=== PATIENT | female | born 1945 | race Caucasian/White ===

== ENCOUNTER 2024-11-25 22:06 | Inpatient (IN) | payer OTHER, SELFPAY ==
[2024-11-25] VITALS (9 sets, daily range): BP systolic 97–121; BP diastolic 59–85; BMI 27.0; BMI 26.3
--- NOTE | 2024-11-25 15:58 | ED TECH ---
hard stick. unable to obtain labs in triage
--- NOTE | 2024-11-25 17:30 | ED.GENMED ---
History of Present Illness
General
Chief Complaint: Breathing Problem
Source: patient
Exam Limitations: none
Time Seen by Provider: 11/25/24 17:06
History of Present Illness
History of Present Illness:
79yoF with a history of coronary artery disease s/p CABG x3 8 months ago, atrial fibrillation, CHF, and tobacco use (1/2ppd) presenting for evaluation of shortness of breath. Patient has been having issues with dizziness and shortness of breath
over the past 1-1.5 months. She is having issues with ambulation and states she will feel like she is going to fall over due to feeling dizzy and short of breath. Symptoms are also triggered by bending over or reaching overhead. She went to
[facility] 2 days ago due to shortness of breath after she ran out of her inhaler. She was already scheduled to have an AICD placed today but she is unsure why. She was admitted for 27 hours and states she spent the first 25 hours in the ED. Once
she got up to a room yesterday, she was told that her ICD placement was cancelled due to poor kidney function and that she may need dialysis. Patient left AMA and is here for a second opinion. She also reports being told 2 weeks ago that she had
heart failure and has never been told this before. Her primary safety technician is Dr. Dowd at [place].
Phy Exam
Physical Exam
Physical Exam:
Chronically ill-appearing, no acute distress
General Physical Exam
General Presentation: no apparent distress
General Skin: warm and dry
General Habitus: elderly
General Mental: alert
ENT Exam
ENT Exam: normocephalic
Cardiovascular Exam
Cardiovascular Exam: regular rate/rhythm and other (1-2+ pitting edema in lower extremities)
Pulmonary Exam
Pulmonary Exam: lungs clear, no respiratory distress, no crackles and no rhonchi
Neurological Exam
Neurological Exam: alert
Juliocesar Coma Scale
Eye Opening: Spontaneous
Verbal Response: Oriented
Motor Response: Obeys Commands
GCS Total Score: 15
Skin Exam
Skin Exam: normal color and warm/dry
Psychiatric Exam
Psychiatric Exam: normal mood/affect
Scores
Heart Failure Risk
Heart Failure Risk Score: Not Applicable
Course
Orders/Labs/Results
Orders:
Orders
11/25/24 Dinner
Cholesterol Lowering
At Your Request: Full Participation
Cholesterol Lowering: Sodium, 2 Gram
11/25/24 15:23
ECG [Electrocardiogram (*1)] Urgent
Reason for Study: Shortness of Breath
EKG- Treatment ONCE
11/25/24 17:39
Cardiac Monitoring- Treatment ONCE
CR Chest - 2 Views Urgent
Comment:
Reason For Exam: SOB
11/25/24 18:33
Complete Blood Count/With Diff Urgent
Comprehensive Metabolic Panel Urgent
11/25/24 19:39
NT-proBNP Urgent
Troponin I Urgent
11/25/24 20:39
Furosemide [Lasix] 40 mg IV NOW STA
11/25/24 21:32
Admit/Transfer Patient As Directed
Co-Sign Provider:
Level of Care: Inpatient admission
Assign to:: Telemetry
Physician / Group: [email or web address]
Diagnosis: chf exacerbation
Reason for Telemetry: Arrhythmia
Date to Stop Telemetry: 11/28/24
Time to Stop Telemetry: 11:00
Reason for Hospitalization: chf exacerbation
Expected length of stay greater than two midnights?: Yes
ELOS- Estimated Length of Stay in days: 2
I certify the patient meets the requirements for IP care: Yes
Code Status As Directed
Resuscitation Status: Do not resuscitate
Reached after discussion with pt or family/Healthcare POA: Yes
DNR Bracelet Application ONCE
PRN Pain Medication Management As Directed
May give lesser potent ordered pain med per pt: Yes
preference::
Protocol:: Medication orders for pain may be administered in a
manner that supports deferring to patient preference
when the pt is:
- Requesting an ordered lesser potent pain medication.
Least to most potent pain medications are defined
as: acetaminophen < NSAID < tramadol < opioids
(morphine, oxycodone, hydromorphone).
- Requesting a lesser dose of the same medication IF
ORDERED.
- Requesting a less intrusive route of administration
if both routes are prescribed by the provider (PO <
IV).
11/25/24 21:43
polyvinyl alcohol 2 drop OPHTH TID PRN
11/25/24 22:41
Atorvastatin [Lipitor] 40 mg PO HS
11/25/24 22:41
Activity As Directed
Activity Level: As Tolerated
Pneumatic Compression Sleeves As Directed
Type: Knee high
Vital Signs As Directed
Frequency: Per unit guidelines
DX Deep Vein Thrombosis Video Routine
11/25/24 22:53
Carboxymethylcellulose [Refresh Celluvisc Gel] 1 drops BOTH EYES Q6HPRN PRN
11/25/24 23:00
Artificial Tears (Pf) [Refresh Eye Drops (Pf)] 2 drops OPHTH ONCE ONE
11/26/24 06:00
Complete Blood Count/With Diff IN AM
Comprehensive Metabolic Panel IN AM
Levothyroxine [Synthroid] 150 mcg PO DAILY @ 0600
11/26/24 08:00
Amiodarone [Pacerone] 200 mg PO BID
Aspirin Low Dose EC [Aspir Low (Enteric Coated)] 81 mg PO DAILY
Calcium Carbonate [Oscal Shen 500] 500 mg PO DAILY
Metoprolol Xl [Toprol Xl] 25 mg PO BID
Rivaroxaban [Xarelto] 15 mg PO DAILY
Tiotropium [place] 2.5 Mcg [Spiriva Respimat 2.5 Mcg] 2 puff INH R DAILY
11/28/24 11:00
DC Protocol for Telemetry ONCE
Abnormal Lab Results
11/25/24 11/25/24
18:33 19:39
RBC 3.87 L 10^6/uL
(4.20-5.40)
Hgb 11.5 L g/dL
(12.0-16.0)
Hct 34.9 L %
(37.0-47.0)
RDW 21.2 H %
(11.5-14.5)
Absolute Lymphs (auto) 0.4 L 10^3/uL
(1.2-3.4)
Immature Gran % 0.6 H %
(0-0.5)
Neutrophils % 85.7 H %
(42.2-75.2)
Lymphocytes % 5.9 L %
(20.5-51.1)
Chloride 112 H mmol/L
(98-107)
BUN 64 H mg/dl
(7-17)
Creatinine 2.3 H mg/dL
(0.6-1.0)
Glucose 124 H mg/dl
(70-99)
Calcium 7.6 L mg/dl
(8.4-10.2)
AST 57 H U/L
(14-36)
ALT 73 H U/L
(0-35)
Troponin I 0.051 H* ng/ml
11/25/24 18:33
11/25/24 18:33
Vital Signs
Initial and Last Documented VS:
Initial Vital Signs
Temp Pulse Resp BP Pulse Ox
97.5 F 87 22 110/66 99
11/25/24 15:37 11/25/24 15:37 11/25/24 15:37 11/25/24 15:37 11/25/24 15:37
Last Documented Vital Signs
Temp Pulse Resp BP Pulse Ox
97.7 F 95 18 121/79 97
11/25/24 23:00 11/25/24 23:00 11/25/24 23:00 11/25/24 23:00 11/25/24 23:00
MDM/Problems Addressed
Differential Diagnosis Includes:
79yoF here for a second opinion after leaving AMA from [facility] yesterday. Patient is a poor historian and is unable to provide any details from her hospital stay. She was scheduled to have an AICD placed today which was cancelled due to
poor kidney function. We were able to obtain records from [facility]. She was noted to be hyperkalemic with an OFELIA 2 days ago. Creatinine was up to 3.5 and baseline was around 1.5. She was also treated with IV diuresis. Patient is chronically
ill-appearing in no distress. She does have some peripheral edema on exam. Differential diagnosis includes but is not limited to: CHF exacerbation, OFELIA, cardiorenal syndrome, less likely ACS
Initial ED plan: Check cardiac labs, EKG, and chest x-ray.
*Pulse Oximetry
SaO2: 99
Oxygen Mode of Delivery: Room air
Patient hypoxic: no (99%)
*EKG
Interpreted by ED Provider?: Yes
EKG Intrepretation Date: 11/25/24
Heart Rate: 94
Rate: normal
Rhythm: sinus
[place]: left axis deviation
QRS Pattern: left bundle branch block
Ischemia: no ischemia
*Critical Care Note
Total Time (30-74mins, 75-104mins- exclusive of procedures): Not Applicable
Update Note
Update Note:
Creatinine has improved to 2.3 but is still above baseline. Potassium within normal limits. Troponin 0.051 which is similar to the values from her recent hospitalization. BNP >27K. Chest x-ray shows evidence of vascular congestion. 40 mg IV
Lasix ordered and patient admitted for further management.
ED Attending Note
-
Portions of this chart may have been created with voice recognition software.� Occasional wrong word or��sound alike� substitutions may have occurred due to the inherent limitations of voice recognition software.
Discharge Plan
Departure
Patient Disposition: Admit
Date of Disposition: 11/25/24
Time of Disposition: 20:44
Presentation/result/management discussed w/ accepting MD/DO: Hospitalist
Discharge Problem:
Acute kidney injury, Acute exacerbation of CHF (congestive heart failure)
Interventions
Interventions:
*Risk Screen - Suicide Last Done: 11/25/24 15:49
*General Assessment Last Done: 11/25/24 17:35
*Neglect/Abuse Screening Last Done: 11/25/24 15:49
*ED- Fall Risk Assessment Last Done: 11/25/24 17:35
*ED COVID-19 Vaccine History Last Done: 11/25/24 17:35
*Nursing Disposition Last Done: 11/25/24 22:59
ED- Cardiac Assessment Last Done: 11/25/24 17:35
ED- Pulmonary Assessment Last Done: 11/25/24 17:35
Discharge Date and Time
Discharge Date/Time: 11/25/24 22:40
[2024-11-25 18:39] LABS: Hematocrit 34.9 % (37.0-47.0); Hemoglobin 11.5 g/dL (12.0-16.0); Mean Corp Hgb Conc. 33.0 g/dL (33.0-37.0); Mean Corpuscular Volume 90.2 fL (81.0-99.0); Nucleated Red Blood Cells % 0.8 %; Platelet Count 238 10^3/uL (130-400); Red Cell Dist. Width 21.2 % (11.5-14.5)
[2024-11-25 19:10] LABS: ALT (SGPT) 73 U/L (0-35); AST (SGOT) 57 U/L (14-36); Albumin 3.7 g/dl (3.5-5.0); Alkaline Phosphatase 119 U/L (38-126); Blood Urea Nitrogen 64 mg/dl (7-17); Calcium 7.6 mg/dl (8.4-10.2); Carbon Dioxide 22 mmol/L (22-30); Chloride 112 mmol/L (98-107); Estimated Creatinine Clearance 19 ml/min; Glucose 124 mg/dl (70-99); Potassium 4.3 mmol/L (3.5-5.1); Sodium 141 mmol/L (135-145); Total Protein 6.4 g/dl (6.3-8.2); eGFR 21.22
[2024-11-25 20:13] LABS: Troponin I 0.051 ng/ml
[2024-11-25] MEDS: LASIX 40 MG IV (20:48)
--- NOTE | 2024-11-25 21:34 | HPS.HSE ---
Family Physician
-
Family Physician: * NONE
Chief Complaint
-
shortness of breath
History of Present Illness
79-year-old female past medical history of CAD status post CABG 8 months ago, paroxysmal atrial fibrillation on Xarelto, CKD 3B, ischemic cardiomyopathy, COPD, pulmonary hypertension pulmonary embolism, aortic valve replacement, severe mitral valve
regurgitation status post replacement with tissue graft, thyroid resection with hypothyroidism, laryngeal cancer status post resection, obesity, presenting with shortness of breath. She has been having dizziness and shortness of breath for the past
few months. She was admitted at [facility] recently for decompensated CHF complicated by hypotension as well as OFELIA and hyperkalemia. She was gently diuresed.
She is having issues with ambulation and states that she feels like she is going to fall over due to feeling dizzy and short of breath. This is also triggered by bending over or reaching overhead. She went to [facility] 2 days ago due to shortness
of breath after she ran out of her inhaler. She was scheduled to have an ICD placed today for ischemic cardiomyopathy.. While at [facility] she was admitted for 27 hours and she spent the first 25 hours in the emergency room. She states that after
she got up to her room he was told that the ICD placement was canceled due to poor kidney function and possibly requiring dialysis. She left AMA because she was not getting answers from the physicians.
2 weeks ago she was told that she was in congestive heart failure denies any prior history of this. Her primary tenderizer tender is Dr. Dowd at [place].
Medical History
Past Medical History
Past Medical History: Reports Other (CAD status post CABG 8 months ago, paroxysmal atrial fibrillation on Xarelto, CKD 3B, ischemic cardiomyopathy, COPD, pulmonary hypertension pulmonary embolism, aortic valve replacement, severe mitral valve
regurgitation status post replacement with tissue graft, thyroid resection with hypothyroidism)
Past Surgical History: Reports Other (Thyroidectomy, esophageal cancer s/p resection, right carpal tunnel repair, tracheostomy,)
Social History
Tobacco: Smoker
Alcohol: None
Drug: None
Family History
Family History: Not pertinent
Allergies / Home Medications
Allergies reflects when Allergies were last updated in ?.
Home Medications with original date entered in ?
Allergy/Medication List:
Allergies
Allergy/AdvReac Type Severity Reaction Status Date / Time
levothyroxine Allergy Intermediate Unknown Verified 11/25/24 15:37
Home Medications
amiodarone 200 mg tablet 200 mg PO BID 11/25/24
aspirin 81 mg tablet,delayed release 81 mg PO DAILY 11/25/24
atorvastatin 40 mg tablet (Lipitor) 40 mg PO HS 11/25/24
calcium carbonate 500 mg PO DAILY 11/25/24
carboxymethylcellulose 0.5 %-glycerin 0.9 % eye drops (Refresh Optive) 1 drp BOTH EYES Q6HPRN PRN dryness 11/25/24
levothyroxine 150 mcg tablet (Synthroid) 150 mcg PO DAILY 11/25/24
metoprolol succinate 25 mg tablet,extended release 24 hr (Toprol XL) 25 mg PO BID 11/25/24
polyvinyl alcohol 1.4 % eye drops 2 drp ophthalmic (eye) TID PRN Reduction Of Transepidermal Water Loss 11/25/24
rivaroxaban 15 mg tablet (Xarelto) 15 mg PO DAILY 11/25/24
sacubitril 24 mg-valsartan 26 mg tablet (Entresto) 1 tab PO BID 11/25/24
umeclidinium 62.5 mcg/actuation blister powder for inhalation (Incruse Ellipta) 1 inh inhalation R DAILY 11/25/24
Review of Systems
-
History Source: Patient
A 12 point ROS was completed and negative except as noted: Yes
Constitutional: Reports No Symptoms
EENT: Reports No Symptoms
Respiratory: Reports See HPI
Cardiac: Reports See HPI
Abdomen/GI: Reports No Symptoms
: Reports No Symptoms
Musculoskeletal: Reports No Symptoms
Skin: Reports No Symptoms
Neurological: Reports No Symptoms
Endocrine: Reports No Symptoms
Hematologic/Lymphatic: Reports No Symptoms
Psych: Reports No Symptoms
Physical Exam
Vital Signs
Vital Signs
Temp Pulse Resp BP Pulse Ox
97.5 F 92 16 99/68 96
11/25/24 15:37 11/25/24 21:15 11/25/24 21:15 11/25/24 21:00 11/25/24 21:15
Physical Exam
General: Well Developed, Well Nourished and No Apparent Distress
HEENT: NormoCephalic, Moist mucous membranes and Atraumatic
Respiratory: Clear
Cardiac: S1/S2, Regular Rhythm and Peripheral Edema; No Murmur or Rub
GI: Soft, Non Tender, Non Distended and Normal Bowel Sounds; No Organomegaly
Rectal: Deferred by Provider
Musculoskeletal: No Clubbing, No Cyanosis and No Edema
Skin: No Rash
Neuro: Nonfocal/grossly intact
Laboratory Results
-
11/25/24 18:33
11/25/24 18:33
Laboratory Results
Total Bilirubin 1.3 mg/dl (0.2-1.3) 11/25/24 18:33
AST 57 U/L (14-36) H 11/25/24 18:33
ALT 73 U/L (0-35) H 11/25/24 18:33
Alkaline Phosphatase 119 U/L (38-126) 11/25/24 18:33
Troponin I 0.051 ng/ml H* 11/25/24 19:39
Data Reviewed
-
Lab Data: Labs Reviewed by me
Old Records: Reviewed
Impression/Plan
-
IMPRESSION:
PLAN:
# Acute HFrEF exacerbation
# Advanced ischemic cardiomyopathy associate with hypotension
- Chest x-ray shows cardiomegaly, vascular flow appears cephalized suggesting elevated pulmonary venous pressures
- Cardiac BNP greater than 27,000
-EKG shows sinus rhythm with first-degree AV block with PACs
- Check I's and O's, daily weights
-40 IV Lasix given with blood pressure down to 90s
-Echo from September 28 shows EF of 10 to 15%, dense spontaneous echo contrast is noted in the left atrium layered thrombus is likely present
-Was supposed to have AICD placed today
- Cardiology consulted
# Acute kidney injury secondary to cardiorenal syndrome on CKD 3B
-Baseline creatinine around 1.5, was 3.5 two days ago
- Monitor with diuresis
-Continue to hold Entresto, spironolactone
- Nephrology consult
Aortic valve replacement
Bioprosthetic mitral valve replacement
Severe tricuspid regurgitation
# Transaminitis likely secondary to hepatic venous congestion
- Continue to monitor
CAD status post CABG
- Continue aspirin, statin
Paroxysmal atrial fibrillation
- Continue amiodarone
- Continue metoprolol
- Continue Xarelto
COPD
- Continue Incruse Ellipta
Pulmonary hypertension
Pulmonary nodules
Active smoker
- Smokes at least a pack a day
- Nicotine patch
Chronic anemia
- Hemoglobin 11.5
Hypothyroidism
- Continue levothyroxine
Esophageal cancer status post resection
Hyperlipidemia
DNR/DNI
DVT prophylaxis�Eliquis
cardiac diet
--- NOTE | 2024-11-25 23:00 | PTCARENOTE ---
Pt arrived to [address] from ED via stretcher. Pt able to stand and pivot to bed 317-2 with staff x2. Pt HINOJOSA, dizzy, feeling weak. Oriented to room with call reyes within reach. Care ongoing.
[2024-11-25] MEDS: REFRESH EYE DROPS (PF) 2 DROPS OPHTH (23:33)
[2024-11-25] MEDS: LIPITOR 40 MG PO (23:34)
[2024-11-26 03:00] VITALS: BP 102/64
[2024-11-26] MEDS: SYNTHROID PO (05:18)
[2024-11-26] MEDS: SPIRIVA RESPIMAT 2.5 MCG 2 PUFF INH (07:34)
[2024-11-26 07:36] LABS: Hematocrit 38.6 % (37.0-47.0); Hemoglobin 12.2 g/dL (12.0-16.0); Mean Corp Hgb Conc. 31.6 g/dL (33.0-37.0); Mean Corpuscular Volume 92.3 fL (81.0-99.0); Nucleated Red Blood Cells % 0.3 %; Platelet Count 241 10^3/uL (130-400); Red Cell Dist. Width 21.1 % (11.5-14.5)
[2024-11-26 07:45] LABS: ALT (SGPT) 71 U/L (0-35); AST (SGOT) 54 U/L (14-36); Albumin 4.1 g/dl (3.5-5.0); Alkaline Phosphatase 127 U/L (38-126); Blood Urea Nitrogen 60 mg/dl (7-17); Calcium 7.5 mg/dl (8.4-10.2); Carbon Dioxide 24 mmol/L (22-30); Chloride 110 mmol/L (98-107); Estimated Creatinine Clearance 19 ml/min; Glucose 77 mg/dl (70-99); Potassium 4.0 mmol/L (3.5-5.1); Sodium 143 mmol/L (135-145); Total Protein 7.0 g/dl (6.3-8.2); eGFR 21.22
[2024-11-26 07:50] VITALS: BP 119/76
[2024-11-26] MEDS: TOPROL XL 25 MG PO ×2 (08:53→21:03)
[2024-11-26] MEDS: XARELTO 15 MG PO (08:53)
[2024-11-26] MEDS: ASPIR LOW (ENTERIC COATED) 81 MG PO (08:53)
[2024-11-26] MEDS: PACERONE 200 MG PO ×2 (08:53→21:03)
[2024-11-26] MEDS: OSCAL CAL 500 500 MG PO (08:53)
[2024-11-26 09:00] VITALS: BMI 26.0
--- NOTE | 2024-11-26 10:08 | CON.CAR ---
Addendum entered and electronically signed by Casey Parks MD 11/26/24 19:47:
79-year-old woman reportedly with with history of CABG/bioprosthetic mitral valve replacement early 2024 who presented to [facility] with acute heart failure, presumed with reduced EF associated with hypotension and OFELIA. She left [facility] AM after
being told that she would get ICD which was then subsequently postponed related to OFELIA/CKD 3B. Typically followed at [place] with Dr. Dowd.
PMH: Laryngeal cancer/remote tracheostomy, pulmonary hypertension with prior pulmonary embolism, obesity, PAF on Xarelto, hypothyroidism
PSH: Thyroidectomy, esophageal cancer status postresection, thyroidectomy, carpal tunnel, CABG, bioprosthetic mitral valve replacement, left atrial appendage clip
SH: Smoker, no alcohol, single, worked in a [employer]
Current meds: Amiodarone 200 mg twice daily, aspirin 81 mg a day, atorvastatin 40 mg a day, levothyroxine 150 mcg daily, metoprolol ER 25 mg twice daily, rivaroxaban 15 mg a day, Spiriva
119/76, pulse 97, respiratory rate 14, talkative, pleasant, no acute distress, raspy voice, head neck exam unremarkable lungs are diminished in bases and somewhat decreased throughout with presumed underlying COPD, regular rate rhythm without
murmurs or gallops, JVD difficult to assess, abdomen benign, extremities without edema, distal pulses somewhat diminished
Sinus rhythm with first-degree AV block and PVCs, left bundle branch block with left axis
Hemoglobin 12.2, BUN/creatinine 60 and 2.3, potassium 4, proBNP greater than 27,000, troponin 0.051
Impression:
Acute on chronic heart failure with reduced EF
CABG 2024
Bioprosthetic mitral valve 2024
Presumed COPD
Paroxysmal atrial fibrillation on amiodarone
Hypertension
Hyperlipidemia
History of laryngeal carcinoma
History of pulmonary embolism
History of morbid obesity, over 200 pounds weight loss
OFELIA on CKD 3B
Plan:
All things considered, she looks surprisingly well. Her proBNP is greater than 27,000 but she is not in distress.
Entresto is currently on hold.
Optimization of GDMT will be challenging. Unclear whether Entresto can be restarted related to renal function and hypotension. Similarly, TAHIRA/ARB/spironolactone are best held at present. SGLT2 antagonist could be considered based on where GFR
settles out. Await renal consultation.
We will review records and optimize meds as possible. Check echocardiogram.
Will likely need ICD implant when optimized, encouraged her to follow-up to Dr. Dowd.
Original Note:
Consultation
Consultation Request
Date/Time Consultation Requested: 11/25/2024, 2234
Date/Time Consultation Performed: 10/31, 899
Requesting Provider: Dr. Long
Performing Provider: LENNOX Arce for Dr. Parks
Reason for Consultation: History of heart failure
Medical History
-
Chief Complaint: History of heart failure, kidney disease
History of Present Illness:
79-year-old female with past medical history of coronary artery disease and valvular heart disease status post CABG, AVR, and MVR approximately 8 months ago at [facility], paroxysmal atrial fibrillation on Xarelto, ischemic cardiomyopathy, chronic
kidney disease 3B, COPD, current smoker, pulmonary hypertension, pulmonary embolism, laryngeal cancer status post resection approximately 10 years ago, thyroid resection with hypothyroidism, obesity. She follows with Dr. Favian Dowd at [facility]
[place]. She was scheduled for elective ICD implantation there yesterday. She tells me she was there for 7 hours prior to getting a room and was then told that ICD could not be placed due to impaired kidney function and admission was suggested.
She was frustrated and left AMA. She then came to [place] as her son-in-law has been seen here and she wanted a second opinion.
She reports she had not seen a physician in 10 to 12 years until about a year ago when she developed shortness of breath and was found to have coronary artery disease and valvular heart disease status post CABG, AVR, and MVR. She tells me that ICD
has been advised and this was the third time the procedure was canceled. She denies history of syncope, palpitations, lightheadedness. No known ventricular arrhythmias. Does have history of paroxysmal atrial fibrillation and is on Xarelto and
amiodarone.
Yesterday was the first time she was aware that her kidney function was poor and that dialysis may be advised.
Currently reports she feels well and has no shortness of breath, palpitations, chest pain, edema, PND, orthopnea.
ED evaluation:
Chest x-ray: Vascular flow appears cephalized suggesting elevated pulmonary venous pressure
EKG: Normal sinus rhythm with first-degree AV block and left bundle branch block
proBNP greater than 27,000
Troponin 0.051, second troponin pending
BUN/creatinine 64/2.3, NA 141, K4.3, AST/ALT 57/73, hemoglobin 11.5, WBC 6.5, platelet 238.
Past medical history:
Coronary artery disease status post CABG approximately 8 months ago
Valvular heart disease status post AVR approximately 8 months ag0
Severe MR status post tissue mitral valve replacement approximately 8 months ago
Paroxysmal A-fib on Xarelto and amiodarone
Ischemic cardiomyopathy
COPD
Chronic kidney disease stage IIIb
Thyroid resection with hypothyroidism
Esophageal cancer status post resection
Obesity
Past Medical History
Past Medical History: Other (As above)
Past Surgical History: Other (Thyroidectomy, esophageal resection, CABG, AVR, MVR)
Social History
Tobacco: Smoker (Half pack per day)
Alcohol: Occasional (Rare)
Living: Alone
Family History
Family History: Reviewed & Not Pertinent
Allergies / Home Medications
Allergy/AdvReac Type Severity Reaction Status Date / Time
levothyroxine Allergy lethargic Verified 11/25/24 22:42
�Medication �Instructions �Recorded �Confirmed �Type
amiodarone 200 mg tablet 200 mg PO BID Arrhythmia 11/25/24 11/25/24 History
aspirin 81 mg tablet,delayed 81 mg PO DAILY Blood Clot 11/25/24 11/25/24 History
release Prevention/Tx
atorvastatin 40 mg tablet (Lipitor) 40 mg PO HS High Cholesterol 11/25/24 11/25/24 History
calcium carbonate 500 mg PO DAILY Gastrointestinal 11/25/24 11/25/24 History
Issue
carboxymethylcellulose 0.5 1 drp BOTH EYES Q6HPRN PRN dryness 11/25/24 11/25/24 History
%-glycerin 0.9 % eye drops
(Refresh Optive)
levothyroxine 150 mcg tablet 150 mcg PO DAILY Thyroid 11/25/24 11/25/24 History
(Synthroid)
metoprolol succinate 25 mg 25 mg PO BID Heart Failure 11/25/24 11/25/24 History
tablet,extended release 24 hr
(Toprol XL)
polyvinyl alcohol 1.4 % eye drops 2 drp ophthalmic (eye) TID PRN 11/25/24 11/25/24 History
Reduction Of Transepidermal Water
Loss
rivaroxaban 15 mg tablet (Xarelto) 15 mg PO DAILY Blood Clot 11/25/24 11/25/24 History
Prevention/Tx
sacubitril 24 mg-valsartan 26 mg 1 tab PO BID Heart Failure 11/25/24 11/25/24 History
tablet (Entresto)
umeclidinium 62.5 mcg/actuation 1 inh inhalation R DAILY 11/25/24 11/25/24 History
blister powder for inhalation Lung/Breathing Issues
(Incruse Ellipta)
Review of Systems
-
History Source: Patient
All other systems: Negative unless noted
Physical Exam
Vital Signs
Temp Pulse Resp BP Pulse Ox
97.6 F 97 14 119/76 95
11/26/24 07:50 11/26/24 07:50 11/26/24 07:50 11/26/24 07:50 11/26/24 07:43
GEN: No distress, awake, Ox3
HEENT: supple, anicteric, mmm
LUNGS: CTA, no wheezes/rales
CV: Reg, S1/S2, 1/6 syst LSB,
ABD: soft, BS+, NT/ND
EXT: No edema
NEURO: Gross non-focal
SKIN: Ecchymosis right upper extremity
Lab Results
11/26/24 07:01
11/26/24 07:01
Troponin I Cancelled 11/26/24 09:15
Kyt-M-Tarihmyrcmx Pept > 86372 pg/ml 11/25/24 19:39
Impression / Plan
-
PCP:
Primary poultry packer: Favian Dowd at [facility] [phone]
Impression:
Acute on chronic heart failure reduced EF
History of coronary artery disease status post CABG
Ischemic cardiomyopathy
Valvular heart disease status post AVR and MVR
Chronic kidney disease stage IIIB
A-fib
Left bundle branch block
Hypothyroidism status post thyroid resection
Laryngeal cancer status post resection
Previous cardiovascular studies:
Awaiting records from previous poultry packer
Plan:
Acute on chronic heart failure reduced EF
--proBNP greater than 27,000 and chest x-ray suggest elevated pulmonary venous pressures
- Patient denies shortness of breath.
- Received 1 dose of IV Lasix 40mg in ED but then with hypotension so now on hold
-Creatinine 2.3. Await records to see if this is her baseline.
- On Entresto, spironolactone, Toprol in outpatient setting
- Continue Toprol
- Hold Entresto and spironolactone due to OFELIA and hypotension
- Awaiting records from primary poultry packer
- She reports ICD advised and procedure canceled 3 times, most recently yesterday due to OFELIA with creatinine reportedly 3.5. Creatinine currently 2.3.
- Daily weights, I& O
- Once passed records reviewed, further recommendations may be made
Paroxysmal atrial fibrillation
- Continue oral anticoagulation with Xarelto. On 15 mg dose due to reduced GFR
- Continue home amiodarone, metoprolol
- Telemetry personally reviewed: Normal sinus rhythm with left bundle branch block 80s to 90s
Data Reviewed
-
EKG: Tracing Personally Visualized and interpreted
Labs: Labs Reviewed by me
Old Records: Requested
[2024-11-26 10:42] LABS: Troponin I 0.051 ng/ml
--- NOTE | 2024-11-26 11:00 | HFEDUCATE ---
79yo female admitted with SOB. Her Past medical history includes Acute HFrEF, cardiomyopathy, CAD, paroxysmal A-fib, COPD, pulm HTN, esophageal cancer post resection, COPD and CKD- cardiorenal syndrome. Her current echocardiogram shows an ejection
fraction of 10-15%. She lives alone. She does not follow a low NA diet or a fluid restriction and has a scale but will not weigh herself daily.
I provided HF education and discussed the usual lifestyle recommendations. I advised her to follow a low sodium diet of 2000-3000mg. per day and follow a 500-750mg. per meal restriction. I advised a 48 oz. fluid restriction per day and discussed
ways to achieve the recommendations. I also advised she should begin to weight herself daily and monitoring for any slight weight gain. I reviewed how to monitor for exacerbations. We discussed other alarming symptoms to watch for and when to notify
her provider. We discussed need for medications.
Recommendations:
Continue all HF recommended medications as ordered on discharge.
Limit sodium intake to <500-750 mg. per meal.
Limit fluid intake to <48 oz per day.
Daily weights and contact provider for any weight gain >3lbs in one day or 5lbs in one week.
Follow up with provider as recommended.
--- NOTE | 2024-11-26 12:56 | CM ---
Patient seen at bedside
IA completed
dx: chf exac
PMH: CAD status post CABG 8 months ago, paroxysmal atrial fibrillation on Xarelto, CKD 3B, ischemic cardiomyopathy, COPD, pulmonary hypertension pulmonary embolism, aortic valve replacement, severe mitral valve regurgitation status post replacement
with tissue graft, thyroid resection with hypothyroidism, laryngeal cancer status post resection, obesity, presenting with shortness of breath
Lves alone in an apartment, no steps
PLOF: Independent, reports does not use assistive device
DME: Walker, shower chair, raised toilet seat
states had VN in past through [facility], had rehab but does not recall name
PCP: reports she does not have one, goes to urgent care, Info given on residency clinic
Pharmacy: [facility]
PLAN: TBD, follow hospital progress, CM to follow for discharge planning/needs.
--- NOTE | 2024-11-26 13:13 | W.PN.HOSP.TC ---
Today's Communication/Plan
-
Assessment / Plan
Assessment / Plan
Acute on chronic HFrEF with a EF of 10 to 15%, NYHA class III-IV
IV diuretics
Hold Aldactone Entresto in the setting of renal dysfunction
Continue Toprol
Consider SGLT2 inhibitor upon discharge
Awaiting records from primary veterinarian assistant
May require ICD however appreciate cardiology's input
Acute kidney injury suspected secondary to OFELIA versus prerenal etiology as was n.p.o. for more than 27 hours prior day
Monitor with diuresis
Monitor urinary output
Hold Entresto Aldactone
Nephrology consulted
Valvular heart disease with aortic valve replacement and bioprosthetic mitral valve replacement
Outpatient valvular clinic
Transaminitis likely secondary to to hepatic venous congestion
Continue to monitor
CAD s/p CABG
Continue aspirin statin
P A-fib
Continue amiodarone and metoprolol
Continue Xarelto
COPD, without active wheezing
Continue MDIs
Pulmonary hypertension
Outpatient cardiology/pulmonary follow-up
Pulmonary nodules
Should be followed with outpatient pulmonary/PCP repeat imaging
Active smoker
Nicotine patch
Hypothyroidism
Continue levothyroxine
DNR/DNI
Anticipated Discharge: > 48 hours
Subjective/Interval History
-
Date of Service: November 26, 2024
Seen and examined. No new complaints. No acute overnight events.
Objective Data
-
Labs:
Laboratory Results
11/26/24
07:01
WBC 6.6
Hgb 12.2
Hct 38.6
Plt Count 241
Sodium 143
Potassium 4.0
Chloride 110 H
Carbon Dioxide 24
BUN 60 H
Creatinine 2.3 H
Glucose 77
Calcium 7.5 L
Total Bilirubin 1.3
AST 54 H
ALT 71 H
Alkaline Phosphatase 127 H
Vital Signs:
Vital Signs
Temp Pulse Resp BP Pulse Ox
97.6 F 97 14 119/76 95
11/26/24 07:50 11/26/24 07:50 11/26/24 07:50 11/26/24 07:50 11/26/24 07:43
I&O
11/25/24 11/26/24 11/27/24
06:59 06:59 06:59
Output Total 700 / 700 200 / 200
Balance -700 / -700 -200 / -200
Physical Exam
-
General: No Apparent Distress and Comfortable
HEENT: Normocephalic and Atraumatic
Respiratory: Clear to Auscultation; Negative Wheezes or Rales
Cardiac: Regular Rhythm, S1/S2 and Murmur
GI: Soft and Nontender
Musculoskeletal: No Clubbing
Skin: Warm and Dry
Neuro: Awake and AO x 3
Psych: Calm
--- NOTE | 2024-11-26 14:46 | W.CON.NEPH ---
Consultation
-
Date/Time Consultation Requested: November 25, 2024 at 2100
Date/Time Consultation Performed: November 26, 2024 at 1 PM
Requesting Provider: J Carlos Teran
Performing Provider: Dr. Pearson
Reason for Consultation: Acute versus chronic kidney disease
Medical History
-
Chief Complaint: Acute versus chronic kidney disease
History of Present Illness:
79-year-old female past medical history of CAD status post CABG 8 months ago, paroxysmal atrial fibrillation on Xarelto, CKD 3B, ischemic cardiomyopathy, COPD, pulmonary hypertension pulmonary embolism, aortic valve replacement, severe mitral valve
regurgitation status post replacement with tissue graft, thyroid resection with hypothyroidism, laryngeal cancer status post resection, obesity, presenting with shortness of breath. She has been having dizziness and shortness of breath for the past
few months. She was admitted at [facility] recently for decompensated CHF complicated by hypotension as well as OFELIA and hyperkalemia.
Renal consultation for creatinine of 2.3
The patient was supposed to get ICD placement which was canceled for various reasons apparently 3 times
Past Medical History
(CAD status post CABG 8 months ago, paroxysmal atrial fibrillation on Xarelto, CKD 3B, ischemic cardiomyopathy, COPD, pulmonary hypertension pulmonary embolism, aortic valve replacement, severe mitral valve regurgitation status post replacement with
tissue graft, thyroid resection with hypothyroidism)
Social History
Tobacco: Smoker
Alcohol: None
Family History
Family History: Not Pertinent
Allergies / Home Medications
Allergy/AdvReac Type Severity Reaction Status Date / Time
levothyroxine Allergy lethargic Verified 11/25/24 22:42
�Medication �Instructions �Recorded �Confirmed �Type
amiodarone 200 mg tablet 200 mg PO BID Arrhythmia 11/25/24 11/25/24 History
aspirin 81 mg tablet,delayed 81 mg PO DAILY Blood Clot 11/25/24 11/25/24 History
release Prevention/Tx
atorvastatin 40 mg tablet (Lipitor) 40 mg PO HS High Cholesterol 11/25/24 11/25/24 History
calcium carbonate 500 mg PO DAILY Gastrointestinal 11/25/24 11/25/24 History
Issue
carboxymethylcellulose 0.5 1 drp BOTH EYES Q6HPRN PRN dryness 11/25/24 11/25/24 History
%-glycerin 0.9 % eye drops
(Refresh Optive)
levothyroxine 150 mcg tablet 150 mcg PO DAILY Thyroid 11/25/24 11/25/24 History
(Synthroid)
metoprolol succinate 25 mg 25 mg PO BID Heart Failure 11/25/24 11/25/24 History
tablet,extended release 24 hr
(Toprol XL)
polyvinyl alcohol 1.4 % eye drops 2 drp ophthalmic (eye) TID PRN 11/25/24 11/25/24 History
Reduction Of Transepidermal Water
Loss
rivaroxaban 15 mg tablet (Xarelto) 15 mg PO DAILY Blood Clot 11/25/24 11/25/24 History
Prevention/Tx
sacubitril 24 mg-valsartan 26 mg 1 tab PO BID Heart Failure 11/25/24 11/25/24 History
tablet (Entresto)
umeclidinium 62.5 mcg/actuation 1 inh inhalation R DAILY 11/25/24 11/25/24 History
blister powder for inhalation Lung/Breathing Issues
(Incruse Ellipta)
Review of Systems
-
Currently no chest pain or shortness of breath
All other systems: Negative unless noted
Physical Exam
Vital Signs
Vital Signs
Temp Pulse Resp BP Pulse Ox
97.6 F 97 14 119/76 95
11/26/24 07:50 11/26/24 07:50 11/26/24 07:50 11/26/24 07:50 11/26/24 07:43
Lab Results
WBC 6.6 10^3/uL (4.8-10.8) 11/26/24 07:01
RBC 4.18 10^6/uL (4.20-5.40) L 11/26/24 07:01
Hgb 12.2 g/dL (12.0-16.0) 11/26/24 07:01
Hct 38.6 % (37.0-47.0) 11/26/24 07:01
Plt Count 241 10^3/uL (130-400) 11/26/24 07:01
Sodium 143 mmol/L (135-145) 11/26/24 07:01
Potassium 4.0 mmol/L (3.5-5.1) 11/26/24 07:01
Chloride 110 mmol/L (98-107) H 11/26/24 07:01
Carbon Dioxide 24 mmol/L (22-30) 11/26/24 07:01
BUN 60 mg/dl (7-17) H 11/26/24 07:01
Creatinine 2.3 mg/dL (0.6-1.0) H 11/26/24 07:01
eGFR 21.22 11/26/24 07:01
Glucose 77 mg/dl (70-99) 11/26/24 07:01
Calcium 7.5 mg/dl (8.4-10.2) L 11/26/24 07:01
Mje-H-Xyklgrjozhk Pept > 48611 pg/ml 11/25/24 19:39
Albumin 4.1 g/dl (3.5-5.0) 11/26/24 07:01
Physical Exam
General no acute distress
HEENT no cephalic atraumatic extraocular muscle intact no scleral icterus no JVD neck supple
lungs clear to auscultation bilateral
heart regular S1-S2 positive
abdomen soft nontender positive bowel sounds
extremities no edema pulses present bilateral
Neurologically nonfocal alert and oriented x 3
Skin no lesions no abrasions no petechiae
Psych normal affect no bizarre behavior
Data Reviewed
-
Radiology: Image Personally Visualized and interpreted
Labs: Labs Reviewed by me and Discussed with Patient
Assessment/Plan
-
79-year-old female past medical history of CAD status post CABG 8 months ago, paroxysmal atrial fibrillation on Xarelto, CKD 3B, ischemic cardiomyopathy, COPD, pulmonary hypertension pulmonary embolism, aortic valve replacement, severe mitral valve
regurgitation status post replacement with tissue graft, thyroid resection with hypothyroidism, laryngeal cancer status post resection, obesity, presenting with shortness of breath. She has been having dizziness and shortness of breath for the past
few months. She was admitted at [facility] recently for decompensated CHF complicated by hypotension as well as OFELIA and hyperkalemia.
Renal consultation for creatinine of 2.3
The patient was supposed to get ICD placement which was canceled for various reasons apparently 3 times
Impression.
Acute on chronic kidney disease uncertain baseline
COPD active smoker half a pack per day not on home oxygen
CAD status post CABG
CHF with plan ICD placement
Plan.
Creatinine is 2.3 uncertain baseline but stable= patient was told that she would need dialysis when she was recently at [facility] for CHF
She does not examine volume overloaded.
Despite elevation in BNP of 27,000, I will hold diuretics= currently on room air with no shortness of breath
Awaiting records.
No indication for diuretics at this time she did become hypotensive in the ER with 40 mg IV
may Consider right heart catheterization
Currently holding Entresto, spironolactone,
[2024-11-26 15:06] VITALS: BP 107/76
[2024-11-26 19:50] VITALS: BP 112/70
[2024-11-26] MEDS: LIPITOR 40 MG PO (21:03)
[2024-11-26 23:19] VITALS: BP 112/66
[2024-11-27 03:00] VITALS: BP 111/61
[2024-11-27] MEDS: SYNTHROID 150 MCG PO (05:35)
[2024-11-27 07:00] VITALS: BP 117/69
[2024-11-27 07:19] LABS: Hematocrit 36.3 % (37.0-47.0); Hemoglobin 11.7 g/dL (12.0-16.0); Mean Corp Hgb Conc. 32.2 g/dL (33.0-37.0); Mean Corpuscular Volume 92.4 fL (81.0-99.0); Platelet Count 207 10^3/uL (130-400); Red Cell Dist. Width 21.0 % (11.5-14.5)
[2024-11-27] MEDS: ASPIR LOW (ENTERIC COATED) 81 MG PO (07:45)
[2024-11-27] MEDS: TOPROL XL 25 MG PO (07:45)
[2024-11-27] MEDS: PACERONE 200 MG PO (07:45)
[2024-11-27] MEDS: OSCAL CAL 500 500 MG PO (07:45)
[2024-11-27 07:56] LABS: Blood Urea Nitrogen 55 mg/dl (7-17); Calcium 7.1 mg/dl (8.4-10.2); Carbon Dioxide 23 mmol/L (22-30); Chloride 109 mmol/L (98-107); Estimated Creatinine Clearance 24 ml/min; Glucose 86 mg/dl (70-99); Potassium 4.3 mmol/L (3.5-5.1); Sodium 141 mmol/L (135-145); eGFR 28.48
[2024-11-27] MEDS: SPIRIVA RESPIMAT 2.5 MCG INH (08:13)
--- NOTE | 2024-11-27 09:18 | PN.CDI ---
CDI
- -
CDI:
Physician Documentation Request
Admit Date: 11/25/24 22:06
Dear Doctor,
Please review the following and provide your response in the progress notes.
Clinical Indicators:
Pt admitted for Acute on chronic HFrEF and OFELIA.
Laboratory Tests
11/25/24 11/26/24
19:39 09:57
Troponin I 0.051 H* 0.051 H*
Based on the above abnormal lab values, could you clarify in the progress notes, the appropriate diagnosis, if significant, that supports the above lab abnormalities and additional evaluation, monitoring and/or treatment rendered:
Non ischemic myocardial injury
Insignificant abnormal lab values
Other
Use of terms such as suspected, likely, concern for, or probable (associated with a specific diagnosis that is being evaluated, monitored, or treated as if it exists) are acceptable and can be coded in the inpatient setting, when documented at the
time of discharge.
Thank you,
Lidia Burgess RN, BSN
CDI Specialist
[place] [employer]
Please use your independent medical judgment in providing your response.
[2024-11-27] MEDS: XARELTO 15 MG PO (09:34)
[2024-11-27 09:41] VITALS: BMI 26.2
--- NOTE | 2024-11-27 10:05 | W.PN.CARDCBS ---
Today's Communication / Plan
-
Patient insisting she wants to leave
Discharge home on Lasix 20 mg daily, Toprol 25 mg twice daily, amiodarone 200 mg twice daily, hydralazine 10 mg 3 times daily
Avoid nephrotoxic agents
Will arrange for patient to follow-up with her outpatient sander hand
BMP in 1 week
Impression / Plan
-
PCP:
Primary sander hand: Favian Dowd at [facility] [phone]
Impression:
Acute on chronic heart failure reduced EF, rpobnp >27,000
Abnormal troponin, peak 0.051
History of coronary artery disease status post CABG
Ischemic cardiomyopathy
Valvular heart disease status post AVR and MVR
Chronic kidney disease stage IIIB
A-fib
Left bundle branch block
Hypothyroidism status post thyroid resection
Laryngeal cancer status post resection
Previous cardiovascular studies:
Awaiting records from previous sander hand
Echo 11/27/2024: EF 20 to 25%. Mild LVH with dilated left ventricle and global hypokinesis with septal and dyskinesis, mid and apical inferior and apical akinesis. Severe left atrial dilation. Bioprosthetic mitral valve with mean gradient 2 and no
regurgitation. Moderate to severe TR with PAP 29 mmHg
Plan:
Acute on chronic heart failure reduced EF
-proBNP greater than 27,000 and chest x-ray suggest elevated pulmonary venous pressures
- Patient denies shortness of breath.
- Received 1 dose of IV Lasix 40mg in ED but then with hypotension so now on hold
- Creatinine 2.3 on admission, improved to 1.8 (11/27). Unclear baseline but reportedly was 3.5 earlier this week. Await records to see if this is her baseline.
- On Entresto, spironolactone, Toprol in outpatient setting
- Continue Toprol
- Hold Entresto and spironolactone due to OFELIA and hypotension.
- Patient insistent that she wants to go home even though we are recommending that she stay. Was on Lasix 20 mg 2-3 times a week as outpatient. Would discharge home on 20 mg Lasix daily dosing.
- She reports ICD advised and procedure canceled 3 times, most recently 11/25 due to OFELIA with creatinine reportedly 3.5. Noted to be 2.3 on admission, currently 1.8.
-Start Hydralazine 10 mg BID as she is unable to tolerate TAHIRA/ARB/ARNI or spironolactone secondary to OFELIA/CKD.
- Awaiting records from prior hospitalization and outpt sander hand. Never received
Paroxysmal atrial fibrillation
- Telemetry personally reviewed: Normal sinus rhythm with left bundle branch block 80s to 90s
- Continue oral anticoagulation with Xarelto. On 15 mg dose due to reduced GFR
- Continue home amiodarone, metoprolol
History of Present Illness:
79-year-old female with past medical history of coronary artery disease and valvular heart disease status post CABG, AVR, and MVR approximately 8 months ago at [place], paroxysmal atrial fibrillation on Xarelto, ischemic cardiomyopathy, chronic
kidney disease 3B, COPD, current smoker, pulmonary hypertension, pulmonary embolism, laryngeal cancer status post resection approximately 10 years ago, thyroid resection with hypothyroidism, obesity. She follows with Dr. Favian Dowd at [place]. She was scheduled for elective ICD implantation there yesterday. She tells me she was there for 7 hours prior to getting a room and was then told that ICD could not be placed due to impaired kidney function and admission was suggested.
She was frustrated and left AMA. She then came to [place] as her son-in-law has been seen here and she wanted a second opinion.
She reports she had not seen a physician in 10 to 12 years until about a year ago when she developed shortness of breath and was found to have coronary artery disease and valvular heart disease status post CABG, AVR, and MVR. She tells me that ICD
has been advised and this was the third time the procedure was canceled. She denies history of syncope, palpitations, lightheadedness. No known ventricular arrhythmias. Does have history of paroxysmal atrial fibrillation and is on Xarelto and
amiodarone.
Yesterday was the first time she was aware that her kidney function was poor and that dialysis may be advised.
Currently reports she feels well and has no shortness of breath, palpitations, chest pain, edema, PND, orthopnea.
Chest x-ray: Vascular flow appears cephalized suggesting elevated pulmonary venous pressure
EKG: Normal sinus rhythm with first-degree AV block and left bundle branch block
proBNP greater than 27,000
Troponin 0.051, second troponin pending
BUN/creatinine 64/2.3, NA 141, K4.3, AST/ALT 57/73, hemoglobin 11.5, WBC 6.5, platelet 238.
Progress Note - Building Inspection Engineer
Subjective
Date of Service: November 27, 2024
Patient seen and examined. Patient sitting on edge of bed who took her took monitoring engineer off and is dressed and is insisting she wants to go home because she has things to take care of. She reports she will then come back in 3 or 4 days after
she is taking care of all of her problems.
Objective
Labs:
11/27/24 07:05
11/27/24 07:05
Labs
Hgb 11.7 g/dL (12.0-16.0) L 11/27/24 07:05
Hct 36.3 % (37.0-47.0) L 11/27/24 07:05
Plt Count 207 10^3/uL (130-400) 11/27/24 07:05
Sodium 141 mmol/L (135-145) 11/27/24 07:05
Potassium 4.3 mmol/L (3.5-5.1) 11/27/24 07:05
BUN 55 mg/dl (7-17) H 11/27/24 07:05
Creatinine 1.8 mg/dL (0.6-1.0) H 11/27/24 07:05
Glucose 86 mg/dl (70-99) 11/27/24 07:05
Troponins
11/25/24 11/25/24 11/26/24
18:33 19:39 09:15
Troponin I Cancelled 0.051 H* Cancelled
11/26/24
09:57
Troponin I 0.051 H*
Vital Signs and I&O:
Vital Signs
Temp Pulse Resp BP Pulse Ox
98.2 F 97 19 117/69 97
11/27/24 07:00 11/27/24 07:00 11/27/24 07:00 11/27/24 07:00 11/27/24 07:00
Vital Signs
Temp Pulse Resp BP Pulse Ox
98.2 F 97 19 117/69 97
11/27/24 07:00 11/27/24 07:00 11/27/24 07:00 11/27/24 07:00 11/27/24 07:00
Intake & Output
11/25/24 11/26/24 11/27/24 11/28/24
06:59 06:59 06:59 06:59
Intake Total 960 / 960
Output Total 700 / 700 200 / 200
Balance -700 / -700 760 / 760
Physical Exam
Physical Exam
GEN: No distress, awake, Ox3
HEENT: supple, anicteric, mmm
LUNGS: Mildly decreased at bases CTA, no wheezes/rales
CV: Reg, S1/S2, 1/6 syst murmur
ABD: soft, BS+, NT/ND
EXT: No edema, clubbing or cyanosis
NEURO: Gross non-focal
SKIN: No rash, warm, dry, pink
[2024-11-27 10:51] VITALS: BP 114/73
--- NOTE | 2024-11-27 11:12 | W.PN.UPDATE ---
Update Note
Progress Note Update
79-year-old woman reportedly with with history of CABG/bioprosthetic mitral valve replacement early 2024 who presented to [facility] with acute heart failure, presumed with reduced EF associated with hypotension and OFELIA. She left [facility] after
being told that she would get ICD which was then subsequently postponed related to OFELIA/CKD 3B. Typically followed at [place] with Dr. Dowd.
PMH: Laryngeal cancer/remote tracheostomy, pulmonary hypertension with prior pulmonary embolism, obesity, PAF on Xarelto, hypothyroidism
PSH: Thyroidectomy, esophageal cancer status postresection, thyroidectomy, carpal tunnel, CABG, bioprosthetic mitral valve replacement, left atrial appendage clip
SH: Smoker, no alcohol, single, worked in a [employer]
Current medications: Amiodarone 200 twice daily, aspirin 81 mg a day, atorvastatin 40 mg at bedtime, calcium, levothyroxine 150 mcg daily, metoprolol ER 25 twice daily, rivaroxaban 15 daily, Spiriva
114/73, pulse 89, respiratory rate 818, afebrile, sats are 98%, weight is 73.6 kg, up 0.4 kg, diminished breath sounds in bases but overall relatively clear, JVD approximately 8, regular rate and rhythm without murmurs or gallops, extremities
without much edema
Hemoglobin is 11.7, platelets are 207, BUN/creatinine are 55 and 1.8, creatinine had been 2.3, potassium is 4.3
Echo: EF 20-25%, normal function of bioprosthetic mitral valve, aortic sclerosis without regurgitation, moderate to severe TR with top normal pulmonary artery pressure
Plan:
Overall, she looks remarkably stable given her EF.
Her creatinine has dropped off Entresto.
Currently she is not on a diuretic.
At present, TAHIRA/ARB/MRA/ARNI probably best avoided
Would add low-dose hydralazine and nitrates.
Ideally, would like another day or 2 to titrate medications. However patient is insistent on leaving.
If discharged, recommended cardiac medications:
Amiodarone 200 mg twice daily, possibly decreased to 200 mg daily at follow-up
Aspirin 81 mg daily
Atorvastatin 40 mg daily
Metoprolol ER 25 mg twice daily
Rivaroxaban 15 mg daily
Hydralazine 10 mg twice daily (new)
Nitroglycerin patch 0.1 mg/h while awake (new)
Furosemide 20 mg as needed weight gain over 3 pounds from current weight
BMP in 1 week
Would stop Entresto
Follow-up to Dr. Dowd, who can hopefully facilitate ICD/ED TRANSPORTER-D implantation
If patient desires to transfer cardiology care, our number is [phone]
Please see separate note of Jerry Alexander. Reviewed in detail and agree, unless otherwise specified.
Total time: 55 minutes
--- NOTE | 2024-11-27 11:15 | CM ---
Addendum entered by Nel Coon 11/27/24 15:11:
family transport
Addendum entered by Nel Coon 11/27/24 14:58:
Patient discharged to home
PLAN: Home, no needs
Original Note:
Patient chart reviewed
echo today
await medical records
Nephrology consult
Cardiology consult
PLAN: TBD, follow hospital progress, CM to follow for discharge planning/needs.
--- NOTE | 2024-11-27 11:36 | W.PN.NEPH.PH ---
Today's Communication / Plan
-
Follow BMP
Holding diuretics and Entresto
Follow-up urinalysis
Creatinine with improvement
Would be nice to have accurate I's and
Assessment/Plan
-
79-year-old female past medical history of CAD status post CABG 8 months ago, paroxysmal atrial fibrillation on Xarelto, CKD 3B, ischemic cardiomyopathy, COPD, pulmonary hypertension pulmonary embolism, aortic valve replacement, severe mitral valve
regurgitation status post replacement with tissue graft, thyroid resection with hypothyroidism, laryngeal cancer status post resection, obesity, presenting with shortness of breath. She has been having dizziness and shortness of breath for the past
few months. She was admitted at [facility] recently for decompensated CHF complicated by hypotension as well as OFELIA and hyperkalemia.
Renal consultation for creatinine of 2.3
The patient was supposed to get ICD placement which was canceled for various reasons apparently 3 times
Impression.
Acute on chronic kidney disease uncertain baseline
COPD active smoker half a pack per day not on home oxygen
CAD status post CABG
CHF with plan ICD placement
Plan.
Creatinine down to 1.8 uncertain baseline but stable= patient was told that she would need dialysis when she was recently at [facility] for CHF
She does not examine volume overloaded.
Despite elevation in BNP of 27,000, I will continue to hold diuretics= currently on room air with no shortness of breath
Awaiting records.
No indication for diuretics at this time she did become hypotensive in the ER with 40 mg IV
Consider right heart catheterization
Currently holding Entresto, spironolactone,currently hemodynaically stable
check UA
-
-
Date of Service: November 27, 2024
CC / HPI / ROS
-
Chief Complaint:
Acute kidney injury
History of Present Illness:
Hemodynamically more stable
Creatinine down to 1.8
Review of Systems:
No fevers
Incontinent
Labs
-
Labs:
WBC 6.5 10^3/uL (4.8-10.8) 11/27/24 07:05
RBC 3.93 10^6/uL (4.20-5.40) L 11/27/24 07:05
Hgb 11.7 g/dL (12.0-16.0) L 11/27/24 07:05
Hct 36.3 % (37.0-47.0) L 11/27/24 07:05
Plt Count 207 10^3/uL (130-400) 11/27/24 07:05
Sodium 141 mmol/L (135-145) 11/27/24 07:05
Potassium 4.3 mmol/L (3.5-5.1) 11/27/24 07:05
Chloride 109 mmol/L (98-107) H 11/27/24 07:05
Carbon Dioxide 23 mmol/L (22-30) 11/27/24 07:05
BUN 55 mg/dl (7-17) H 11/27/24 07:05
Creatinine 1.8 mg/dL (0.6-1.0) H 11/27/24 07:05
eGFR 28.48 11/27/24 07:05
Glucose 86 mg/dl (70-99) 11/27/24 07:05
Calcium 7.1 mg/dl (8.4-10.2) L 11/27/24 07:05
Ygp-A-Qdbnhmyakzn Pept > 13108 pg/ml 11/25/24 19:39
Albumin 4.1 g/dl (3.5-5.0) 11/26/24 07:01
Physical Exam
-
Vital Signs:
Vital Signs
Temp Pulse Resp BP Pulse Ox
97.3 F 89 19 114/73 98
11/27/24 10:51 11/27/24 10:51 11/27/24 10:51 11/27/24 10:51 11/27/24 10:51
Cardiovascular:: Regular rate and rhythm
Respiratory:: Bilateral: Coarse
Lung Excursion:: Normal
Abdomen:: Nontender and Soft
Bowel Sounds:: Normal
Extremity Edema:: None: Bilateral:
Velasco Catheter: No
--- NOTE | 2024-11-27 12:42 | W.PN.HOSP.TC ---
Today's Communication/Plan
-
Assessment / Plan
Assessment / Plan
NAD
Scleral Anicteric
MMM
No JVD
Bibasilar crackles
RRR, S1/S2
Soft, NT, ND, BS+
Warm, Dry
AAOx3
Calm
Acute on chronic HFrEF with a EF of 10 to 15%, NYHA class III-IV, at this time compensated and does not appear volume overloaded
Hold diuretic
Hold Aldactone Entresto in the setting of renal dysfunction
Continue Toprol
Consider SGLT2 inhibitor upon discharge
Awaiting records from primary scenario writer
May require ICD however appreciate cardiology's input
Acute kidney injury suspected secondary to OFELIA versus prerenal etiology as was n.p.o. for more than 27 hours prior day
Improving renal function
Off diuresis
Monitor urinary output
Hold Entresto Aldactone
Nephrology consulted
Valvular heart disease with aortic valve replacement and bioprosthetic mitral valve replacement
Outpatient valvular clinic
Transaminitis likely secondary to to hepatic venous congestion
Continue to monitor
CAD s/p CABG
Continue aspirin statin
P A-fib
Continue amiodarone and metoprolol
Continue Xarelto
COPD, without active wheezing
Continue MDIs
Pulmonary hypertension
Outpatient cardiology/pulmonary follow-up
Pulmonary nodules
Should be followed with outpatient pulmonary/PCP repeat imaging
Active smoker
Nicotine patch
Hypothyroidism
Continue levothyroxine
DNR/DNI
Anticipated Discharge: Within 24 hours
Subjective/Interval History
-
Date of Service: November 27, 2024
Seen and examined. No new complaints. No acute overnight events.
Objective Data
-
Labs:
Laboratory Results
11/27/24
07:05
WBC 6.5
Hgb 11.7 L
Hct 36.3 L
Plt Count 207
Sodium 141
Potassium 4.3
Chloride 109 H
Carbon Dioxide 23
BUN 55 H
Creatinine 1.8 H
Glucose 86
Calcium 7.1 L
Vital Signs:
Vital Signs
Temp Pulse Resp BP Pulse Ox
97.3 F 89 19 114/73 98
11/27/24 10:51 11/27/24 10:51 11/27/24 10:51 11/27/24 10:51 11/27/24 10:51
I&O
11/26/24 11/27/24 11/28/24
06:59 06:59 06:59
Intake Total 960 / 960
Output Total 700 / 700 200 / 200
Balance -700 / -700 760 / 760
--- NOTE | 2024-11-27 12:59 | W.DCSUMMARY ---
Addendum entered and electronically signed by Richard Mauricio MD 11/29/24 14:32:
Non ischemic myocardial injury
Original Note:
Discharge Summary
Discharge Data
Date of Admission: 11/25/24
Date of Discharge: 11/27/24
-
Pending Results: No
Hospital Course
79-year-old female past medical history of CAD status post CABG 8 months ago, paroxysmal atrial fibrillation on Xarelto, CKD 3B, ischemic cardiomyopathy, COPD, pulmonary hypertension pulmonary embolism, aortic valve replacement, severe mitral valve
regurgitation
Presented to [facility] with acute heart failure presumed with reduced EF associated with hypotension and OFELIA. Eventually left [facility] after being recommended ICD placement however subsequently postponed due to OFELIA/CKD 3B. Follows
with tellers supervisor Dr. Dowd. Once arrived home family recommended to come to [facility] for further evaluation. Here received 1 dose of IV Lasix continue to monitor off. Renal function was 2.3 for 2 days improved to 1.8 on the day of
discharge. Evaluated by cardiology recommended to take 20 mg Lasix as needed for weight gain of more than 3 pounds at current weight. Additionally started on hydralazine and Entresto has been discontinued.
Follow-up to Dr. Dowd, who can hopefully facilitate ICD/COMMERCIAL CREDIT HEAD-D implantation
If patient desires to transfer cardiology care, our number is [phone]
Seen and examined on day of discharge. No new complaints. No acute overnight events.
Ready to go home
NAD
Scleral Anicteric
MMM
No JVD
CTABL
RRR, S1/S2
Soft, NT, ND, BS+
Warm, Dry
AAOx3
Calm
Feels short of breath worsening symptomatology weight gain lower extremity edema that should present to the nearest emergency department
Should continue to follow-up with her normal outpatient tellers supervisor
More than 30 minutes spent in discharge including
Final examination of the patient
Summarizing hospital stay
Instructions for continuing care to all relevant caregivers
Preparation of discharge records, prescriptions, and referral forms
Total time spent (in minutes): 32mins
Discharge Plan
-
Patient Disposition: Home (Routine Discharge)
Discharge Diagnosis/Procedures: Acute on chornic HFrEF exacterbation
OFELIA
Condition: Fair
Diet: As tolerated, Low Fat, Low Cholesterol, Low Sodium and Restrict fluids to 48 oz
Activity: As tolerated
Activity Restrictions/Additional Instructions:
Presented to [facility] with acute heart failure presumed with reduced EF associated with hypotension and OFELIA. Eventually left [facility] after being recommended ICD placement however subsequently postponed due to OFELIA/CKD 3B. Follows
with tellers supervisor Dr. Dowd. Once arrived home family recommended to come to [facility] for further evaluation. Here received 1 dose of IV Lasix continue to monitor off. Renal function was 2.3 for 2 days improved to 1.8 on the day of
discharge. Evaluated by cardiology recommended to take 20 mg Lasix as needed for weight gain of more than 3 pounds at current weight. Additionally started on hydralazine and Entresto has been discontinued.
Follow-up to Dr. Dowd, who can hopefully facilitate ICD/COMMERCIAL CREDIT HEAD-D implantation
If patient desires to transfer cardiology care, our number is [phone]
Referrals:
Mak Pearson DO [Active, Nephrology] - in two weeks
NONE,* [Family Provider, Internal Medicine]
Geoffrey Gaona MD [Active, Cardiology] - in two weeks
Prescriptions:
New
hydralazine 10 mg tablet
10 mg PO BID Qty: 60 0RF
furosemide [Lasix] 20 mg tablet
20 mg PO DAILY PRN (Reason: Weight gain) Qty: 30 0RF
Rx Instructions:
weight gain over 3 pounds from current weight
Continued
Incruse Ellipta 62.5 mcg/actuation Blister With Device
1 inh INHALATION R DAILY
atorvastatin [Lipitor] 40 mg Tablet
40 mg PO HS
amiodarone 200 mg Tablet
200 mg PO BID
aspirin 81 mg Tablet,Delayed Release (Dr/Ec)
81 mg PO DAILY
calcium carbonate 500 mg calcium (1,250 mg) Tablet
500 mg PO DAILY
levothyroxine [Synthroid] 150 mcg Tablet
150 mcg PO DAILY
metoprolol succinate [Toprol XL] 25 mg Tablet Extended Release 24 Hr
25 mg PO BID
Refresh Optive 0.5-0.9 % Drops
1 drp BOTH EYES Q6HPRN PRN (Reason: dryness)
Xarelto 15 mg Tablet
15 mg PO DAILY
polyvinyl alcohol 1.4 % Drops
2 drp OPHTHALMIC (EYE) TID PRN (Reason: Reduction Of Transepidermal Water Loss)
Discontinued
sacubitril-valsartan [Entresto] 24-26 mg Tablet
1 tab PO BID
Discharge Orders:
Discharge Patient (As Directed); Ordered 11/27/24
Ordered By: Richard Mauricio
Discharge Date and Time
Print Language: GREENLANDIC
[2024-11-27 14:35] VITALS: BP 112/75
== END 2024-11-27 14:48 | disposition home or self-care (01) | DRG 682 ==
LOC: 3 WEST ACU 22:06
PROVIDERS: Emergency Medicine; ADMITTING PHYSICIAN Hospitalist; ATTENDING PHYSICIAN Hospitalist; CONSULT PHYSICIAN Internal Medicine Nephrology; EMERGENCY PHYSICIAN Student in an Organized Health Care Education/Training Program; OTHER PHYSICIAN Internal Medicine Cardiovascular Disease
DX: N17.9 Acute kidney failure, unspecified (principal); I50.23 Acute on chronic systolic (congestive) heart failure; I13.0 Hypertensive heart and chronic kidney disease with heart failure and stage 1 through stage 4 chronic kidney disease, or unspecified chronic kidney disease; I5A Non-ischemic myocardial injury (non-traumatic); N18.32 Chronic kidney disease, stage 3b; I25.10 Atherosclerotic heart disease of native coronary artery without angina pectoris; Z95.1 Presence of aortocoronary bypass graft; J44.9 Chronic obstructive pulmonary disease, unspecified; Z86.711 Personal history of pulmonary embolism; Z95.3 Presence of xenogenic heart valve; I27.20 Pulmonary hypertension, unspecified; I34.0 Nonrheumatic mitral (valve) insufficiency; I48.0 Paroxysmal atrial fibrillation; I25.5 Ischemic cardiomyopathy; Z66 Do not resuscitate; I44.7 Left bundle-branch block, unspecified; Z85.21 Personal history of malignant neoplasm of larynx; I44.0 Atrioventricular block, first degree; D64.9 Anemia, unspecified; E78.00 Pure hypercholesterolemia, unspecified; E89.0 Postprocedural hypothyroidism; F17.210 Nicotine dependence, cigarettes, uncomplicated; Z79.01 Long term (current) use of anticoagulants; Z79.82 Long term (current) use of aspirin; Z79.890 Hormone replacement therapy; Z79.899 Other long term (current) drug therapy; Z85.01 Personal history of malignant neoplasm of esophagus; Z95.810 Presence of automatic (implantable) cardiac defibrillator
CPT/HCPCS: 71046; 80048; 80053; 83880; 84484; 85025; 85027; 87070; 87147; 93005; 93306; 94640; 96374; 99285

== ENCOUNTER 2024-12-06 02:34 | Inpatient (IN) | payer OTHER, SELFPAY ==
[2024-12-05 20:35] VITALS: BP 100/61
[2024-12-05 21:30] LABS: Hematocrit 36.9 % (37.0-47.0); Hemoglobin 11.8 g/dL (12.0-16.0); Mean Corp Hgb Conc. 32.0 g/dL (33.0-37.0); Mean Corpuscular Volume 92.3 fL (81.0-99.0); Nucleated Red Blood Cells % 2.2 %; Platelet Count 265 10^3/uL (130-400); Red Cell Dist. Width 21.0 % (11.5-14.5)
[2024-12-05 21:45] VITALS: BMI 26.6
[2024-12-05 21:45] LABS: ALT (SGPT) 38 U/L (0-35); AST (SGOT) 31 U/L (14-36); Albumin 4.3 g/dl (3.5-5.0); Alkaline Phosphatase 155 U/L (38-126); Blood Urea Nitrogen 108 mg/dl (7-17); Calcium 6.8 mg/dl (8.4-10.2); Carbon Dioxide 19 mmol/L (22-30); Chloride 108 mmol/L (98-107); Glucose 85 mg/dl (70-99); Potassium 5.9 mmol/L (3.5-5.1); Sodium 141 mmol/L (135-145); Total Protein 7.4 g/dl (6.3-8.2); eGFR 11.62
--- NOTE | 2024-12-05 21:46 | EDRN ---
Pt says she is here because her son in law made her come to the ED. Pt says she is always sob and varies day to day. Pt adds her heart rate 'is off.' Pt was in [facility] ED last night for same complaint. Pt says 'they did nothing' however when
prompted blood work was done, xray 'and they gave me an inhaler.' Pt says she was told last night she was in heart failure and one week prior she was told she may need to go on dialysis. [facility] wanted to admit pt last night but pt would not
stay. No cp, abd pain, n/v/d/c, urinary symptoms, fever/cough, dizziness. Pt is always fatigued.
[2024-12-05 21:51] VITALS: BP 97/71
[2024-12-05 22:22] VITALS: BP 101/69
--- NOTE | 2024-12-05 22:39 | ED.GENMED ---
History of Present Illness
<Ting Carpio PA-C - Last Filed: 12/06/24 12:56>
General
Chief Complaint: Breathing Problem
Source: patient and family
Exam Limitations: none
Time Seen by Provider: 12/05/24 21:37
Nursing documentation reviewed up to this point in time: agreed with
History of Present Illness
History of Present Illness:
Patient is a 79-year-old female with history CHF, atrial fibrillation on Xarelto, CAD, COPD who presents to the emergency department with worsening shortness of breath. Patient states that over the past few days she is been experiencing significant
dyspnea with exertion as well as noticing swelling in her lower legs. She states that she is unable to simply walk to the bathroom without becoming extremely short of breath. She has not been eating/drinking much at home. Patient denies any chest
pain, fevers, or productive cough. She denies any abdominal pain, nausea or vomiting.
Patient was seen at [facility] emergency department yesterday where admission was recommended for CHF exacerbation however patient AGAINST MEDICAL ADVICE in order to present to [place] for further care.
She believes that she was recently prescribed Lasix to be taken 'as needed'.
Review of Systems
<Ting Carpio PA-C - Last Filed: 12/06/24 12:56>
Review of Systems
Allergies reviewed?: Yes
All Other Systems: ROS reviewed and negative except as documented in HPI and ROS
Phy Exam
<Ting Carpio PA-C - Last Filed: 12/06/24 12:56>
Physical Exam
Physical Exam:
Vitals: BP soft, tachypneic, otherwise vital stable. Afebrile
General: Patient is mildly tachypneic
Skin: Warm and dry, no rashes or lesions
Head: Normocephalic, atraumatic
Eyes: Sclera nonicteric.
Throat: Protecting airway
Neck: Normal ROM, no cervical spine tenderness, no meningismus
Cardiac: Regular rate and rhythm, no murmurs.
Pulm: Mild tachypnea. O2 saturation 95 on room air. Fine crackles at bilateral bases.
.
Abdomen: Abdomen soft and nontender.
Extremities: 1+ pitting edema bilateral lower extremities up to ankle. Negative Homans' sign bilaterally
Neuro: AAOx3. Grossly intact.
Psychiatric: Normal affect.
Scores
<Ting Carpio PA-C - Last Filed: 12/06/24 12:56>
Heart Failure Risk
Heart Failure Risk Score: Not Applicable
Course
<Ting Carpio PA-C - Last Filed: 12/06/24 12:56>
Orders/Labs/Results
Orders:
Orders
12/05/24 20:41
Electrocardiogram (*1) Urgent
Reason for Study: Other
Other Reason for Exam: Respiratory Distress
Cardiac Monitoring- Treatment ONCE
EKG- Treatment ONCE
IV Insert/Care/Rem.- Treatment PRN
CR Chest - 2 Views Urgent
Comment:
Reason For Exam: respiratory distress
O2 Therapy [RESP] Urgent
Titrate/Wean O2 to maintain O2 sat greater than (%): 93
Special Instructions: TO MAINTAIN CONTINUOUS O2 SATS >/= 93%
Pulse Ox/cont/shift [RESP] Urgent
Quantity: 1
Special Instructions: continuous pulse ox
12/05/24 21:20
Complete Blood Count/With Diff Urgent
Comprehensive Metabolic Panel Urgent
NT-proBNP Urgent
Troponin I Urgent
12/05/24 23:37
Calcium Gluconate 1 gram/100mL [Calcium Gluconate] 1 gram in 100 ml IV ONCE
12/06/24 02:05
Admit/Transfer Patient As Directed
Co-Sign Provider:
Level of Care: Inpatient admission
Assign to:: Telemetry
Physician / Group: Reece
Diagnosis: CHF, OFELIA
Reason for Telemetry: Acute Heart Failure
Date to Stop Telemetry: 12/09/24
Time to Stop Telemetry: 11:00
Reason for Hospitalization: CHF, OFELIA
Expected length of stay greater than two midnights?: Yes
ELOS- Estimated Length of Stay in days: 3
I certify the patient meets the requirements for IP care: Yes
PRN Pain Medication Management As Directed
May give lesser potent ordered pain med per pt: Yes
preference::
Protocol:: Medication orders for pain may be administered in a
manner that supports deferring to patient preference
when the pt is:
- Requesting an ordered lesser potent pain medication.
Least to most potent pain medications are defined
as: acetaminophen < NSAID < tramadol < opioids
(morphine, oxycodone, hydromorphone).
- Requesting a lesser dose of the same medication IF
ORDERED.
- Requesting a less intrusive route of administration
if both routes are prescribed by the provider (PO <
IV).
12/06/24 02:08
Code Status As Directed
Resuscitation Status: Do not resuscitate
Reached after discussion with pt or family/Healthcare POA: Yes
12/06/24 02:10
DNR Bracelet Application ONCE
12/06/24 03:06
Acetaminophen [Tylenol] 650 mg PO Q4HPRN PRN
12/06/24 03:06
CARDIOLOGY CONSULT Routine
Consulting Provider: Bradley Mims
Was physician already notified: No
Reason for consult: CHF, OFELIA
Consult Notification Routine
Specialty to Notify: Cardiology
Consult Notification Routine
Specialty to Notify: Nephrology
NEPHROLOGY CONSULT Routine
Consulting Provider: Chichi Howard
Was physician already notified: No
Reason for consult: CHF, OFELIA
Activity As Directed
Activity Level: Ambulate
With Assistance
EKG with chest pain [ECG as needed] As Directed
ECG as needed for:: Chest Pain
I/O [Intake/ Output] As Directed
Frequency: Per unit guidelines
Pneumatic Compression Sleeves As Directed
Type: Knee high
Vital Signs As Directed
Frequency: Per unit guidelines
Weight As Directed
Frequency: Daily
Oxygen Therapy [O2 Therapy] [RESP] Routine
Titrate/Wean O2 to maintain O2 sat greater than (%): 94
PT Consult [Pt Eval And Treat] Routine
Activity Level: Ambulate
With Assistance
DX Deep Vein Thrombosis Video Routine
12/06/24 03:10
Artificial Tears (Pf) [Refresh Eye Drops (Pf)] 1 drops BOTH EYES Q6HPRN PRN
12/06/24 04:28
Troponin I Q6H
12/06/24 06:00
EKG [Electrocardiogram (*1)] IN AM
Reason for Study: Chest Pain
Regular
At Your Request: Full Participation
Fluid Restriction: 1440 mL/day (48 oz)
Amiodarone [Pacerone] 200 mg PO BID
Levothyroxine [Synthroid] 150 mcg PO DAILY @ 0600
12/06/24 08:00
Aspirin Low Dose EC [Aspir Low (Enteric Coated)] 81 mg PO DAILY
Calcium Carbonate [Oscal Shen 500] 500 mg PO BID
Heparin 5,000 units SC Q12
Metoprolol Xl [Toprol Xl] 25 mg PO BID
Tiotropium Ring[place] 2.5 Mcg [Spiriva Respimat 2.5 Mcg] 2 puff INH R DAILY
12/06/24 08:46
Basic Metabolic Panel IN AM
Complete Blood Count/No Diff IN AM
Magnesium IN AM
Phosphorus IN AM
Troponin I Q6H
12/06/24 15:06
Troponin I Q6H
12/06/24 22:00
Atorvastatin [Lipitor] 40 mg PO HS
12/09/24 11:00
DC Protocol for Telemetry ONCE
Abnormal Lab Results
12/05/24
21:20
RBC 4.00 L 10^6/uL
(4.20-5.40)
Hgb 11.8 L g/dL
(12.0-16.0)
Hct 36.9 L %
(37.0-47.0)
MCHC 32.0 L g/dL
(33.0-37.0)
RDW 21.0 H %
(11.5-14.5)
Abs Immat Gran (auto) 0.1 H 10^3/uL
(0-0.05)
Absolute Lymphs (auto) 0.3 L 10^3/uL
(1.2-3.4)
Immature Gran % 0.7 H %
(0-0.5)
Neutrophils % 88.5 H %
(42.2-75.2)
Lymphocytes % 4.4 L %
(20.5-51.1)
Potassium 5.9 H mmol/L
(3.5-5.1)
Chloride 108 H mmol/L
(98-107)
Carbon Dioxide 19 L mmol/L
(22-30)
BUN 108 H* mg/dl
(7-17)
Creatinine 3.8 H mg/dL
(0.6-1.0)
Calcium 6.8 L* mg/dl
(8.4-10.2)
Total Bilirubin 1.8 H mg/dl
(0.2-1.3)
ALT 38 H U/L
(0-35)
Alkaline Phosphatase 155 H U/L
(38-126)
Troponin I 0.050 H* ng/ml
12/05/24 21:20
12/05/24 21:20
Vital Signs
Initial and Last Documented VS:
Initial Vital Signs
Temp Pulse Resp BP Pulse Ox
97.5 F 85 26 100/61 98
12/05/24 20:35 12/05/24 20:35 12/05/24 20:35 12/05/24 20:35 12/05/24 20:35
Last Documented Vital Signs
Temp Pulse Resp BP Pulse Ox
97.4 F 97 20 127/87 97
12/06/24 11:15 12/06/24 11:15 12/06/24 11:15 12/06/24 11:15 12/06/24 11:15
<Amrita Oh, DO - Last Filed: >
Orders/Labs/Results
Orders:
Orders
12/05/24 20:41
Electrocardiogram (*1) Urgent
Reason for Study: Other
Other Reason for Exam: Respiratory Distress
Cardiac Monitoring- Treatment ONCE
EKG- Treatment ONCE
IV Insert/Care/Rem.- Treatment PRN
CR Chest - 2 Views Urgent
Comment:
Reason For Exam: respiratory distress
O2 Therapy [RESP] Urgent
Titrate/Wean O2 to maintain O2 sat greater than (%): 93
Special Instructions: TO MAINTAIN CONTINUOUS O2 SATS >/= 93%
Pulse Ox/cont/shift [RESP] Urgent
Quantity: 1
Special Instructions: continuous pulse ox
12/05/24 21:20
Complete Blood Count/With Diff Urgent
Comprehensive Metabolic Panel Urgent
NT-proBNP Urgent
Troponin I Urgent
12/05/24 23:37
Calcium Gluconate 1 gram/100mL [Calcium Gluconate] 1 gram in 100 ml IV ONCE
12/06/24 02:05
Admit/Transfer Patient As Directed
Co-Sign Provider:
Level of Care: Inpatient admission
Assign to:: Telemetry
Physician / Group: Reece
Diagnosis: CHF, OFELIA
Reason for Telemetry: Acute Heart Failure
Date to Stop Telemetry: 12/09/24
Time to Stop Telemetry: 11:00
Reason for Hospitalization: CHF, OFELIA
Expected length of stay greater than two midnights?: Yes
ELOS- Estimated Length of Stay in days: 3
I certify the patient meets the requirements for IP care: Yes
PRN Pain Medication Management As Directed
May give lesser potent ordered pain med per pt: Yes
preference::
Protocol:: Medication orders for pain may be administered in a
manner that supports deferring to patient preference
when the pt is:
- Requesting an ordered lesser potent pain medication.
Least to most potent pain medications are defined
as: acetaminophen < NSAID < tramadol < opioids
(morphine, oxycodone, hydromorphone).
- Requesting a lesser dose of the same medication IF
ORDERED.
- Requesting a less intrusive route of administration
if both routes are prescribed by the provider (PO <
IV).
12/06/24 02:08
Code Status As Directed
Resuscitation Status: Do not resuscitate
Reached after discussion with pt or family/Healthcare POA: Yes
12/06/24 02:10
DNR Bracelet Application ONCE
12/06/24 03:06
Acetaminophen [Tylenol] 650 mg PO Q4HPRN PRN
12/06/24 03:06
CARDIOLOGY CONSULT Routine
Consulting Provider: Bradley Mims
Was physician already notified: No
Reason for consult: CHF, OFELIA
Consult Notification Routine
Specialty to Notify: Cardiology
Consult Notification Routine
Specialty to Notify: Nephrology
NEPHROLOGY CONSULT Routine
Consulting Provider: Chichi Howard
Was physician already notified: No
Reason for consult: CHF, OFELIA
Activity As Directed
Activity Level: Ambulate
With Assistance
EKG with chest pain [ECG as needed] As Directed
ECG as needed for:: Chest Pain
I/O [Intake/ Output] As Directed
Frequency: Per unit guidelines
Pneumatic Compression Sleeves As Directed
Type: Knee high
Vital Signs As Directed
Frequency: Per unit guidelines
Weight As Directed
Frequency: Daily
Oxygen Therapy [O2 Therapy] [RESP] Routine
Titrate/Wean O2 to maintain O2 sat greater than (%): 94
PT Consult [Pt Eval And Treat] Routine
Activity Level: Ambulate
With Assistance
DX Deep Vein Thrombosis Video Routine
12/06/24 03:10
Artificial Tears (Pf) [Refresh Eye Drops (Pf)] 1 drops BOTH EYES Q6HPRN PRN
12/06/24 04:28
Troponin I Q6H
12/06/24 06:00
EKG [Electrocardiogram (*1)] IN AM
Reason for Study: Chest Pain
Regular
At Your Request: Full Participation
Fluid Restriction: 1440 mL/day (48 oz)
Amiodarone [Pacerone] 200 mg PO BID
Levothyroxine [Synthroid] 150 mcg PO DAILY @ 0600
12/06/24 08:00
Aspirin Low Dose EC [Aspir Low (Enteric Coated)] 81 mg PO DAILY
Calcium Carbonate [Oscal Shen 500] 500 mg PO BID
Heparin 5,000 units SC Q12
Metoprolol Xl [Toprol Xl] 25 mg PO BID
Tiotropium Ringling 2.5 Mcg [Spiriva Respimat 2.5 Mcg] 2 puff INH R DAILY
12/06/24 08:46
Basic Metabolic Panel IN AM
Complete Blood Count/No Diff IN AM
Magnesium IN AM
Phosphorus IN AM
Troponin I Q6H
12/06/24 15:06
Troponin I Q6H
12/06/24 22:00
Atorvastatin [Lipitor] 40 mg PO HS
12/09/24 11:00
DC Protocol for Telemetry ONCE
Abnormal Lab Results
12/05/24
21:20
RBC 4.00 L 10^6/uL
(4.20-5.40)
Hgb 11.8 L g/dL
(12.0-16.0)
Hct 36.9 L %
(37.0-47.0)
MCHC 32.0 L g/dL
(33.0-37.0)
RDW 21.0 H %
(11.5-14.5)
Abs Immat Gran (auto) 0.1 H 10^3/uL
(0-0.05)
Absolute Lymphs (auto) 0.3 L 10^3/uL
(1.2-3.4)
Immature Gran % 0.7 H %
(0-0.5)
Neutrophils % 88.5 H %
(42.2-75.2)
Lymphocytes % 4.4 L %
(20.5-51.1)
Potassium 5.9 H mmol/L
(3.5-5.1)
Chloride 108 H mmol/L
(98-107)
Carbon Dioxide 19 L mmol/L
(22-30)
BUN 108 H* mg/dl
(7-17)
Creatinine 3.8 H mg/dL
(0.6-1.0)
Calcium 6.8 L* mg/dl
(8.4-10.2)
Total Bilirubin 1.8 H mg/dl
(0.2-1.3)
ALT 38 H U/L
(0-35)
Alkaline Phosphatase 155 H U/L
(38-126)
Troponin I 0.050 H* ng/ml
12/05/24 21:20
12/05/24 21:20
Vital Signs
Initial and Last Documented VS:
Initial Vital Signs
Temp Pulse Resp BP Pulse Ox
97.5 F 85 26 100/61 98
12/05/24 20:35 12/05/24 20:35 12/05/24 20:35 12/05/24 20:35 12/05/24 20:35
Last Documented Vital Signs
Temp Pulse Resp BP Pulse Ox
97.4 F 97 20 127/87 97
12/06/24 11:15 12/06/24 11:15 12/06/24 11:15 12/06/24 11:15 12/06/24 11:15
<Ting Carpio PA-C - Last Filed: 12/06/24 12:56>
MDM/Problems Addressed
Differential Diagnosis Includes:
Not limited to: Acute CHF exacerbation, acute coronary syndrome, COPD exacerbation, pneumonia, bronchitis, pleural effusion, etc.
MDM/Problems Addressed:
79 year-old female with progressively worsening shortness of breath, and lower extremity swelling over the past few days. Recent admission for CHF exacerbation. No associated fever, chest pain, productive cough. Vitals and physical exam as above.
Differential broad. Clinical picture consistent with likely CHF exacerbation. Other consideration should be COPD exacerbation, acute coronary syndrome. Lower suspicion for infection process today. Patient is anticoagulated on Xarelto and compliant
with medication making pulmonary embolism much less likely.
ED plan: labs, troponin, pro- BNP. Will check chest x-ray and reassess.
Update: labs reviewed. CBC unremarkable. Chemistry with multiple electrolyte abnormalities, including hyperkalemia as well as hypocalcemia. Acute on chronic renal insufficiency noted with creatinine of 3.8 elevated from 1.8 upon discharge. Troponin
elevated to 0.05 which is stable and I suspect secondary to demand ischemia. Pro-bnp >27,000.
Chest x-ray show evidence of cardiomegaly otherwise it appears stable.
Clinical picture most consistent with acute on chronic CHF exacerbation as well as acute on chronic renal failure. Patient�s blood pressure is soft and given significant renal insufficiency � will hold diuretic/lasix for now. Patient may require
dialysis. Patient given 1gm calcium gluconate. Patient accepted to hospitalist service in stable condition for continued management.
Chronic conditions affecting care:
Atrial fibrillation on Xarelto, congestive heart failure, CAD
Acute Exacerbation and/or Progression of Chronic Illness:
Acute CHF exacerbation
<Ting Carpio PA-C - Last Filed: 12/06/24 12:56>
*Radiology
Radiology exam reviewed: preliminary read by ED provider
*Pulse Oximetry
Patient hypoxic: no
*EKG
Interpreted by ED Provider?: Yes
EKG Intrepretation Date: 12/05/24
Interpretation: abnormal
Comparison EKG: changes noted
Heart Rate: 80
Rate: normal
Rhythm: a-fib
[place]: normal axis
Interval: long QT
QRS Pattern: left bundle branch block
Ischemia: no ischemia
*Debt Counselor Interpretation
Rate: normal
Interpretation: normal
Heart Rate: 86
Rhythm: sinus
*Critical Care Note
Total Time (30-74mins, 75-104mins- exclusive of procedures): Not Applicable
Data Reviewed
Review of Other/Old Records Reveals: Discharge Summary (Discharge summary from 11/27/2024)
<Amrita Oh DO - Last Filed: >
*Pulse Oximetry
SaO2: 97
Oxygen Mode of Delivery: Room air
<Ting Carpio PA-C - Last Filed: 12/06/24 12:56>
Patient Management
Discussion with other providers: Hospitalist
Escalation/DeEscalation of care consider admission/obs:
Admit indicated for acute on chronic CHF and acute on chronic renal insufficiency
ED Attending Note
<Amrita Oh DO - Last Filed: >
-
Portions of this chart may have been created with voice recognition software.� Occasional wrong word or��sound alike� substitutions may have occurred due to the inherent limitations of voice recognition software.
Discharge Plan
Departure
Patient Disposition: Admit
Date of Disposition: 12/05/24
Time of Disposition: 23:39
Presentation/result/management discussed w/ accepting MD/DO: Hospitalist
Discharge Problem:
Acute exacerbation of CHF (congestive heart failure), Acute renal failure, Hypocalcemia
Interventions
Interventions:
*Risk Screen - Suicide Last Done: 12/06/24 03:27
*General Assessment Last Done: 12/05/24 20:35
*Neglect/Abuse Screening Last Done: 12/05/24 20:35
*ED- Fall Risk Assessment Last Done: 12/05/24 20:35
*ED COVID-19 Vaccine History Last Done: 12/06/24 03:27
*Nursing Disposition Last Done: 12/06/24 02:47
ED- Cardiac Assessment Last Done: 12/05/24 21:52
ED- Neurological Assessment Last Done: 12/05/24 21:52
ED- Pulmonary Assessment Last Done: 12/05/24 21:52
Discharge Date and Time
Discharge Date/Time: 12/06/24 02:47
[2024-12-05 23:00] VITALS: BP 91/71
[2024-12-05 23:05] LABS: Troponin I 0.050 ng/ml
[2024-12-05] MEDS: CALCIUM GLUCONATE 100 IV (23:58)
[2024-12-06] VITALS (9 sets, daily range): BP systolic 94–127; BP diastolic 65–87; BMI 26.6
--- NOTE | 2024-12-06 02:11 | HPS.HSE ---
Family Physician
-
Family Physician: * NONE
Chief Complaint
-
SOB / Fatigue
History of Present Illness
Patient is a 79y F with PMH significant for ASCVD, ischemic cardiomyopathy, HFrEF and CKD III who presents to ED complaining of SOB and fatigue. Patient was admitted to 11/25 - 11/27 for CHF. She received a brief course of IV Lasix and was
discharged with instructions to take Lasix PRN for weight gain and to discontinue her Entresto. She did neither of those things. Patient is typically followed by Dr. Dowd ([facility]). She has been recommended ICD placement
but this was initially postponed due to renal impairment and patient later signed out AMA.
Patient underwent CABG and BioMVR about 8 months ago and notes that she was doing well until about 4 weeks ago.
Today patient complains of worsening SOB - mostly with exertion or with lying flat. She has no chest pain, cough, fevers / chills. There is no significant LE swelling.
Patient also admits that she started smoking again after being told she had 'heart failure' because she was 'upset'.
She has been using an albuterol rescue inhaler at home 'all of the time' due to her feelings of dyspnea.
Medical History
Past Medical History
Past Medical History: Reports Other (CAD status post CABG 8 months ago, paroxysmal atrial fibrillation on Xarelto, CKD 3B, ischemic cardiomyopathy, COPD, pulmonary hypertension, pulmonary embolism, severe mitral valve regurgitation status post
replacement with tissue graft, thyroid resection with hypothyroidism)
Past Surgical History: Reports Other (CABG / BioMVR, Thyroidectomy, esophageal cancer s/p resection, right carpal tunnel repair, tracheostomy,)
Social History
Tobacco: Smoker (Current every day smoker.)
Alcohol: None
Drug: None
Family History
Family History: Not pertinent
Allergies / Home Medications
Allergies reflects when Allergies were last updated in [employer].
Home Medications with original date entered in [employer]
Allergy/Medication List:
Allergies
Allergy/AdvReac Type Severity Reaction Status Date / Time
levothyroxine Allergy lethargic Verified 12/05/24 22:07
Home Medications
amiodarone 200 mg tablet 200 mg PO BID Arrhythmia 11/25/24
aspirin 81 mg tablet,delayed release 81 mg PO DAILY Blood Clot Prevention/Tx 11/25/24
atorvastatin 40 mg tablet (Lipitor) 40 mg PO HS High Cholesterol 11/25/24
calcium carbonate 500 mg PO DAILY Gastrointestinal Issue 11/25/24
carboxymethylcellulose 0.5 %-glycerin 0.9 % eye drops (Refresh Optive) 1 drp BOTH EYES Q6HPRN PRN dryness 11/25/24
metoprolol succinate 25 mg tablet,extended release 24 hr (Toprol XL) 25 mg PO BID Heart Failure 11/25/24
rivaroxaban 15 mg tablet (Xarelto) 15 mg PO DAILY Blood Clot Prevention/Tx 11/25/24
umeclidinium 62.5 mcg/actuation blister powder for inhalation (Incruse Ellipta) 1 inh inhalation R DAILY Lung/Breathing Issues 11/25/24
levothyroxine 150 mcg tablet (Synthroid) 150 mcg PO DAILY 12/05/24
sacubitril 24 mg-valsartan 26 mg tablet (Entresto) 1 tab PO BID 12/05/24
Review of Systems
-
History Source: Patient
A 12 point ROS was completed and negative except as noted: Yes
Constitutional: Reports Fatigue; Denies Fever or Chills
EENT: Reports Other (Dry mouth.)
Respiratory: Reports Trouble Breathing; Denies Cough
Cardiac: Denies Chest Pain or Palpitations
Abdomen/GI: Reports Anorexia; Denies Abdominal Pain, Nausea, Vomiting or Diarrhea
: Denies Dysuria, Frequency or Flank Pain
Musculoskeletal: Denies Joint Pain or Edema
Neurological: Denies Dizzy or Headache
Psych: Denies Depression or Anxiety
Physical Exam
Vital Signs
Vital Signs
Temp Pulse Resp BP Pulse Ox
97.5 F 93 16 113/74 96
12/05/24 20:35 12/06/24 01:01 12/06/24 01:01 12/06/24 01:01 12/06/24 01:00
Physical Exam
General: Other (79y F in no acute distress. Sleeping comfortably upon my arrival. Becomes somewhat tachypneic after waking.)
HEENT: Other (Dry MM. Dry lips. No HJR.)
Respiratory: Clear; No Wheezes, Rales or Rhonchi
Cardiac: S1/S2 and Irregular Rhythm; No Murmur
GI: Soft, Non Tender, Non Distended and Normal Bowel Sounds
Musculoskeletal: No Clubbing, No Cyanosis and No Edema
Neuro: AO x 3
Laboratory Results
-
12/05/24 21:20
12/05/24 21:20
Laboratory Results
Total Bilirubin 1.8 mg/dl (0.2-1.3) H 12/05/24 21:20
AST 31 U/L (14-36) 12/05/24 21:20
ALT 38 U/L (0-35) H 12/05/24 21:20
Alkaline Phosphatase 155 U/L (38-126) H 12/05/24 21:20
Troponin I 0.050 ng/ml H* 12/05/24 21:20
Impression/Plan
-
A/P: Patient is a 79y F with PMH significant for ASCVD, ischemic cardiomyopathy, CKD and COPD who presents to ED complaining of SOB and fatigue.
OFELIA on CKD III
Metabolic Acidosis
Mild Hyperkalemia
- Admit for further evaluation and treatment.
- ? cardiorenal syndrome with ischemic cardiomyopathy + atrial fibrillation and relatively low BPs.
- Would hold Entresto, which patient was instructed to do after her prior hospitalization.
- Hold on any aggressive diuresis for now as she does not appear grossly volume overloaded.
- Nephrology evaluation for additional recommendations.
- Dialysis has apparently been discussed - briefly - in the past and patient is undecided on her wishes in that regard.
- Follow for improvement in renal function / lytes / etc.
Ischemic Cardiomyopathy
Chronic HFrEF
- Echo during recent visit here showed LVEF = 20-25%.
- AICD has been recommended by her Electrical Hardware Engineer at [facility].
- Diuresis limited by hypotension - though she does not appear grossly volume overloaded at present.
- BNP unreliable given renal impairment.
- Cardiology evaluation for additional recommendations.
- Hold on aggressive diuresis for now as noted above.
Paroxysmal Atrial Fibrillation
- In A-Fib at present with rates < 100 bpm.
- Hold Xarelto acutely given renal impairment.
ASCVD
- Continue metoprolol, ASA, statin, etc.
COPD without Acute Exacerbation
- Patient reports excessive use of albuterol MDI with recent symptoms of dyspnea.
- Dyspnea likely more a function of CHF / cardiomyopathy and albuterol apt to be detrimental more than helpful in that scenario.
- No wheezing on today's exam.
- Nebs PRN only. Continue Incruse.
Hypothyroidism
- Continue current T4 replacement.
- Update TFTs.
DVT Prophylaxis: Subcut heparin for now.
Code Status: DNR
--- NOTE | 2024-12-06 03:30 | PTCARENOTE ---
Received patient from ED. Patient was pulled directly to the bed from the stretcher. AAOx3, assessed patient, VSS. call reyes in reach. Oriented to the unit. Bed alarm placed for safety.
[2024-12-06 05:23] LABS: Troponin I 0.045 ng/ml
--- NOTE | 2024-12-06 05:35 | PTCARENOTE ---
Troponin of 0.045. Patient c/o chest palpitations 'but not pain'. On monitor she looks like NSR. Advised covering provider. Will get EKG now.
[2024-12-06] MEDS: PACERONE 200 MG PO ×2 (06:04→20:46)
--- NOTE | 2024-12-06 06:06 | PTCARENOTE ---
Gave 8am Amiodarone now per covering provider.
[2024-12-06] MEDS: SPIRIVA RESPIMAT 2.5 MCG 2 PUFF INH (07:49)
[2024-12-06 09:05] LABS: Hematocrit 34.4 % (37.0-47.0); Hemoglobin 11.3 g/dL (12.0-16.0); Mean Corp Hgb Conc. 32.8 g/dL (33.0-37.0); Mean Corpuscular Volume 91.2 fL (81.0-99.0); Platelet Count 263 10^3/uL (130-400); Red Cell Dist. Width 20.4 % (11.5-14.5)
[2024-12-06] MEDS: HEPARIN 5000 UNITS SC (09:07)
[2024-12-06] MEDS: TOPROL XL 25 MG PO ×2 (09:07→20:47)
[2024-12-06] MEDS: ASPIR LOW (ENTERIC COATED) 81 MG PO (09:07)
[2024-12-06] MEDS: OSCAL CAL 500 500 MG PO (09:07)
[2024-12-06] MEDS: SYNTHROID PO (09:08)
[2024-12-06 09:27] LABS: Troponin I 0.054 ng/ml
--- NOTE | 2024-12-06 09:57 | W.PN.HOSP.TC ---
Addendum entered and electronically signed by Alda Cortez MD 12/06/24 13:18:
spoke to pharmacy again who re-calculated CrCl, recommending Eliquis 2.5mg PO BID - ordered
Addendum entered and electronically signed by Alda Cortez MD 12/06/24 12:55:
Discussed Xarelto dosing with Pharmacy. CrCl > 15 so OK to continue however needs to be assessed daily as Xarelto not recommended for CrCl < 15. Eliquis preferred, but dose wouldn't be adjusted based on weight and age.
Original Note:
Today's Communication/Plan
-
see plan
Assessment / Plan
Assessment / Plan
Ms. Daija Burrell is a 79-year-old woman with history of CAD status post CABG 8 months ago, hx AVR and MVR, paroxysmal atrial fibrillation on Xarelto, CKD 3B, ischemic cardiomyopathy, COPD, pulmonary hypertension pulmonary embolism,recent
admission for OFELIA and heart failure (told to stop Entresto and take Lasix as needed) presents to the ER with shortness of breath.
OFELIA on CKD III
Metabolic Acidosis
Mild Hyperkalemia
- Admitted for further evaluation and treatment.
- stop Entreso (patient continued to take after last admission and reports taking Lasix every other day
- IV Lasix per Nephrology
- Dialysis has apparently been discussed - briefly - in the past and patient is undecided on her wishes in that regard. She does not wish to talk about it today
Ischemic Cardiomyopathy
Chronic HFrEF
- Echo during recent visit here showed LVEF = 20-25%.
- AICD has been recommended by her Senior Safety Management Consultant at [facility].
- Diuresis limited by hypotension - though she does not appear grossly volume overloaded at present.
- BNP unreliable given renal impairment.
- appreciate Cardiology consult
Paroxysmal Atrial Fibrillation
- In A-Fib at present with rates < 100 bpm.
- Xarelto was held on admission - discussing correct dosing with pharmacy given decline in renal function. Will resume - discussed OK with Cardiology and Nephrology
ASCVD
- Continue metoprolol, ASA, statin, etc.
COPD without Acute Exacerbation
- Patient reports excessive use of albuterol MDI with recent symptoms of dyspnea.
- Dyspnea likely more a function of CHF / cardiomyopathy and albuterol apt to be detrimental more than helpful in that scenario.
- No wheezing on today's exam.
- Nebs PRN only. Continue Incruse.
Hypothyroidism
- Continue current T4 replacement.
- Update TFTs.
DVT Prophylaxis: Subcut heparin for now.
Code Status: DNR
51 minutes spent on patient care
Anticipated Discharge: > 48 hours
Subjective/Interval History
-
Date of Service: December 06, 2024
she denies chest pain
feels mildly short of breath, OK at rest
Objective Data
-
Labs:
Laboratory Results
12/06/24
08:46
WBC 6.0
Hgb 11.3 L
Hct 34.4 L
Plt Count 263
Sodium Pending
Potassium Pending
Chloride Pending
Carbon Dioxide Pending
BUN Pending
Creatinine Pending
Glucose Pending
Calcium Pending
Vital Signs:
Vital Signs
Temp Pulse Resp BP Pulse Ox
97.4 F 80 16 110/77 95
12/06/24 07:05 12/06/24 09:07 12/06/24 07:51 12/06/24 09:07 12/06/24 07:05
I&O
12/05/24 12/06/24 12/07/24
06:59 06:59 06:59
Intake Total 120 / 120
Balance 120 / 120
Review of Systems
-
History Source: Patient
All other systems: Reviewed and negative
Physical Exam
-
General: No Apparent Distress and Comfortable
HEENT: Normocephalic and Atraumatic
Respiratory: Clear to Auscultation; Negative Wheezes or Rales
Cardiac: Regular Rhythm, S1/S2 and Murmur
GI: Soft and Nontender
Musculoskeletal: No Clubbing
Skin: Warm and Dry
Neuro: Awake and AO x 3
Psych: Calm
Data Reviewed
-
Diagnostic Radiology: Report Reviewed by me
Labs: Labs Reviewed by me
[2024-12-06 10:03] LABS: Blood Urea Nitrogen 108 mg/dl (7-17); Calcium 6.8 mg/dl (8.4-10.2); Carbon Dioxide 14 mmol/L (22-30); Chloride 111 mmol/L (98-107); Estimated Creatinine Clearance 12 ml/min; Glucose 81 mg/dl (70-99); Magnesium 2.2 mg/dl (1.6-2.3); Potassium 5.6 mmol/L (3.5-5.1); Sodium 141 mmol/L (135-145); eGFR 12.40
[2024-12-06] MEDS: CALCIUM GLUCONATE 100 IV ×2 (10:35→13:39)
--- NOTE | 2024-12-06 11:08 | CM ---
CM following re: discharge planning.
Reviewed pt's chart, met with pt.
Pt is a 79 year old female, admitted with primary dx of OFELIA on CKD III. Metabolic Acidosis. PMH includes: significant for ASCVD, ischemic cardiomyopathy, HFrEF and CKD III.
Pt reports she lives alone in an apartment 1st floor, no steps, has 3 daughters and pt stated she is expected her daughters will help more than they do. 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 has
shower chair and raised toilet seat. Pt expressed her strong desire to return back home at discharge and she stated she had in the past [facility]. Pt stated her son in law will transport home at discharge.
PCP: pt stated she has an appointment with new PCP on Saturday and pt did not recall the name of her PCP.
Pharmacy: [facility].
D/c plan: per pt's strong request, home with VN and family support. CM will confirm pt's PCP prior to make a referral to [facility]
CM will follow with discharge plan updates as hospitalization progresses
--- NOTE | 2024-12-06 12:02 | CON.CAR ---
Consultation
Consultation Request
Date/Time Consultation Requested: December 06, 2024
Date/Time Consultation Performed: December 06, 2024
Requesting Provider: Hospitalist
Performing Provider: Felicita
Reason for Consultation: CHF and acute renal failure
Medical History
-
Chief Complaint: CHF and acute renal failure
History of Present Illness:
79-year-old female with a history of noncompliance status post CABG and mitral valve surgery at [facility] 8 months ago. She is followed by Dr. 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 She has had planned defibrillator
implantation coming up this month but was canceled due to increased renal insufficiency and she came to [facility] for a second opinion. She was just here on November 27 please see our prior notes. She comes in with mild
volume overload and acute renal failure BUN 116 creatinine 3.8 with an apparent baseline of 1.4-1.6. She has a complex past medical history and she did not follow treatment recommendations at discharge from review of the records. Review of her 3
available ECGs demonstrates atypical atrial flutter with either variable block or regular conduction. She is on chronic oral anticoagulation.
Past Medical History
Past Medical History: Arrhythmias, CAD and Renal Failure
Past Surgical History: Cardiac
Social History
Tobacco: Former Smoker
Alcohol: None
Drug: None
Personal: Other
Living: With Family
Employment: Not Employed
Family History
Family History: Reviewed & Not Pertinent
Allergies / Home Medications
Allergy/AdvReac Type Severity Reaction Status Date / Time
levothyroxine Allergy lethargic Verified 12/05/24 22:07
�Medication �Instructions �Recorded �Confirmed �Type
amiodarone 200 mg tablet 200 mg PO BID Arrhythmia 11/25/24 12/05/24 History
aspirin 81 mg tablet,delayed 81 mg PO DAILY Blood Clot 11/25/24 12/05/24 History
release Prevention/Tx
atorvastatin 40 mg tablet (Lipitor) 40 mg PO HS High Cholesterol 11/25/24 12/05/24 History
calcium carbonate 500 mg PO DAILY Gastrointestinal 11/25/24 12/05/24 History
Issue
carboxymethylcellulose 0.5 1 drp BOTH EYES Q6HPRN PRN dryness 11/25/24 12/05/24 History
%-glycerin 0.9 % eye drops
(Refresh Optive)
metoprolol succinate 25 mg 25 mg PO BID Heart Failure 11/25/24 12/05/24 History
tablet,extended release 24 hr
(Toprol XL)
rivaroxaban 15 mg tablet (Xarelto) 15 mg PO DAILY Blood Clot 11/25/24 12/05/24 History
Prevention/Tx
umeclidinium 62.5 mcg/actuation 1 inh inhalation R DAILY 11/25/24 12/05/24 History
blister powder for inhalation Lung/Breathing Issues
(Incruse Ellipta)
levothyroxine 150 mcg tablet 150 mcg PO DAILY 12/05/24 12/05/24 History
(Synthroid)
sacubitril 24 mg-valsartan 26 mg 1 tab PO BID 12/05/24 12/05/24 History
tablet (Entresto)
Review of Systems
-
All other systems: Negative unless noted
Respiratory: Trouble Breathing
Physical Exam
Vital Signs
Temp Pulse Resp BP Pulse Ox
97.4 F 97 20 127/87 97
12/06/24 11:15 12/06/24 11:15 12/06/24 11:15 12/06/24 11:15 12/06/24 11:15
Lab Results
12/06/24 08:46
12/06/24 08:46
Troponin I 0.054 ng/ml H* 12/06/24 08:46
Ydm-X-Zqkqdugcypz Pept > 14834 pg/ml 12/05/24 21:20
Physical Exam
General: Well Developed and Well Nourished
HEENT: Normocephalic and Anicteric
Respiratory: Crackles
Cardiac: Irregular Rhythm
Breast: Deferred by me
GI: Soft, Non Tender and Non Distended
Musculoskeletal: No Clubbing and No Cyanosis
Skin: Warm and Dry
Neuro: Awake, Alert and Oriented
Hematologic/Lymphatic: No Lymphadenopathy
Psych: Calm
Impression / Plan
-
Primary warehousing technician: Favian Dowd at [facility] [phone]
Impression:
Acute renal failure
Medical noncompliance
Acute on chronic heart failure reduced EF, pro bnp >27,000
Class III heart failure symptoms
Ischemic cardiomyopathy ejection fraction 20 to 25% on guideline based medical therapy November 27, 2024
Intolerant of full guideline based medical therapy due to renal insufficiency
History of coronary artery disease status post CABG 8 months ago
Ischemic cardiomyopathy
Valvular heart disease status post AVR and MVR 8 months ago
Chronic kidney disease stage IIIB
Atypical atrial flutter appears persistent and review of all available ECGs
Left bundle branch block
Hypothyroidism status post thyroid resection
Laryngeal cancer status post resection
Previous cardiovascular studies:
Awaiting records from previous warehousing technician
Echo 11/27/2024: EF 20 to 25%. Mild LVH with dilated left ventricle and global hypokinesis with septal and dyskinesis, mid and apical inferior and apical akinesis. Severe left atrial dilation. Bioprosthetic mitral valve with mean gradient 2 and no
regurgitation. Moderate to severe TR with PAP 29 mmHg
Recommendations:
Difficult situation as her BUN and creatinine are markedly elevated
I wonder whether she is approaching dialysis
Would not offer her BiV ICD implantation during this hospitalization given her constellation of symptoms and myriad of medical problems
As she has established care with Dr. Dowd and they are planning device implantation best to keep her with her outpatient doctors her know her best unless she plans to transfer care
Continue dose adjusted oral anticoagulation if no procedures are planned
Nephrology consultation
She appears euvolemic to mildly hypervolemic with stable weights compared to prior admission
We will follow with you and request old records from her primary warehousing technician
Data Reviewed
-
EKG: Tracing Personally Visualized and interpreted
CT Scan: Image Personally Visualized and interpreted
Medical Tests (Nuc Med, Echo etc): Image Personally Visualized and interpreted
Labs: Labs Reviewed by me
Old Records: Reviewed
--- NOTE | 2024-12-06 12:22 | W.CON.NEPH ---
Consultation
-
Date/Time Consultation Requested: 12/06/24 0306
Date/Time Consultation Performed: 12/06/24 1145
Requesting Provider: Zac Pina
Performing Provider: Chichi Knight
Reason for Consultation: OFELIA with CKD
Medical History
-
Chief Complaint: SOB
History of Present Illness:
79-year-old female past medical history of CAD status post CABG,Bio AVR 8 months ago, paroxysmal atrial fibrillation on Xarelto, CKD 3B, ischemic cardiomyopathy on Entresto, ASA, COPD, pulmonary hypertension pulmonary embolism, aortic valve
replacement, severe mitral valve regurgitation status post replacement with tissue graft, thyroid resection with hypothyroidism, laryngeal cancer status post resection, obesity, presenting with shortness of breath last night. She has been having
shortness of breath for the past few months.
Patient was admitted to 11/25 - 11/27 for CHF, had OFELIA cr peak at 2.3 improved to 1.8, no known baseline. She received a brief course of IV Lasix and was discharged with instructions to take Lasix PRN for weight gain and to discontinue her
Entresto. She did neither of those things. Patient is typically followed by Dr. Dowd ([facility]) has not seen recently. She has been recommended ICD placement but this was initially postponed due to renal impairment and
patient later signed out AMA during one of her admit at [facility] month ago?.
She reports sob was worsening hence presented back to the hospital. She reports did not have lasix with her to take. She morales snot check weights at home, eats foods from out side but not eating very much lately. No change in mild chr LE edema.
continues to smoke 1/2PPD. Lives alone and drives. Uses 2-3 pillows. She has no chest pain, cough, fevers / chills. She has been using an albuterol rescue inhaler at home 'all of the time' due to her feelings of dyspnea. On labs her cr noted at
3.8, k at 5.9, BUN 108, bicarb 19. Repeat this am k 5.6, bicarb 14, cr 3.6, BUN 108. luis alfredo also is low 6.8, had IV calcium rider this am. Bp soft with out hypotension. SHe is currently on RA. CXR noted mild CHF.
Past Medical History
(CAD status post CABG 8 months ago, paroxysmal atrial fibrillation on Xarelto, CKD 3B, ischemic cardiomyopathy, COPD, pulmonary hypertension pulmonary embolism, aortic valve replacement, severe mitral valve regurgitation status post replacement with
tissue graft, thyroid resection with hypothyroidism)
Past Surgical History: Other (CABG / BioMVR, Thyroidectomy, esophageal cancer s/p resection, right carpal tunnel repair, tracheostomy)
Social History
Tobacco: Smoker (0.5ppd)
Alcohol: Occasional
Living: Alone
Family History
Family History: Not Pertinent
Allergies / Home Medications
Allergy/AdvReac Type Severity Reaction Status Date / Time
levothyroxine Allergy lethargic Verified 12/05/24 22:07
�Medication �Instructions �Recorded �Confirmed �Type
amiodarone 200 mg tablet 200 mg PO BID Arrhythmia 11/25/24 12/05/24 History
aspirin 81 mg tablet,delayed 81 mg PO DAILY Blood Clot 11/25/24 12/05/24 History
release Prevention/Tx
atorvastatin 40 mg tablet (Lipitor) 40 mg PO HS High Cholesterol 11/25/24 12/05/24 History
calcium carbonate 500 mg PO DAILY Gastrointestinal 11/25/24 12/05/24 History
Issue
carboxymethylcellulose 0.5 1 drp BOTH EYES Q6HPRN PRN dryness 11/25/24 12/05/24 History
%-glycerin 0.9 % eye drops
(Refresh Optive)
metoprolol succinate 25 mg 25 mg PO BID Heart Failure 11/25/24 12/05/24 History
tablet,extended release 24 hr
(Toprol XL)
rivaroxaban 15 mg tablet (Xarelto) 15 mg PO DAILY Blood Clot 11/25/24 12/05/24 History
Prevention/Tx
umeclidinium 62.5 mcg/actuation 1 inh inhalation R DAILY 11/25/24 12/05/24 History
blister powder for inhalation Lung/Breathing Issues
(Incruse Ellipta)
levothyroxine 150 mcg tablet 150 mcg PO DAILY 12/05/24 12/05/24 History
(Synthroid)
sacubitril 24 mg-valsartan 26 mg 1 tab PO BID 12/05/24 12/05/24 History
tablet (Entresto)
Review of Systems
-
All other systems: Negative unless noted
Physical Exam
Vital Signs
Vital Signs
Temp Pulse Resp BP Pulse Ox
97.4 F 97 20 127/87 97
12/06/24 11:15 12/06/24 11:15 12/06/24 11:15 12/06/24 11:15 12/06/24 11:15
Lab Results
WBC 6.0 10^3/uL (4.8-10.8) 12/06/24 08:46
RBC 3.77 10^6/uL (4.20-5.40) L 12/06/24 08:46
Hgb 11.3 g/dL (12.0-16.0) L 12/06/24 08:46
Hct 34.4 % (37.0-47.0) L 12/06/24 08:46
Plt Count 263 10^3/uL (130-400) 12/06/24 08:46
Sodium 141 mmol/L (135-145) 12/06/24 08:46
Potassium 5.6 mmol/L (3.5-5.1) H 12/06/24 08:46
Chloride 111 mmol/L (98-107) H 12/06/24 08:46
Carbon Dioxide 14 mmol/L (22-30) L* 12/06/24 08:46
BUN 108 mg/dl (7-17) H* 12/06/24 08:46
Creatinine 3.6 mg/dL (0.6-1.0) H 12/06/24 08:46
eGFR 12.40 12/06/24 08:46
Glucose 81 mg/dl (70-99) 12/06/24 08:46
Calcium 6.8 mg/dl (8.4-10.2) L* 12/06/24 08:46
Phosphorus 9.4 mg/dl (2.5-4.5) H 12/06/24 08:46
Zkc-P-Miboprrlmnd Pept > 75614 pg/ml 12/05/24 21:20
Albumin 4.3 g/dl (3.5-5.0) 12/05/24 21:20
Physical Exam
General: Awake, Alert, Oriented, AOx3, No Distress and Nontoxic
HEENT: EOMI, Anicteric, Conjunctivae Clear, Facial Symmetry and Neck Supple
Respiratory: Wheezes, Normal Excursion and Nonlabored Respirations
Cardiac: S1/S2 and Regular Rate/Rhythm
Breast: Deferred by me
Abdomen: Soft, Nontender and Nondistended
Musculoskeletal: Edema (trace)
Skin: No Rash
Neuro: Nonfocal/Grossly Intact
Psych: Insight/judgement good and Appropriate
Data Reviewed
-
Labs: Labs Reviewed by me, Discussed with Nurse and Discussed with Patient
Assessment/Plan
-
Impression:
OFELIA on CKD III-no baseline cr, last jamal 1.8
Metabolic Acidosis-mixed
Mild Hyperkalemia
Ischemic Cardiomyopathy
Chronic HFrEF = 20-25%.
Paroxysmal Atrial Fibrillation
COPD without Acute Exacerbation
CAD status post CABG
Valvular heart disease status post AVR and MVR
Hypothyroidism status post thyroid resection
Laryngeal cancer status post resection
Hyperphosphatemia
Echo:
Echo 11/27/2024: EF 20 to 25%. Mild LVH with dilated left ventricle and global hypokinesis with septal and dyskinesis, mid and apical inferior and apical akinesis. Severe left atrial dilation. Bioprosthetic mitral valve with mean gradient 2 and no
regurgitation. Moderate to severe TR with PAP 29 mmHg
Plan:
A/w sob, after recent d/c on 11/27 for CHF and OFELIA, lasix prn, Entresto held-but cotn on Entresto and did not take lasix, does not check wts.
OFELIA-highly suspect from cardiorenal, need basic urine studies-ordered
follow bladder scan, check renal US
Azotemia-in setting of OFELIA, CHF and pulm HTN
unclear if has uremia or not
hyperkalemia-low k diet (not sure if pt will follow-currently ordered regular diet)and try lasix, prn Lokelma
non gap met acidosis-will sodium bicarb but cautious with CHF
mild hypervolemia-will dose lasix and monitor labs
if renal function worsens likely need RHC
We reviewed about high dialysis risk, pt does not want to think about it now
did not refuse if it is the only option but no decision made
she has no emergent indication of HD today
Hypocalcemia-cont IV luis alfredo rider, check vit D and PTH, increase po luis alfredo to 1gm BID
Currently holding Entresto
BP are soft but no hypotension
phos level significantly high-follow trend, likely add binder
TSH is high, LT4 dosing per primary
It is difficult to speak to her and seem not very compliant with medical recommendations
avoid nephrotoxins, strict FR
d/w nursing
[2024-12-06 12:49] LABS: Glycohemoglobin (HgbA1c) 6.0 % (4.0-5.6)
[2024-12-06] MEDS: LASIX 40 MG IV (13:39)
[2024-12-06 17:01] LABS: Urine Character Clear (Clear)
[2024-12-06 17:04] LABS: Blood Urea Nitrogen 108 mg/dl (7-17); Calcium 7.7 mg/dl (8.4-10.2); Carbon Dioxide 14 mmol/L (22-30); Chloride 111 mmol/L (98-107); Estimated Creatinine Clearance 12 ml/min; Glucose 91 mg/dl (70-99); Potassium 5.4 mmol/L (3.5-5.1); Sodium 140 mmol/L (135-145); eGFR 12.00
[2024-12-06 17:23] LABS: Urine Urothelial Cell 0-2 /LPF (FEW)
[2024-12-06 17:24] LABS: Urine Red Blood Cell 0-2 /HPF (0-2)
[2024-12-06] MEDS: SODIUM BICARBONATE 650 MG PO ×2 (17:37→20:52)
[2024-12-06 18:33] LABS: Troponin I 0.045 ng/ml
[2024-12-06] MEDS: ELIQUIS 2.5 MG PO (20:46)
[2024-12-06] MEDS: OSCAL CAL 500 1000 MG PO (20:46)
[2024-12-06] MEDS: LIPITOR 40 MG PO (20:52)
[2024-12-06] MEDS: LOKELMA 10 GRAM PO (23:04)
[2024-12-07] VITALS (8 sets, daily range): BP systolic 104–128; BP diastolic 63–78; PULSE 85; O2SAT 98; BMI 26.2
[2024-12-07] MEDS: SYNTHROID 150 MCG PO (05:50)
[2024-12-07 07:22] LABS: Calcium 7.7 mg/dl (8.4-10.2)
[2024-12-07 07:24] LABS: Blood Urea Nitrogen 104 mg/dl (7-17); Calcium 7.7 mg/dl (8.4-10.2); Carbon Dioxide 21 mmol/L (22-30); Chloride 108 mmol/L (98-107); Estimated Creatinine Clearance 12 ml/min; Glucose 86 mg/dl (70-99); Potassium 4.8 mmol/L (3.5-5.1); Sodium 142 mmol/L (135-145); eGFR 12.00
[2024-12-07] MEDS: TOPROL XL 25 MG PO ×2 (08:10→20:23)
[2024-12-07] MEDS: OSCAL CAL 500 1000 MG PO ×2 (08:10→20:23)
[2024-12-07] MEDS: SODIUM BICARBONATE 650 MG PO ×3 (08:11→21:14)
[2024-12-07] MEDS: PACERONE 200 MG PO ×2 (08:11→20:23)
[2024-12-07] MEDS: ELIQUIS 2.5 MG PO ×2 (08:11→20:22)
[2024-12-07] MEDS: ASPIR LOW (ENTERIC COATED) 81 MG PO (08:11)
[2024-12-07] MEDS: PROTONIX 40 MG PO (08:11)
[2024-12-07] MEDS: SPIRIVA RESPIMAT 2.5 MCG 2 PUFF INH (08:18)
--- NOTE | 2024-12-07 09:00 | W.PN.UPDATE ---
Update Note
Progress Note Update
Seen and examined the patient. Agree with assessment plan put forth by the resident. See changes in my documentation.
79-year-old with shortness of breath
Ultrasound of the kidneys-severe chronic bilateral renal disease. Diffuse urinary bladder wall thickening and trabeculation. 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
Echo 11/28/2023-mild LVH with dilated LV end global hypokinesis and septal dyskinesis. Mild the PDA and inferior wall akinesis. EF 20 to 25%. Bioprosthetic mitral valve. Severe LA dilatation. Moderate to severe TR pulmonary artery pressure 29
mmHg
CVS: S1-S2 normal, sm RHB
Chest: CTA B/L
Abdomen: Soft, NT / Bowel sounds present
Extremities: B/L edema
# Acute kidney injury on CKD stage III
Metabolic acidosis and hyperkalemia secondary to above
Entresto held
Lasix dosing per nephrology
Continue p.o. bicarb
Patient apparently had discussions about dialysis but undecided
# Chronic HFrEF with ischemic cardiomyopathy
Echo with ejection fraction 20 to 25%
AICD has been recommended by fire safety inspector at [facility] in the past
Diuresis is limited by hypotension
Cardiology following.
# Coronary artery disease history of CABG
# History of mitral valve replacement-bioprosthetic
# Paroxysmal atrial fibrillation-Eliquis, also on amiodarone, metoprolol
# Left bundle branch block
# Hypocalcemia-vitamin D levels pending
# Hyperlipidemia-continue statin
# COPD without exacerbation-continue Incruse Ellipta or equivalent
# Hypothyroidism-continue levothyroxine
# History of pulmonary embolism-continue Eliquis
# History of laryngeal cancer status post surgery in the past.
# Smoker-cessation counseling
# DVT prophylaxis-Eliquis
# Full code
Part of this note was created using voice recognition system. Occasional wrong word or��sound alike� substitutions may have inadvertently occurred due to the inherent limitations of voice recognition software. If noted kindly bring it to my
attention for correction.
[2024-12-07 10:06] LABS: Vitamin D, 25-OH*** 60.6 ng/mL (30-80)
--- NOTE | 2024-12-07 10:30 | W.PN.CARDCBS ---
Today's Communication / Plan
-
Nephrology managing diuretics and may be nearing dialysis
Outpatient ICD has been planned with her outpatient auto technician mechanic at [facility]
Impression / Plan
-
Primary auto technician mechanic: Favian Dowd at [facility] [phone]
Impression:
Acute renal failure
Medical noncompliance
Acute on chronic heart failure reduced EF, pro bnp >27,000
Class III heart failure symptoms
Ischemic cardiomyopathy ejection fraction 20 to 25% on guideline based medical therapy November 27, 2024
Intolerant of full guideline based medical therapy due to renal insufficiency
History of coronary artery disease status post CABG 8 months ago
Ischemic cardiomyopathy
Valvular heart disease status post AVR and MVR 8 months ago
Chronic kidney disease stage IIIB
Atypical atrial flutter appears persistent and review of all available ECGs
Left bundle branch block
Hypothyroidism status post thyroid resection
Laryngeal cancer status post resection
Previous cardiovascular studies:
Awaiting records from previous auto technician mechanic
Echo 11/27/2024: EF 20 to 25%. Mild LVH with dilated left ventricle and global hypokinesis with septal and dyskinesis, mid and apical inferior and apical akinesis. Severe left atrial dilation. Bioprosthetic mitral valve with mean gradient 2 and no
regurgitation. Moderate to severe TR with PAP 29 mmHg
Recommendations:
Nephrology managing diuretics
May need dialysis
She inquires about defibrillator that was planned as an outpatient and this may be better left to her outpatient auto technician mechanic at [facility] but she may not go back there
Progress Note - Zigzag App[employer]
Subjective
Date of Service: December 07, 2024
No chest pain or shortness of breath
Objective
Labs:
12/06/24 08:46
12/07/24 06:29
Labs
Hgb 11.3 g/dL (12.0-16.0) L 12/06/24 08:46
Hct 34.4 % (37.0-47.0) L 12/06/24 08:46
Plt Count 263 10^3/uL (130-400) 12/06/24 08:46
Sodium 142 mmol/L (135-145) 12/07/24 06:29
Potassium 4.8 mmol/L (3.5-5.1) 12/07/24 06:29
BUN 104 mg/dl (7-17) H* 12/07/24 06:29
Creatinine 3.7 mg/dL (0.6-1.0) H 12/07/24 06:29
Glucose 86 mg/dl (70-99) 12/07/24 06:29
Troponins
12/05/24 12/06/24 12/06/24
21:20 04:28 08:46
Troponin I 0.050 H* 0.045 H* 0.054 H*
12/06/24 12/06/24
16:32 17:49
Troponin I Cancelled 0.045 H*
Vital Signs and I&O:
Vital Signs
Temp Pulse Resp BP Pulse Ox
97.5 F 98 18 122/78 97
12/07/24 07:17 12/07/24 08:11 12/07/24 07:17 12/07/24 08:11 12/07/24 07:17
Vital Signs
Temp Pulse Resp BP Pulse Ox
97.5 F 98 18 122/78 97
12/07/24 07:17 12/07/24 08:11 12/07/24 07:17 12/07/24 08:11 12/07/24 07:17
Intake & Output
12/05/24 12/06/24 12/07/24 12/08/24
06:59 06:59 06:59 06:59
Intake Total 120 / 120 1300 / 1300 240 / 240
Balance 120 / 120 1300 / 1300 240 / 240
Physical Exam
Physical Exam
General: Well developed, well nourished in NAD.
Neck: Supple, no JVD, HJR, carotids +2 B/L, no bruits bilaterally.
Heart: Non displaced PMI, RRR, no murmurs, No S3, S4, no rubs.
Lungs: Scattered rhonchi at the bases
Extremities: No clubbing, cyanosis or edema bilaterally.
Neuro: Grossly nonfocal, awake, alert and oriented x3.
--- NOTE | 2024-12-07 14:12 | CM ---
CM following re: discharge planning.
Reviewed pt's chart, met with pt.
Pt lives alone in an apartment 1st floor, no steps, has 3 daughters and pt stated she is expected her daughters will help more than they do. 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
and raised toilet seat. Pt expressed her strong desire to return back home at discharge and she stated she had in the past [facility]. Pt stated her son in law will transport home at discharge.
PT and OT evaluations noted - SNF vs home PT/OT recommended. Pt strongly preferred home Pt and pt requested [facility].
A referral to [facility] made.
D/c plan: per pt's strong request, home with [facility] and family support. Son in law to transport at discharge.
CM will follow with discharge plan updates as hospitalization progresses
--- NOTE | 2024-12-07 15:03 | W.PN.NEPH.PH ---
Today's Communication / Plan
-
follow BMP
Assessment/Plan
-
Impression:
OFELIA on CKD III-no baseline cr, last jamal 1.8
Metabolic Acidosis-mixed
Mild Hyperkalemia
Ischemic Cardiomyopathy
Chronic HFrEF = 20-25%.
Paroxysmal Atrial Fibrillation
COPD without Acute Exacerbation
CAD status post CABG
Valvular heart disease status post AVR and MVR
Hypothyroidism status post thyroid resection
Laryngeal cancer status post resection
Hyperphosphatemia
Echo:
Echo 11/27/2024: EF 20 to 25%. Mild LVH with dilated left ventricle and global hypokinesis with septal and dyskinesis, mid and apical inferior and apical akinesis. Severe left atrial dilation. Bioprosthetic mitral valve with mean gradient 2 and no
regurgitation. Moderate to severe TR with PAP 29 mmHg
Plan:
follow BMP
lasix 40mg po daily
await PTH, i suspect she will require calcitriol
no entresto
d/w pt need to have OP dry wall installations mechanic. (she does not have a PCP, only endo for thyroid. She does not really follow with cardiology)
d/w pt that CKD progression typically has few if any symptoms, and regular labs are required to follow and that even at ESRD she may not have significant symptoms
remains a high risk situation
-
-
Date of Service: December 07, 2024
CC / HPI / ROS
-
Chief Complaint:
OFELIA
History of Present Illness:
OFELIA/Cr stable 3.7
BUN high stable 104
BP stable
Review of Systems:
no CP/SOB
Labs
-
Labs:
WBC 6.0 10^3/uL (4.8-10.8) 12/06/24 08:46
RBC 3.77 10^6/uL (4.20-5.40) L 12/06/24 08:46
Hgb 11.3 g/dL (12.0-16.0) L 12/06/24 08:46
Hct 34.4 % (37.0-47.0) L 12/06/24 08:46
Plt Count 263 10^3/uL (130-400) 12/06/24 08:46
Sodium 142 mmol/L (135-145) 12/07/24 06:29
Potassium 4.8 mmol/L (3.5-5.1) 12/07/24 06:29
Chloride 108 mmol/L (98-107) H 12/07/24 06:29
Carbon Dioxide 21 mmol/L (22-30) L 12/07/24 06:29
BUN 104 mg/dl (7-17) H* 12/07/24 06:29
Creatinine 3.7 mg/dL (0.6-1.0) H 12/07/24 06:29
eGFR 12.00 12/07/24 06:29
Glucose 86 mg/dl (70-99) 12/07/24 06:29
Calcium 7.7 mg/dl (8.4-10.2) L 12/07/24 06:29
Calcium 7.7 mg/dl (8.4-10.2) L 12/07/24 06:29
Phosphorus 9.4 mg/dl (2.5-4.5) H 12/06/24 08:46
Hjj-Y-Rwgcbadllzi Pept > 69947 pg/ml 12/05/24 21:20
Albumin 4.3 g/dl (3.5-5.0) 12/05/24 21:20
Physical Exam
-
Vital Signs:
Vital Signs
Temp Pulse Resp BP Pulse Ox
97.5 F 87 18 104/71 98
12/07/24 11:35 12/07/24 11:35 12/07/24 11:35 12/07/24 11:35 12/07/24 11:35
Cardiovascular:: Regular rate and rhythm
Respiratory:: Bilateral: Coarse
Lung Excursion:: Normal
Abdomen:: Nontender and Soft
Bowel Sounds:: Normal
Extremity Edema:: None: Bilateral:
--- NOTE | 2024-12-07 15:24 | W.PN.HOSP.TC ---
Today's Communication/Plan
-
Started calcium acetate 1000 3034 mg p.o. with meals for hyperphosphatemia and hypocalcemia.
Assessment / Plan
Assessment / Plan
Impression
Patient is a 79y F with PMH significant for ASCVD, ischemic cardiomyopathy, HFrEF and CKD III who presents to ED complaining of SOB and fatigue. Patient was admitted to 11/25 - 11/27 for CHF. She received a brief course of IV Lasix and was
discharged with instructions to take Lasix PRN for weight gain and to discontinue her Entresto. She did neither of those things. Patient is typically followed by Dr. Dowd ([facility]). She has been recommended ICD placement
but this was initially postponed due to renal impairment and patient later signed out AMA.
Patient underwent CABG and BioMVR about 8 months ago and notes that she was doing well until about 4 weeks ago.
Patient also admits that she started smoking again after being told she had 'heart failure' because she was 'upset'.
She has been using an albuterol rescue inhaler at home 'all of the time' due to her feelings of dyspnea.
Plan
# Acute kidney injury on CKD stage III
Metabolic acidosis and hyperkalemia
Entresto held
Lasix dosing per nephrology
Continue p.o. bicarb
Patient had discussions about dialysis but undecided
Nephrology following: Trend BMP
# Chronic HFrEF with ischemic cardiomyopathy
Echo with ejection fraction 20 to 25%
AICD has been recommended by agent contract clerk at [facility] in the past
Cardiology following: Recommends AICD outpatient with her agent contract clerk
Diuresis is limited by hypotension
# Hypocalcemia
- vitamin D levels pending
� Continue home calcium carbonate at increased dose of 1000 mg p.o. twice daily
� Calcium acetate 1334 mg with meals
#Hyperphosphatemia
� Calcium acetate (phosphate binder) 1334 mg with meals
# Coronary artery disease history of CABG in 05/2024
# History of mitral valve replacement-bioprosthetic
# Paroxysmal atrial fibrillation-Eliquis, also on amiodarone, metoprolol
# Left bundle branch block
# Hyperlipidemia-continue statin
# COPD without exacerbation-continue Incruse Ellipta or equivalent
# Hypothyroidism-continue levothyroxine
# History of pulmonary embolism-continue Eliquis
# History of laryngeal cancer status post surgery in the past.
# Smoker-cessation counseling
# DVT prophylaxis-Eliquis
# Full code
Part of this note was created using voice recognition system. Occasional wrong word or��sound alike� substitutions may have inadvertently occurred due to the inherent limitations of voice recognition software. If noted kindly bring it to my
attention for correction.
Anticipated Discharge: 24 - 48 hours
Subjective/Interval History
-
Date of Service: December 07, 2024
No acute events overnight. Patient denies shortness of breath (and does not expect to be short of breath as she is sitting most of the time in the hospital), chest pain, palpitations, racing heart rate.
Objective Data
-
Labs:
Laboratory Results
12/07/24 12/07/24
06:29 06:29
Sodium 142
Potassium 4.8
Chloride 108 H
Carbon Dioxide 21 L
BUN 104 H*
Creatinine 3.7 H
Glucose 86
Calcium 7.7 L 7.7 L
Vital Signs:
Vital Signs
Temp Pulse Resp BP Pulse Ox
97.5 F 87 18 104/71 98
12/07/24 11:35 12/07/24 11:35 12/07/24 11:35 12/07/24 11:35 12/07/24 11:35
I&O
12/06/24 12/07/24 12/08/24
06:59 06:59 06:59
Intake Total 120 / 120 1300 / 1300 240 / 240
Balance 120 / 120 1300 / 1300 240 / 240
Review of Systems
-
History Source: Patient
Physical Exam
-
General: Well Developed, Well Nourished, No Apparent Distress and Comfortable
HEENT: Normocephalic, Atraumatic, Moist Mucous Membranes, Nose Appears Normal and Ears Appear Normal
Respiratory: Rales
Cardiac: Regular Rhythm, S1/S2 and Tachycardic
GI: Soft, Nontender, Nondistended and Normal Bowel Sounds
Genito-urinary: No Costovertebral Tender
Musculoskeletal: No Clubbing, No Cyanosis, Edema, Right Lower Extrem and Edema, Left Lower Extrem
Skin: Warm
Neuro: Awake and Alert
Psych: Calm
Data Reviewed
-
Diagnostic Radiology: Report Reviewed by me
Ultrasound: Report Reviewed by me
Labs: Labs Reviewed by me
[2024-12-07] MEDS: PHOSLO 1334 MG PO (17:27)
[2024-12-07] MEDS: LIPITOR 40 MG PO (21:14)
[2024-12-08] VITALS (7 sets, daily range): BP systolic 108–121; BP diastolic 61–76; PULSE 85; BMI 26.1
[2024-12-08] MEDS: SYNTHROID 150 MCG PO (05:52)
[2024-12-08] MEDS: SPIRIVA RESPIMAT 2.5 MCG INH (07:40)
[2024-12-08 07:59] LABS: Blood Urea Nitrogen 94 mg/dl (7-17); Calcium 7.3 mg/dl (8.4-10.2); Carbon Dioxide 21 mmol/L (22-30); Chloride 108 mmol/L (98-107); Estimated Creatinine Clearance 14 ml/min; Glucose 84 mg/dl (70-99); Potassium 4.2 mmol/L (3.5-5.1); Sodium 141 mmol/L (135-145); eGFR 14.28
--- NOTE | 2024-12-08 08:35 | PTOTSP ---
Speech Language Pathology
Pt seen for clinical bedside swallow evaluation. RN reported regurgitation of pills yesterday. Pt irritable for AUTOMOBILE LIGHTS ASSEMBLER. Denied any dysphagia, previous PNA, or need for swallow evaluation. P.O. trials of puree and thin liquids accepted. Refused
regular solids. No oral difficulty noted with limited consistencies accepted. Wet delayed cough with cup sip of thin liquids. Not noted with straw sip. Discussed reason for swallow evaluation and potential signs of aspiration. Pt refused
further trials or evaluation with AUTOMOBILE LIGHTS ASSEMBLER. WBC WNL.
Recommend:
(1) Unable to fully assess, but continue regular solids/thin liquids given WBC WNL and no current PNA
(2) General aspiration precautions
(3) Esophageal precautions given hx of esophageal CA
(4) Meds whole in puree as tolerated
(5) AUTOMOBILE LIGHTS ASSEMBLER to sign off given pt refusal
[2024-12-08] MEDS: ELIQUIS 2.5 MG PO ×2 (08:45→20:37)
[2024-12-08] MEDS: ASPIR LOW (ENTERIC COATED) 81 MG PO (08:46)
[2024-12-08] MEDS: OSCAL CAL 500 1000 MG PO (08:46)
[2024-12-08] MEDS: PROTONIX 40 MG PO (08:46)
[2024-12-08] MEDS: SODIUM BICARBONATE 650 MG PO ×3 (08:46→22:01)
[2024-12-08] MEDS: PHOSLO 1334 MG PO (08:47)
[2024-12-08] MEDS: LASIX 40 MG PO (08:47)
[2024-12-08] MEDS: PACERONE 200 MG PO ×2 (08:49→20:37)
[2024-12-08] MEDS: TOPROL XL 25 MG PO ×2 (08:49→20:37)
--- NOTE | 2024-12-08 09:05 | W.PN.CARDCBS ---
Addendum entered and electronically signed by Emmnauel Knicaid MD 12/08/24 12:10:
I saw and examined the patient.
The SHEARING MACHINE FEEDER or PA's note was reviewed and I agree with the note.
Comment: General: Well developed, well nourished in NAD.
Neck: Supple, no JVD, HJR, carotids +2 B/L, no bruits bilaterally.
Heart: Non displaced PMI, RRR, no murmurs, No S3, S4, no rubs.
Lungs: Scattered rhonchi
Extremities: No clubbing, cyanosis or edema bilaterally.
Neuro: Grossly nonfocal, awake, alert and oriented x3.
Stable cardiology status for discharge but very high likelihood of readmission. Recommend she follow-up with cardiology at [facility] for outpatient defibrillator. Discussed with primary service in detail. She will likely eventually need dialysis
and compliance remains an issue
Original Note:
Today's Communication / Plan
-
Continue oral diuresis per nephrology
Recommend she continues follow up with outpatient conformal pad former
Compliance remains main issue
Impression / Plan
-
Primary conformal pad former: Favian Dowd at [facility] [phone]
Impression:
Presented 12/05/2024 with worsening SOB
Acute renal failure
Medical noncompliance
Acute on chronic heart failure reduced EF, pro bnp >27,000
Class III heart failure symptoms
Ischemic cardiomyopathy ejection fraction 20 to 25% on guideline based medical therapy November 27, 2024
Intolerant of full guideline based medical therapy due to renal insufficiency
History of coronary artery disease status post CABG April 2024
Ischemic cardiomyopathy
Valvular heart disease status post AVR and MVR 8 months ago
Chronic kidney disease stage IIIB
Atypical paroxysmal atrial flutter
Left bundle branch block
Hypothyroidism status post thyroid resection
Laryngeal cancer status post resection
Echo 11/27/2024: EF 20 to 25%. Mild LVH with dilated left ventricle and global hypokinesis with septal and dyskinesis, mid and apical inferior and apical akinesis. Severe left atrial dilation. Bioprosthetic mitral valve with mean gradient 2 and no
regurgitation. Moderate to severe TR with PAP 29 mmHg
Recommendations:
OFELIA on CKD III,
-Nephrology managing diuretics, currently getting Lasix 40 mg daily
- creat oeak of 3.8, now 3.2
-Unable to tolerate TAHIRA/ARB/ARNI secondary to kidney disease
-Ongoing discussion regarding need for dialysis, patient remains undecided
Acute on chronic heart failure reduced EF 20-25%, proBNP greater than 27,000
- Patient denies shortness of breath.
- OFELIA has limited diuresis. Being followed by nephrology who is handling diuretics. Dialysis discussion ongoing but patient undecided
- Would avoid TAHIRA/ARB/ARNI secondary to kidney disease
- Continue Toprol
- Was scheduled to get ICD with primary outpatient conformal pad former at [place] but has been postponed on several occasions due to OFELIA. Recommended ongoing follow-up with her outpatient conformal pad former/boat canvas maker installer. Discussed implant of device
may be limited due to her ongoing kidney issues and initiation of dialysis may be best option for her.
History of CABG/CAD
- Continue Toprol, statin, aspirin
Paroxysmal atrial flutter
- Rate controlled on Toprol
- Continue anticoagulation with Eliquis
History of noncompliance - patient is not understanding the severity of her medical issues. Unclear she is good candidate for dialysis given non-compliance. She needs to express willingness to carry through with medical care, follow ups, taking her
medications
History of Present Illness 12/06/2024:
79-year-old female with a history of noncompliance status post CABG and mitral valve surgery at [facility] 8 months ago. She is followed by Dr. Dowd as her conformal pad former�boat canvas maker installer reportedly. She has had planned defibrillator
implantation coming up this month but was canceled due to increased renal insufficiency and she came to [facility] for a second opinion. She was just here on November 27 please see our prior notes. She comes in with mild
volume overload and acute renal failure BUN 116 creatinine 3.8 with an apparent baseline of 1.4-1.6. She has a complex past medical history and she did not follow treatment recommendations at discharge from review of the records. Review of her 3
available ECGs demonstrates atypical atrial flutter with either variable block or regular conduction. She is on chronic oral anticoagulation.
Progress Note - Superintendent Transportation
Subjective
Date of Service: December 08, 2024
Patient seen and examined. Patient sitting on side of bed. Reports she is very frustrated at her ongoing health issues. She just wants to get out of the hospital.
Objective
Labs:
12/06/24 08:46
12/08/24 07:12
Labs
Hgb 11.3 g/dL (12.0-16.0) L 12/06/24 08:46
Hct 34.4 % (37.0-47.0) L 12/06/24 08:46
Plt Count 263 10^3/uL (130-400) 12/06/24 08:46
Sodium 141 mmol/L (135-145) 12/08/24 07:12
Potassium 4.2 mmol/L (3.5-5.1) 12/08/24 07:12
BUN 94 mg/dl (7-17) H 12/08/24 07:12
Creatinine 3.2 mg/dL (0.6-1.0) H 12/08/24 07:12
Glucose 84 mg/dl (70-99) 12/08/24 07:12
Troponins
12/05/24 12/06/24 12/06/24
21:20 04:28 08:46
Troponin I 0.050 H* 0.045 H* 0.054 H*
12/06/24 12/06/24
16:32 17:49
Troponin I Cancelled 0.045 H*
Vital Signs and I&O:
Vital Signs
Temp Pulse Resp BP Pulse Ox
98.1 F 84 20 115/73 96
12/08/24 07:00 12/08/24 08:49 12/08/24 07:00 12/08/24 08:49 12/08/24 07:00
Vital Signs
Temp Pulse Resp BP Pulse Ox
98.1 F 84 20 115/73 96
12/08/24 07:00 12/08/24 08:49 12/08/24 07:00 12/08/24 08:49 12/08/24 07:00
Intake & Output
12/06/24 12/07/24 12/08/24 12/09/24
06:59 06:59 06:59 06:59
Intake Total 120 / 120 1300 / 1300 1080 / 1080
Balance 120 / 120 1300 / 1300 1080 / 1080
Physical Exam
Physical Exam
GEN: No distress, awake, Ox3, sitting on edge of bed
HEENT: supple, anicteric, mmm
LUNGS: faint crackles at the bases otherwise CTA, no wheezes/rales; on room air
CV: Reg, S1/S2, 1/6 syst LSB, no murmur
ABD: soft, BS+, NT/ND
EXT: +1 edema bilaterally
NEURO: Gross non-focal
SKIN: No rash, warm, dry
--- NOTE | 2024-12-08 10:16 | W.PN.NEPH.PH ---
Today's Communication / Plan
-
lasix po
Assessment/Plan
-
Impression:
OFELIA on CKD III-no baseline cr, last jamal 1.8
Metabolic Acidosis-mixed
Mild Hyperkalemia
Ischemic Cardiomyopathy
Chronic HFrEF = 20-25%.
Paroxysmal Atrial Fibrillation
COPD without Acute Exacerbation
CAD status post CABG
Valvular heart disease status post AVR and MVR
Hypothyroidism status post thyroid resection
Laryngeal cancer status post resection
Hyperphosphatemia
Echo:
Echo 11/27/2024: EF 20 to 25%. Mild LVH with dilated left ventricle and global hypokinesis with septal and dyskinesis, mid and apical inferior and apical akinesis. Severe left atrial dilation. Bioprosthetic mitral valve with mean gradient 2 and no
regurgitation. Moderate to severe TR with PAP 29 mmHg
Plan:
follow BMP
lasix 40mg po daily
PTH low
no entresto
previously-d/w pt need to have OP supervisor lathing. (she does not have a PCP, only endo for thyroid. She does not really follow with cardiology)
d/w pt that CKD progression typically has few if any symptoms, and regular labs are required to follow and that even at ESRD she may not have significant symptoms
I think she could undergo ICD from renal perspective if needed. It would not change her renal prognosis.
currently no emergent dialysis needs
stop calcium carbonate, now on phoslo
-
-
Date of Service: December 08, 2024
CC / HPI / ROS
-
Chief Complaint:
OFELIA
History of Present Illness:
OFELIA/Cr down to 3.2
BUN down to 94
BP stable
Review of Systems:
no CP/SOB
Labs
-
Labs:
WBC 6.0 10^3/uL (4.8-10.8) 12/06/24 08:46
RBC 3.77 10^6/uL (4.20-5.40) L 12/06/24 08:46
Hgb 11.3 g/dL (12.0-16.0) L 12/06/24 08:46
Hct 34.4 % (37.0-47.0) L 12/06/24 08:46
Plt Count 263 10^3/uL (130-400) 12/06/24 08:46
Sodium 141 mmol/L (135-145) 12/08/24 07:12
Potassium 4.2 mmol/L (3.5-5.1) 12/08/24 07:12
Chloride 108 mmol/L (98-107) H 12/08/24 07:12
Carbon Dioxide 21 mmol/L (22-30) L 12/08/24 07:12
BUN 94 mg/dl (7-17) H 12/08/24 07:12
Creatinine 3.2 mg/dL (0.6-1.0) H 12/08/24 07:12
eGFR 14.28 12/08/24 07:12
Glucose 84 mg/dl (70-99) 12/08/24 07:12
Calcium 7.3 mg/dl (8.4-10.2) L 12/08/24 07:12
Phosphorus 6.9 mg/dl (2.5-4.5) H 12/08/24 07:12
Utt-G-Mwrxkwsxtuz Pept > 38122 pg/ml 12/05/24 21:20
Albumin 4.3 g/dl (3.5-5.0) 12/05/24 21:20
Physical Exam
-
Vital Signs:
Vital Signs
Temp Pulse Resp BP Pulse Ox
98.1 F 84 20 115/73 96
12/08/24 07:00 12/08/24 08:49 12/08/24 07:00 12/08/24 08:49 12/08/24 07:00
Cardiovascular:: Regular rate and rhythm
Respiratory:: Bilateral: Coarse
Lung Excursion:: Normal
Abdomen:: Nontender and Soft
Bowel Sounds:: Normal
Extremity Edema:: +2: Bilateral:
--- NOTE | 2024-12-08 11:19 | PN.CDI ---
CDI
- -
CDI:
Physician Documentation Request
Admit Date: 12/06/24 02:34
Dear Doctor,
Please review the following and provide your response in the progress notes.
Clinical Indicators:
- Cardiology 'Acute on chronic heart failure reduced EF 20-25%, proBNP greater than 27,000'
- 'Class III heart failure symptoms'
- 'OFELIA has limited diuresis'
- PN 'Chronic HFrEF with ischemic cardiomyopathy'
In an attempt to clarify potentially conflicting documentation, please clarify the acuity of the HFrEF
Acute on chronic HFrEF
Chronic HFrEF
Other (please specify)
Use of terms such as suspected, likely, concern for, or probable (associated with a specific diagnosis that is being evaluated, monitored, or treated as if it exists) are acceptable and can be coded in the inpatient setting, when documented at the
time of discharge.
Thank you,
Jannet Syed RN
CDI Specialist
Please use your independent medical judgment in providing your response.
--- NOTE | 2024-12-08 13:43 | W.PN.UPDATE ---
Update Note
Progress Note Update
Seen and examined the patient. Agree with assessment plan put forth by the resident. See changes in my documentation.
79-year-old with shortness of breath and gen weakness on arrival. Feels well now.
Ultrasound of the kidneys-severe chronic bilateral renal disease. Diffuse urinary bladder wall thickening and trabeculation. 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
Echo 11/28/2023-mild LVH with dilated LV end global hypokinesis and septal dyskinesis. Mild the PDA and inferior wall akinesis. EF 20 to 25%. Bioprosthetic mitral valve. Severe LA dilatation. Moderate to severe TR pulmonary artery pressure 29
mmHg
CVS: S1-S2 normal, sm RHB
Chest: CTA B/L
Abdomen: Soft, NT / Bowel sounds present
Extremities: B/L edema-present but better
# Acute kidney injury on CKD stage III
Metabolic acidosis and hyperkalemia secondary to above
Entresto held, no Entresto for discharge
Lasix dosing per nephrology
Continue p.o. bicarb
Patient apparently had discussions about dialysis but undecided. She does not want to engage in a conversation to address dialysis access
# Chronic HFrEF with ischemic cardiomyopathy
Echo with ejection fraction 20 to 25%
AICD has been recommended by sheet sewer at [facility] in the past
Diuresis 40 mg of Lasix daily
Cardiology following.
# Coronary artery disease history of CABG
# History of mitral valve replacement-bioprosthetic
# Paroxysmal atrial fibrillation-Eliquis, also on amiodarone, metoprolol
# Left bundle branch block
# Hypocalcemia-vitamin D levels stable
# Hyperlipidemia-continue statin
# COPD without exacerbation-continue Incruse Ellipta or equivalent
# Hypothyroidism-continue levothyroxine
# History of pulmonary embolism-continue Eliquis
# History of laryngeal cancer status post surgery in the past.
# Smoker-cessation counseling
# DVT prophylaxis-Eliquis
# DNR
Xarelto was changed to Eliquis this admission because of renal dysfunction
I had a very detailed discussion with the patient in the room today regarding her compliance with medicines and follow-ups. She thinks that she only needs to see a physician or come to the hospital when she has symptoms. We discussed that that is
the body's last resort and failing to compensate the problem. It is better to take care of diseases prior to symptoms appearing especially in the case of chronic diseases like her heart disease and and kidney problems. Also discussed about getting
dialysis access if she is planning for dialysis. Patient does not want to engage in that conversation. Discussed about compliance with fluid, sodium which she states that she has a hard time cooking without salt and will continue to do that. I
also discussed about need to follow-up with cardiology, primary as well as nephrology. She states that she has an appointment with PCP tomorrow at 2 PM at [facility]. Also discussed about cardiology recommendations regarding AICD. We offered
appointments at the residents clinic here however she thinks this is too far for her to make it for appointments. Patient then gets frustrated with my advices and told me that the more I advised the less compliant she will be.
Discussed with nephrology as well as cardiology. We all realized that patient is noncompliant and is a high risk for readmission post discharge.
Discussed with daughter and son-in-law regarding all the above and updated. They asked why she cannot get all the procedures done while here. We discussed about need for follow-up and get these done as outpatient. They also realized that patient
is not very compliant after she leaves the hospital.
Patient stated that there is no place like home and she really wants to be home in her recliner now than spend time at the hospital as she is feeling much better. She does not want to go to rehab.
CODE STATUS discussed and she is very clear she wants to be DNR
Discussed with pharmacy
Discharge Time spent over 45 minutes
Part of this note was created using voice recognition system. Occasional wrong word or��sound alike� substitutions may have inadvertently occurred due to the inherent limitations of voice recognition software. If noted kindly bring it to my
attention for correction.
[2024-12-08] MEDS: PHOSLO 667 MG PO ×2 (13:46→17:41)
--- NOTE | 2024-12-08 14:13 | W.DCSUMMARY ---
Discharge Summary
Discharge Data
Date of Admission: 12/06/24
Date of Discharge: 12/10/24
Total time spent discharging patient (in min): 45
-
Pending Results: No
Hospital Course
Ms. Daija Burrell has a PMH significant for ASCVD, ischemic cardiomyopathy, HFrEF and CKD III, and presented with SOB and fatigue. She was admitted here 11/25 - 11/27 for CHF. She received a brief course of IV Lasix and was discharged with
instructions to take Lasix PRN for weight gain and discontinue her Entresto. She reports doing neither. Patient is typically followed by Dr. Dowd ([facility]). She was recommended ICD placement but this was initially
postponed due to renal impairment and she later signed out AMA.
She underwent CABG and BioMVR in 05/2024 and notes that she was doing well until about 4 weeks ago.
She complains of worsening SOB - mostly with exertion or with lying flat. She has no chest pain, cough, fevers / chills. There is no significant LE swelling.
She also admits that she started smoking again after being told she had 'heart failure' because she was 'upset'.
She has been using an albuterol rescue inhaler at home 'all of the time' due to her feelings of dyspnea.
ED course:
CBC unremarkable. Chemistry with multiple electrolyte abnormalities, including hyperkalemia as well as hypocalcemia. Acute on chronic renal insufficiency noted with creatinine of 3.8 elevated from 1.8 upon discharge. Troponin elevated to 0.05 which
is stable and likely secondary to demand ischemia. Pro-bnp >27,000.
Chest x-ray show evidence of cardiomegaly; otherwise it appears stable.
Patient�s blood pressure is soft and given significant renal insufficiency � held diuretic/lasix. Patient may require dialysis. Patient given 1gm calcium gluconate. Patient accepted to hospitalist service in stable condition for continued management.
# Acute kidney injury on CKD stage III
Metabolic acidosis and hyperkalemia secondary to above
Entresto held. No Entresto for discharge
Lasix dosing per nephrology.
Continue p.o. bicarb
Patient had discussions about dialysis but undecided. She does not want to engage in a conversation to address dialysis access
# Chronic HFrEF with ischemic cardiomyopathy
Echo with ejection fraction 20 to 25%
AICD has been recommended by experimental machinist at [facility] in the past
Diuresis 40 mg of Lasix daily. Discharged on Lasix 40 mg p.o. daily
Cardiology following.
# Hypocalcemia
- vitamin D levels pending
� Continue home calcium carbonate at increased dose of 1000 mg p.o. twice daily
� Calcium acetate 1334 mg with meals
#Hyperphosphatemia
� Calcium acetate (phosphate binder) 1334 mg with meals
#Left foot pain
Patient reported pain at left foot on 12/09/2024. Focal tenderness to palpation on dorsal lateral surface. Patient denies history of gout
- Uric acid elevated at 15.3, which could be due to chronic kidney disease or gout.
- Left foot x-ray without fracture, unremarkable
� Lidocaine patch provided
� Patient declined prednisone, but agreed to allopurinol. Discharged patient with allopurinol and instructions to take it after the acute pain subsides
Discharge Plan
-
Patient Disposition: Home with Home Care
Discharge Diagnosis/Procedures: Primary:
Acute kidney injury/acute exacerbation of chronic kidney disease
Acute exacerbation of chronic failure heart failure
Hyperphosphatemia
Hypocalcemia
Secondary:
Leg weakness
Paroxysmal A-fib
Mitral regurgitation, bioprosthetic valve
Aortic regurgitation
Hyperlipidemia
COPD
Hypothyroidism
Condition: Fair
Diet: Low Cholesterol and Low Sodium
Activity: As tolerated
Driving Restrictions: As prior to admission
Specialty Instructions: Weigh Daily- Call MD for wt gain/loss 3 lbs overnight/5 lbs in 1 week
Referrals:
Luz Vann MD, Resident [Family Practice Resident Year2, General] - in one to two weeks
Referral Note: Primary care
Favian Dowd MD [Non-Admitting Privileges, Internal Medicine] - in one to two weeks
Referral Note: Discuss possible AICD (automatic implantable cardioverter-defibrillator)
Chichi Howard MD [Active, Nephrology] - in less than 1 week
Referral Note: Acute kidney injury follow-up. Discuss possible dialysis.
Additional Discharge Medication Instructions: Please go to your primary care appointment tomorrow 12/09/24 at 2 PM. Please also see a experimental machinist and cosmetic account coordinator, as they can help you get better, such as with an implantable cardiac defibrillator.
Please take Lasix 40 mg daily. Please see a doctor (be it primary care, cardiology, or nephrology) for refills.
Please get blood work in 2 weeks (basic metabolic panel) to follow-up on your kidney function (creatinine, BUN) and electrolytes (follow-up on hypocalcemia, hyperphosphatemia).
Since your uric acid levels are high, which could be due to chronic kidney disease or gout, please take allopurinol 50 mg twice weekly (every 3 to 4 days) after your left foot pain goes away.
Prescriptions:
New
(DME) Basic metabolic panel
See Rx Instructions .ROUTE .MEDSUPPLY Qty: 1 0RF
Rx Instructions:
Kidney function (creatinine, BUN). Follow-up on hypocalcemia and hyperphosphatemia.
furosemide 40 mg Tablet
40 mg PO DAILY Qty: 14 0RF
calcium acetate 667 mg tablet
1,334 mg PO TID Qty: 42 0RF
Rx Instructions:
Hypophosphatemia and hypocalcemia
allopurinol 100 mg tablet
50 mg PO .twice weekly Qty: 4 0RF
Rx Instructions:
Take allopurinol after your left foot pain subsides, 50 mg twice weekly (every 3 to 4 days)
Continued
Incruse Ellipta 62.5 mcg/actuation Blister With Device
1 inh INHALATION R DAILY
atorvastatin [Lipitor] 40 mg Tablet
40 mg PO HS
amiodarone 200 mg Tablet
200 mg PO BID
aspirin 81 mg Tablet,Delayed Release (Dr/Ec)
81 mg PO DAILY
calcium carbonate 500 mg calcium (1,250 mg) Tablet
500 mg PO DAILY
metoprolol succinate [Toprol XL] 25 mg Tablet Extended Release 24 Hr
25 mg PO BID
Refresh Optive 0.5-0.9 % Drops
1 drp BOTH EYES Q6HPRN PRN (Reason: dryness)
Xarelto 15 mg Tablet
15 mg PO DAILY
levothyroxine [Synthroid] 150 mcg Tablet
150 mcg PO DAILY
Discontinued
sacubitril-valsartan [Entresto] 24-26 mg Tablet
1 tab PO BID
Discharge Date and Time
Print Language: UKRAINIAN
[2024-12-08] MEDS: PHOSLO PO (14:23)
--- NOTE | 2024-12-08 14:25 | W.PN.HOSP.TC ---
Today's Communication/Plan
-
Discussed with patient the importance of following up with a primary care provider, cardiology, and nephrology for heart failure and chronic kidney disease. Also asked if she is interested in getting a procedure to form a AV fistula for future
dialysis. She declined. She prefers to only seek medical care when she becomes symptomatic. It was explained that becoming symptomatic from chronic kidney disease may be too late for treatment that can produce a good outcome.
Assessment / Plan
Assessment / Plan
Impression
Patient is a 79y F with PMH significant for ASCVD, ischemic cardiomyopathy, HFrEF and CKD III who presents to ED complaining of SOB and fatigue. Patient was admitted to 11/25 - 11/27 for CHF. She received a brief course of IV Lasix and was
discharged with instructions to take Lasix PRN for weight gain and to discontinue her Entresto. She did neither of those things. Patient is typically followed by Dr. Dowd ([facility]). She has been recommended ICD placement
but this was initially postponed due to renal impairment and patient later signed out AMA.
Patient underwent CABG and BioMVR about 8 months ago and notes that she was doing well until about 4 weeks ago.
Patient also admits that she started smoking again after being told she had 'heart failure' because she was 'upset'.
She has been using an albuterol rescue inhaler at home 'all of the time' due to her feelings of dyspnea.
Plan
# Acute kidney injury on CKD stage III
Metabolic acidosis and hyperkalemia secondary to above
Entresto held. No Entresto for discharge
Lasix dosing per nephrology.
Continue p.o. bicarb
Patient had discussions about dialysis but undecided. She does not want to engage in a conversation to address dialysis access
# Chronic HFrEF with ischemic cardiomyopathy
Echo with ejection fraction 20 to 25%
AICD has been recommended by mid level java developer at [facility] in the past
Diuresis 40 mg of Lasix daily. Discharged on Lasix 40 mg p.o. daily
Cardiology following.
# Hypocalcemia
- vitamin D level normal
� Continue home calcium carbonate at increased dose of 1000 mg p.o. twice daily
� Calcium acetate 1334 mg with meals
#Hyperphosphatemia
� Calcium acetate (phosphate binder) 1334 mg with meals
# Coronary artery disease history of CABG in 05/2024
# History of mitral valve replacement-bioprosthetic
# Paroxysmal atrial fibrillation-Eliquis, also on amiodarone, metoprolol
# Left bundle branch block
# Hyperlipidemia-continue statin
# COPD without exacerbation-continue Incruse Ellipta or equivalent
# Hypothyroidism-continue levothyroxine
# History of pulmonary embolism-continue Eliquis
# History of laryngeal cancer status post surgery in the past.
# Smoker-cessation counseling
# DVT prophylaxis-Eliquis
# Full code
Spoke with family
Part of this note was created using voice recognition system. Occasional wrong word or��sound alike� substitutions may have inadvertently occurred due to the inherent limitations of voice recognition software. If noted kindly bring it to my
attention for correction.
Anticipated Discharge: Today
Subjective/Interval History
-
Date of Service: December 08, 2024
No acute events overnight. Previous evening, the nurse reported the patient regurgitating her oral meds. Speech-language pathology was consulted prior to breakfast today. INDUSTRIAL RELATIONS OFFICER reported the patient refused to engage in much of the exam.
When asked, the patient stated she wants to resume taking her oral meds, and she did not like taking them crushed with applesauce. She reports no other complaints.
Objective Data
-
Labs:
Laboratory Results
12/08/24
07:12
Sodium 141
Potassium 4.2
Chloride 108 H
Carbon Dioxide 21 L
BUN 94 H
Creatinine 3.2 H
Glucose 84
Calcium 7.3 L
Vital Signs:
Vital Signs
Temp Pulse Resp BP Pulse Ox
97 F 85 20 109/69 96
12/08/24 11:00 12/08/24 11:00 12/08/24 11:00 12/08/24 11:00 12/08/24 11:00
I&O
12/07/24 12/08/24 12/09/24
06:59 06:59 06:59
Intake Total 1300 / 1300 1080 / 1080
Balance 1300 / 1300 1080 / 1080
Review of Systems
-
History Source: Patient
All other systems: Reviewed and negative
Physical Exam
-
General: Well Developed, Well Nourished and No Apparent Distress
HEENT: Normocephalic, Atraumatic and Moist Mucous Membranes
Respiratory: Rales
Cardiac: Regular Rhythm and S1/S2
GI: Soft, Nontender, Nondistended and Normal Bowel Sounds
Musculoskeletal: No Clubbing, No Cyanosis, Edema, Right Lower Extrem and Edema, Left Lower Extrem
Skin: Warm and Dry
Neuro: Awake, Alert, Oriented and Other (Poor insight into medical condition)
Data Reviewed
-
Total Time Spent with Patient (in minutes): 35
Diagnostic Radiology: Report Reviewed by me
Ultrasound: Report Reviewed by me
Labs: Labs Reviewed by me
--- NOTE | 2024-12-08 16:15 | CM ---
Patient for discharge home today but following discussion with family and patient/physicians. plan has changed to placement at SNF. CM spoke with family and patient referrals to be sent to [facility] and [facility]. Patient will
need auth when bed has been located. Patient daughter in law asked for her to get phone call to confirm which facilities had offered patient a bed. CM will continue to follow for discharge planning needs.
Plan; SNF; pending bed availability and will need auth.
[2024-12-08] MEDS: LIPITOR 40 MG PO (22:01)
--- NOTE | 2024-12-09 04:54 | PTCARENOTE ---
Pt extremely difficult overnight. Pt argumentative in all aspects of care. Pt refusing help when needed in order to maintain pt safety. Pt unstable on feet, multiple 'almost falls' with staff preventing fall. Pt swatting at staff when attempting to
provided help. PT refusing vital signs, refusing fluid restriction. Pt yelling at staff, rude and disrespectful. Safe environment difficult to maintain due to pt behavior. Emotional support attempted. Bed alarm in place. Will continue to monitor.
[2024-12-09] MEDS: SYNTHROID 150 MCG PO (06:34)
[2024-12-09] MEDS: SPIRIVA RESPIMAT 2.5 MCG 2 PUFF INH (07:16)
[2024-12-09 07:19] VITALS: BP 116/64
[2024-12-09] MEDS: PACERONE 200 MG PO ×2 (08:13→19:40)
[2024-12-09] MEDS: PHOSLO 667 MG PO ×3 (08:13→16:46)
[2024-12-09] MEDS: ASPIR LOW (ENTERIC COATED) 81 MG PO (08:13)
[2024-12-09] MEDS: TOPROL XL 25 MG PO ×2 (08:14→19:40)
[2024-12-09] MEDS: PROTONIX 40 MG PO (08:14)
[2024-12-09] MEDS: LASIX 40 MG PO (08:14)
[2024-12-09] MEDS: ELIQUIS 2.5 MG PO ×2 (08:14→19:40)
[2024-12-09] MEDS: SODIUM BICARBONATE 650 MG PO ×3 (08:14→21:28)
[2024-12-09 09:48] LABS: Blood Urea Nitrogen 95 mg/dl (7-17); Calcium 7.2 mg/dl (8.4-10.2); Carbon Dioxide 18 mmol/L (22-30); Chloride 109 mmol/L (98-107); Estimated Creatinine Clearance 13 ml/min; Glucose 89 mg/dl (70-99); Potassium 4.2 mmol/L (3.5-5.1); Sodium 140 mmol/L (135-145); eGFR 13.76
[2024-12-09 11:17] VITALS: BP 113/66
--- NOTE | 2024-12-09 12:10 | W.PN.HOSP.TC ---
Today's Communication/Plan
-
Acute Kidney injury and heart failure stable.
Patient reporting new left Foot pain. Pain to palpation of dorsal lateral left foot. Uric acid elevated at 15.3, which could be due to chronic kidney disease or gout.
Left foot x-ray unremarkable. Lidocaine patch given.
Patient declined prednisone, but agreed to allopurinol. Will discharge patient with allopurinol and instructions to take it after the acute pain subsides
Assessment / Plan
Assessment / Plan
Impression
Patient is a 79y F with PMH significant for ASCVD, ischemic cardiomyopathy, HFrEF and CKD III who presents to ED complaining of SOB and fatigue. Patient was admitted to 11/25 - 11/27 for CHF. She received a brief course of IV Lasix and was
discharged with instructions to take Lasix PRN for weight gain and to discontinue her Entresto. She did neither of those things. Patient is typically followed by Dr. Dowd ([facility]). She has been recommended ICD placement
but this was initially postponed due to renal impairment and patient later signed out AMA.
Patient underwent CABG and BioMVR about 8 months ago and notes that she was doing well until about 4 weeks ago.
Patient also admits that she started smoking again after being told she had 'heart failure' because she was 'upset'.
She has been using an albuterol rescue inhaler at home 'all of the time' due to her feelings of dyspnea.
Plan
# Acute kidney injury on CKD stage III
Metabolic acidosis and hyperkalemia secondary to above
Entresto held. No Entresto for discharge
Lasix dosing per nephrology.
Continue p.o. bicarb
Patient had discussions about dialysis but undecided. She does not want to engage in a conversation to address dialysis access
# Chronic HFrEF with ischemic cardiomyopathy
Echo with ejection fraction 20 to 25%
AICD has been recommended by aws consultant at [facility] in the past
Diuresis 40 mg of Lasix daily. Discharged on Lasix 40 mg p.o. daily
Cardiology following.
# Hypocalcemia
- vitamin D level normal
� Continue home calcium carbonate at increased dose of 1000 mg p.o. twice daily
� Calcium acetate 1334 mg with meals
#Hyperphosphatemia
� Calcium acetate (phosphate binder) 1334 mg with meals
#Left foot pain
Patient reported pain at left foot on 12/09/2024. Focal tenderness to palpation on dorsal lateral surface. Patient denies history of gout
- Uric acid elevated at 15.3, which could be due to chronic kidney disease or gout.
- Left foot x-ray without fracture, unremarkable
� Lidocaine patch provided
� Patient declined prednisone, but agreed to allopurinol. Will discharge patient with allopurinol and instructions to take it after the acute pain subsides
# Coronary artery disease history of CABG in 05/2024
# History of mitral valve replacement-bioprosthetic
# Paroxysmal atrial fibrillation-Eliquis, also on amiodarone, metoprolol
# Left bundle branch block
# Hyperlipidemia-continue statin
# COPD without exacerbation-continue Incruse Ellipta or equivalent
# Hypothyroidism-continue levothyroxine
# History of pulmonary embolism-continue Eliquis
# History of laryngeal cancer status post surgery in the past.
# Smoker-cessation counseling
# DVT prophylaxis-Eliquis
# DNR
Part of this note was created using voice recognition system. Occasional wrong word or��sound alike� substitutions may have inadvertently occurred due to the inherent limitations of voice recognition software. If noted kindly bring it to my
attention for correction.
Anticipated Discharge: Within 24 hours
Subjective/Interval History
-
Date of Service: December 09, 2024
No acute events overnight. Patient reported pain at left foot on 12/09/2024. Focal tenderness to palpation on dorsal lateral surface. Patient denies history of gout.
Objective Data
-
Labs:
Laboratory Results
12/09/24
07:07
Sodium 140
Potassium 4.2
Chloride 109 H
Carbon Dioxide 18 L
BUN 95 H
Creatinine 3.3 H
Glucose 89
Calcium 7.2 L
Vital Signs:
Vital Signs
Temp Pulse Resp BP Pulse Ox
97.6 F 87 18 113/66 95
12/09/24 11:17 12/09/24 11:17 12/09/24 11:17 12/09/24 11:17 12/09/24 11:17
I&O
12/08/24 12/09/24 12/10/24
06:59 06:59 06:59
Intake Total 1080 / 1080 1979
Balance 1080 / 1080 1979
Review of Systems
-
History Source: Patient
Respiratory: Reports No Symptoms; Denies Trouble Breathing
Cardiac: Reports No Symptoms; Denies Chest Pain or Palpitations
Abdomen/GI: Reports No Symptoms
Musculoskeletal: Reports Joint Pain (Left foot pain) and Muscle Weakness (Bilateral lower extremity weakness)
Skin: Reports No Symptoms
Neuro: Reports No Symptoms
Physical Exam
-
General: Well Developed, Well Nourished, No Apparent Distress and Comfortable
HEENT: Normocephalic, Atraumatic, Moist Mucous Membranes, Anicteric, Nose Appears Normal and Ears Appear Normal
Respiratory: Rales
Cardiac: Regular Rhythm and S1/S2
GI: Soft, Nontender, Nondistended and Normal Bowel Sounds
Musculoskeletal: No Clubbing, No Cyanosis, Edema, Right Lower Extrem (Right foot more edematous than the left) and Other (Focal pain to palpation at the left foot dorsal lateral surface; bilateral lower extremities with erythema, ichthyosis, flaking
skin, suggestive of peripheral vascular disease)
Skin: Warm and Dry
Neuro: Awake, Alert, Oriented, Nonfocal/Grossly Intact and Central Nerve's Intact
Psych: Agitated
Data Reviewed
-
Total Time Spent with Patient (in minutes): 35
Diagnostic Radiology: Report Reviewed by me
Ultrasound: Report Reviewed by me
Labs: Labs Reviewed by me
--- NOTE | 2024-12-09 12:21 | CM ---
CM following rte: discharge planning.
Reviewed pt's chart, met with pt and spoke to pt's daughter Carmen to update on discharge plan progress.
According to pt is medically stable to be discharged. Both pt and her daughter are aware, expressed their agreement. Per daughter Carmen, she told her mother she cannot go home and she must to go to a SNF. pt's daughter stated:'I told my mother
if she goes home she will '. Pt's daughter informed that [facility] and [facility] SNF offered a bed and pt's daughter preferred [facility]. Pt confirmed she agrees to go to [facility].
CM spoke to [facility] and [facility] director of personnel Tabitha and they confirmed that [facility] has a bed and pt is accepted for admission when an auth obtained.
CM initioated an auth from [facility] [id number] for SNF level of cafe at [facility], spoke to personal financial representative Priscilla Patel, a case initiated, requested inpatient Medicate Authorization Form printed out from [id number] [employer],
completed and with pt's clinical faxed to provided fax: [phone]
Awaiting for an auth.
[facility] nursing report: [phone]
Discharge instructions fax: [phone].
D/C plan: [facility] when an auth available. Awaiting for an auth.
CM will follow to assist pt with discharge to [facility].
--- NOTE | 2024-12-09 12:33 | W.PN.NEPH.PH ---
Today's Communication / Plan
-
see plan
Assessment/Plan
-
Impression:
OFELIA on CKD III-no baseline cr, last jamal 1.8
Metabolic Acidosis-mixed
Mild Hyperkalemia
Ischemic Cardiomyopathy
Chronic HFrEF = 20-25%.
Paroxysmal Atrial Fibrillation
COPD without Acute Exacerbation
CAD status post CABG
Valvular heart disease status post AVR and MVR
Hypothyroidism status post thyroid resection
Laryngeal cancer status post resection
Hyperphosphatemia
Echo:
Echo 11/27/2024: EF 20 to 25%. Mild LVH with dilated left ventricle and global hypokinesis with septal and dyskinesis, mid and apical inferior and apical akinesis. Severe left atrial dilation. Bioprosthetic mitral valve with mean gradient 2 and no
regurgitation. Moderate to severe TR with PAP 29 mmHg
Plan:
cr fluctuating trend at 3.3 today
vol status stable on lasix 40mg po daily
luis alfredo is improving on po luis alfredo with PTH low-need f/u out pt, normal vit d
no entresto still
met acidosis stable on po bicarb
previously-d/w pt need to have OP liquid waste treatment plant operator. (she does not have a PCP, only endo for thyroid. She does not really follow with cardiology)
d/w pt that CKD progression typically has few if any symptoms, and regular labs are required to follow and that even at ESRD she may not have significant symptoms
she could undergo ICD from renal perspective if needed. It would not change her renal prognosis.
currently no emergent dialysis needs
stop calcium carbonate, now on phoslo, phos is improving
d/w pt
asked her to see nephro out pt too-which I am not sure if she will do it
BMP 3-5days
-
-
Date of Service: December 09, 2024
CC / HPI / ROS
-
Chief Complaint:
OFELIA
History of Present Illness:
OFELIA/Cr no sig cahnge at 3.3
BUN 95 no change
BP stable
luis alfredo stable 7.2
Review of Systems:
no CP/SOB at rest
Labs
-
Labs:
WBC 6.0 10^3/uL (4.8-10.8) 12/06/24 08:46
RBC 3.77 10^6/uL (4.20-5.40) L 12/06/24 08:46
Hgb 11.3 g/dL (12.0-16.0) L 12/06/24 08:46
Hct 34.4 % (37.0-47.0) L 12/06/24 08:46
Plt Count 263 10^3/uL (130-400) 12/06/24 08:46
Sodium 140 mmol/L (135-145) 12/09/24 07:07
Potassium 4.2 mmol/L (3.5-5.1) 12/09/24 07:07
Chloride 109 mmol/L (98-107) H 12/09/24 07:07
Carbon Dioxide 18 mmol/L (22-30) L 12/09/24 07:07
BUN 95 mg/dl (7-17) H 12/09/24 07:07
Creatinine 3.3 mg/dL (0.6-1.0) H 12/09/24 07:07
eGFR 13.76 12/09/24 07:07
Glucose 89 mg/dl (70-99) 12/09/24 07:07
Calcium 7.2 mg/dl (8.4-10.2) L 12/09/24 07:07
Phosphorus 6.9 mg/dl (2.5-4.5) H 12/08/24 07:12
Cez-P-Xirinkukwhz Pept > 58055 pg/ml 12/05/24 21:20
Albumin 4.3 g/dl (3.5-5.0) 12/05/24 21:20
Physical Exam
-
Vital Signs:
Vital Signs
Temp Pulse Resp BP Pulse Ox
97.6 F 87 18 113/66 95
12/09/24 11:17 12/09/24 11:17 12/09/24 11:17 12/09/24 11:17 12/09/24 11:17
Cardiovascular:: Regular rate and rhythm
Respiratory:: Bilateral: CTA (decreased)
Lung Excursion:: Normal
Abdomen:: Nontender and Soft
Bowel Sounds:: Normal
Extremity Edema:: +2: Bilateral:
Velasco Catheter: No
[2024-12-09 13:02] LABS: Uric Acid 15.3 mg/dl (2.5-6.2)
[2024-12-09] MEDS: LIDOCAINE 4% PATCH 1 PATCH TOPICAL (13:21)
--- NOTE | 2024-12-09 13:27 | W.PN.UPDATE ---
Update Note
Progress Note Update
Seen and examined the patient. Agree with assessment plan put forth by the resident. See changes in my documentation.
79-year-old with shortness of breath and gen weakness on arrival. Feels well now.
Ultrasound of the kidneys-severe chronic bilateral renal disease. Diffuse urinary bladder wall thickening and trabeculation. 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
Echo 11/28/2023-mild LVH with dilated LV end global hypokinesis and septal dyskinesis. Mild the PDA and inferior wall akinesis. EF 20 to 25%. Bioprosthetic mitral valve. Severe LA dilatation. Moderate to severe TR pulmonary artery pressure 29
mmHg
CVS: S1-S2 normal, sm RHB
Chest: CTA B/L
Abdomen: Soft, NT / Bowel sounds present
Extremities: B/L edema-present but better
Pain in the left foot lateral metatarsal area-no redness or warmth movements are painful pulses palpable
# Pain in the left foot
Patient states that she has had this when she was at [facility]
Possible gout given elevated uric acid level
If patient agreeable we can use steroids
Local pain patch
X-ray of the foot
# Acute kidney injury on CKD stage III
Metabolic acidosis and hyperkalemia secondary to above
Entresto held, no Entresto for discharge
Lasix dosing per nephrology
Continue p.o. bicarb
Patient apparently had discussions about dialysis but undecided. She does not want to engage in a conversation to address dialysis access
Discussed with patient and family regarding dialysis access if she were to decide on getting dialysis
# Chronic HFrEF with ischemic cardiomyopathy
Echo with ejection fraction 20 to 25%
AICD has been recommended by market consultant at [facility] in the past- Needs to follow up
Diuresis 40 mg of Lasix daily
Cardiology following.
# Coronary artery disease history of CABG
# History of mitral valve replacement-bioprosthetic
# Paroxysmal atrial fibrillation-Eliquis, also on amiodarone, metoprolol
# Left bundle branch block
# Hypocalcemia-vitamin D levels stable
# Hyperlipidemia-continue statin
# COPD without exacerbation-continue Incruse Ellipta or equivalent
# Hypothyroidism-continue levothyroxine patient refusing
# History of pulmonary embolism-continue Eliquis
# History of laryngeal cancer status post surgery in the past.
# Smoker-cessation counseling
# DVT prophylaxis-Eliquis
# DNR
Xarelto was changed to Eliquis this admission because of renal dysfunction
She wants to go to rehab discussed with case management they are waiting for authorization for patient to go to rehab.
Patient refused generic levothyroxine states that that makes her feel tired. Explained to her that hospital may not carry brand-name and asked if she can bring from home. Patient states that she does not want to bring medicines that she paid for
from home. When asked how much was that she said that she does not need to pay but that is not the point she does not want to bring her outpatient medicines to the hospital and we are supposed to provide. Patient is aware about ramifications of
not taking the medicines as prescribed.
If patient is agreeable we can start steroids
Discussed with case management
Await rehab placement
[2024-12-09 15:35] VITALS: BP 100/64
[2024-12-09 19:38] VITALS: BP 138/84
[2024-12-09] MEDS: REMOVE LIDOCAINE PATCH 1 PATCH REMOVE (19:40)
[2024-12-09] MEDS: LIPITOR 40 MG PO (21:28)
[2024-12-09 23:19] VITALS: BP 107/68
[2024-12-10 03:14] VITALS: BP 120/76
[2024-12-10 06:00] VITALS: BMI 25.7
[2024-12-10] MEDS: SPIRIVA RESPIMAT 2.5 MCG 2 PUFF INH (07:19)
[2024-12-10 07:26] VITALS: BP 116/74
[2024-12-10] MEDS: PHOSLO 667 MG PO (07:49)
[2024-12-10] MEDS: SYNTHROID 150 MCG PO (07:49)
[2024-12-10] MEDS: TOPROL XL 25 MG PO (07:49)
[2024-12-10] MEDS: ASPIR LOW (ENTERIC COATED) 81 MG PO (07:49)
[2024-12-10] MEDS: PROTONIX 40 MG PO (07:49)
[2024-12-10] MEDS: LIDOCAINE 4% PATCH 1 PATCH TOPICAL (07:50)
[2024-12-10] MEDS: ELIQUIS 2.5 MG PO (07:50)
[2024-12-10] MEDS: SODIUM BICARBONATE 650 MG PO ×2 (07:50→15:46)
[2024-12-10] MEDS: PACERONE 200 MG PO (07:50)
[2024-12-10] MEDS: LASIX 40 MG PO (07:50)
--- NOTE | 2024-12-10 07:59 | W.PN.HOSP.TC ---
Addendum entered and electronically signed by Velia Villafana MD 12/10/24 12:47:
Seen and examined the patient. Agree with the plan set forth by the resident
Patient's daughter was at bedside
Exam chest is clear to auscultation
Abdomen soft and nontender
Bilateral pedal edema present
Patient denies any foot pain unless touched. She does not want to take any medicines for pain.
Elevated uric acid levels discussed with patient and daughter and the need to get started on allopurinol as outpatient when pain subsides. We do not want to start it if this is a gout flare without treating acute gout flare. Patient states she
does not have any pain today.
Calcium noted discussed with nephrology. Increased PhosLo and continue calcium carbonate. Normal PTH level noted normal vitamin D levels noted
Xarelto was changed to Eliquis
Dose of PhosLo increased, will give 1 g of calcium rider prior to discharge
Dose of Synthroid will be increased to 175 mcg daily-I also question her compliance. Repeat thyroid function test in 6 weeks
Will give a dose of Monurol also for abnormal U/A with USS findings. Pt with no symptoms reported.
D/W RN
D/W Nephrology
D/W daughter at bed side
More than 30 minutes spent in discharge including
Final examination of the patient
Summarizing hospital stay
Instructions for continuing care to all relevant caregivers
Preparation of discharge records, prescriptions, and referral forms
Original Note:
Today's Communication/Plan
-
Weight decreased from yesterday.
Calcium 6.9. PhosLo increased from 667 to 1334 mg with meals.
Prior authorization for SNF received. Patient discharged today.
Assessment / Plan
Assessment / Plan
Impression
Patient is a 79y F with PMH significant for ASCVD, ischemic cardiomyopathy, HFrEF and CKD III who presents to ED complaining of SOB and fatigue. Patient was admitted to 11/25 - 11/27 for CHF. She received a brief course of IV Lasix and was
discharged with instructions to take Lasix PRN for weight gain and to discontinue her Entresto. She did neither of those things. Patient is typically followed by Dr. Dowd ([facility]). She has been recommended ICD placement
but this was initially postponed due to renal impairment and patient later signed out AMA.
Patient underwent CABG and BioMVR about 8 months ago and notes that she was doing well until about 4 weeks ago.
Patient also admits that she started smoking again after being told she had 'heart failure' because she was 'upset'.
She has been using an albuterol rescue inhaler at home 'all of the time' due to her feelings of dyspnea.
Plan
# Acute kidney injury on CKD stage III
Metabolic acidosis and hyperkalemia secondary to above
Entresto held. No Entresto for discharge
Lasix dosing per nephrology.
Continue p.o. bicarb
Patient had discussions about dialysis but undecided. She does not want to engage in a conversation to address dialysis access
# Chronic HFrEF with ischemic cardiomyopathy
Echo with ejection fraction 20 to 25%
AICD has been recommended by divine healer at [facility] in the past
Diuresis 40 mg of Lasix daily. Discharged on Lasix 40 mg p.o. daily
Cardiology following.
# Hypocalcemia
- vitamin D level normal
� calcium carbonate at increased dose of 1000 mg p.o. twice daily. Discontinued calcium carbonate after calcium normalized
� Calcium acetate 1334 mg with meals
#Hyperphosphatemia
� Calcium acetate (phosphate binder) 1334 mg with meals
#Left foot pain
Patient reported pain at left foot on 12/09/2024. Focal tenderness to palpation on dorsal lateral surface. Patient denies history of gout
- Uric acid elevated at 15.3, which could be due to chronic kidney disease or gout.
- Left foot x-ray without fracture, unremarkable
� Lidocaine patch provided
� Patient declined prednisone, but agreed to allopurinol. Will discharge patient with allopurinol and instructions to take it after the acute pain subsides
# Coronary artery disease history of CABG in 05/2024
# History of mitral valve replacement-bioprosthetic
# Paroxysmal atrial fibrillation-Eliquis, also on amiodarone, metoprolol
# Left bundle branch block
# Hyperlipidemia-continue statin
# COPD without exacerbation-continue Incruse Ellipta or equivalent
# Hypothyroidism-continue levothyroxine
# History of pulmonary embolism-continue Eliquis
# History of laryngeal cancer status post surgery in the past.
# Smoker-cessation counseling
# DVT prophylaxis-Eliquis
# DNR
Part of this note was created using voice recognition system. Occasional wrong word or��sound alike� substitutions may have inadvertently occurred due to the inherent limitations of voice recognition software. If noted kindly bring it to my
attention for correction.
Anticipated Discharge: Today
Subjective/Interval History
-
Date of Service: December 10, 2024
No acute events overnight. Patient states pain in her left foot is decreased.
Objective Data
-
Labs:
Laboratory Results
12/10/24
07:42
WBC Pending
Hgb Pending
Hct Pending
Plt Count Pending
Sodium Pending
Potassium Pending
Chloride Pending
Carbon Dioxide Pending
BUN Pending
Creatinine Pending
Glucose Pending
Calcium Pending
Vital Signs:
Vital Signs
Temp Pulse Resp BP Pulse Ox
97.6 F 89 18 116/79 95
12/10/24 07:26 12/10/24 07:49 12/10/24 07:26 12/10/24 07:49 12/10/24 07:26
I&O
12/09/24 12/10/24 12/11/24
06:59 06:59 06:59
Intake Total 1979 / 1979 600 / 600 120 / 120
Output Total 360 / 360
Balance 1979 / 1979 240 / 240 120 / 120
Review of Systems
-
History Source: Patient
Constitutional: Reports No Symptoms
EENT: Reports No Symptoms Reported
Respiratory: Reports No Symptoms
Cardiac: Reports No Symptoms
Abdomen/GI: Reports No Symptoms
Musculoskeletal: Reports Joint Pain (Decreased pain in left foot)
Skin: Reports Other (Patient removed bandage from right johnston)
Neuro: Reports No Symptoms
Physical Exam
-
General: Well Developed and Well Nourished
HEENT: Normocephalic and Atraumatic
Respiratory: Clear to Auscultation and Wheezes
Cardiac: Regular Rhythm and S1/S2
GI: Soft, Nontender, Nondistended and Normal Bowel Sounds
Musculoskeletal: No Clubbing, No Cyanosis, Edema, Right Lower Extrem, Edema, Left Lower Extrem and Other (Slight tenderness to palpation at the left foot)
Skin: Warm, Dry and Lesions (Right johnston with a few abrasions)
Neuro: Awake, Alert and Oriented
Data Reviewed
-
Total Time Spent with Patient (in minutes): 25
Diagnostic Radiology: Report Reviewed by me
Labs: Labs Reviewed by me
[2024-12-10 08:40] LABS: Hematocrit 37.4 % (37.0-47.0); Hemoglobin 12.2 g/dL (12.0-16.0); Mean Corp Hgb Conc. 32.6 g/dL (33.0-37.0); Mean Corpuscular Volume 92.1 fL (81.0-99.0); Nucleated Red Blood Cells % 0.3 %; Platelet Count 249 10^3/uL (130-400); Red Cell Dist. Width 20.2 % (11.5-14.5)
[2024-12-10 09:26] LABS: Blood Urea Nitrogen 89 mg/dl (7-17); Calcium 6.9 mg/dl (8.4-10.2); Carbon Dioxide 28 mmol/L (22-30); Chloride 103 mmol/L (98-107); Estimated Creatinine Clearance 15 ml/min; Glucose 74 mg/dl (70-99); Potassium 3.6 mmol/L (3.5-5.1); Sodium 140 mmol/L (135-145); eGFR 16.07
--- NOTE | 2024-12-10 10:03 | W.DCSUMMARY ---
Discharge Summary
Discharge Data
Date of Admission: 12/06/24
Date of Discharge: 12/10/24
Total time spent discharging patient (in min): 65
-
Pending Results: No
Hospital Course
HPI
Ms. Daija Burrell has a PMH significant for ASCVD, ischemic cardiomyopathy, HFrEF and CKD III, and presented with SOB and fatigue. She was admitted here 11/25 - 11/27 for CHF. She received a brief course of IV Lasix and was discharged with
instructions to take Lasix PRN for weight gain and discontinue her Entresto. She reports doing neither. Patient is typically followed by Dr. Dowd ([facility]). She was recommended ICD placement but this was initially
postponed due to renal impairment and she later signed out AMA.
She underwent CABG and BioMVR in 05/2024 and notes that she was doing well until about 4 weeks ago.
She complains of worsening SOB - mostly with exertion or with lying flat. She has no chest pain, cough, fevers / chills. There is no significant LE swelling.
She also admits that she started smoking again after being told she had 'heart failure' because she was 'upset'.
She has been using an albuterol rescue inhaler at home 'all of the time' due to her feelings of dyspnea.
ED course
CBC unremarkable. Chemistry with multiple electrolyte abnormalities, including hyperkalemia as well as hypocalcemia. Acute on chronic renal insufficiency noted with creatinine of 3.8 elevated from 1.8 upon discharge. Troponin elevated to 0.05 which
is stable and likely secondary to demand ischemia. Pro-bnp >27,000.
Chest x-ray show evidence of cardiomegaly; otherwise it appears stable.
Patient�s blood pressure is soft and given significant renal insufficiency � held diuretic/lasix. Patient may require dialysis. Patient given 1gm calcium gluconate. Patient accepted to hospitalist service in stable condition for continued management.
# Acute kidney injury on CKD stage III
Metabolic acidosis and hyperkalemia secondary to above
Entresto held. No Entresto for discharge
Lasix dosing per nephrology.
Continue p.o. bicarb
Patient had discussions about dialysis but undecided. She does not want to engage in a conversation to address dialysis access
# Chronic HFrEF with ischemic cardiomyopathy
Echo with ejection fraction 20 to 25%
AICD has been recommended by tire room supervisor at [facility] in the past
Diuresis 40 mg of Lasix daily. Discharged on Lasix 40 mg p.o. daily
Cardiology following.
# Hypocalcemia
- vitamin D levels pending
� Continue home calcium carbonate at increased dose of 1000 mg p.o. twice daily
� Calcium acetate 1334 mg with meals
#Hyperphosphatemia
� Calcium acetate (phosphate binder) 1334 mg with meals
#Left foot pain
Patient reported pain at left foot on 12/09/2024. Focal tenderness to palpation on dorsal lateral surface. Patient denies history of gout
- Uric acid elevated at 15.3, which could be due to chronic kidney disease or gout.
- Left foot x-ray without fracture, unremarkable
� Lidocaine patch provided
� Patient declined prednisone, but agreed to allopurinol. Discharged patient with allopurinol and instructions to take it after the acute pain subsides
Discharge Plan
-
Patient Disposition: Home with Home Care
Discharge Diagnosis/Procedures: Primary:
Acute kidney injury/acute exacerbation of chronic kidney disease
Acute exacerbation of chronic failure heart failure
Hyperphosphatemia
Hypocalcemia
Secondary:
Leg weakness
Paroxysmal A-fib
Mitral regurgitation, bioprosthetic valve
Aortic regurgitation
Hyperlipidemia
COPD
Hypothyroidism
Condition: Fair
Diet: Low Cholesterol and Low Sodium
Activity: As tolerated
Driving Restrictions: As prior to admission
Specialty Instructions: Weigh Daily- Call MD for wt gain/loss 3 lbs overnight/5 lbs in 1 week
Referrals:
Luz Vann MD, Resident [Family Practice Resident Year2, General] - in one to two weeks
Referral Note: Primary care
Favian Dowd MD [Non-Admitting Privileges, Internal Medicine] - in one to two weeks
Referral Note: Discuss possible AICD (automatic implantable cardioverter-defibrillator)
Chichi Howard MD [Active, Nephrology] - in less than 1 week
Referral Note: Acute kidney injury follow-up. Discuss possible dialysis.
Additional Discharge Medication Instructions: Please go to your primary care appointment tomorrow 12/09/24 at 2 PM. Please also see a tire room supervisor and study assistant, as they can help you get better, such as with an implantable cardiac defibrillator.
Please take Lasix 40 mg daily. Please see a doctor (be it primary care, cardiology, or nephrology) for refills.
Please get blood work in 2 weeks (basic metabolic panel) to follow-up on your kidney function (creatinine, BUN) and electrolytes (follow-up on hypocalcemia, hyperphosphatemia).
Since your uric acid levels are high, which could be due to chronic kidney disease or gout, please take allopurinol 50 mg twice weekly (every 3 to 4 days) after your left foot pain goes away.
Prescriptions:
New
(DME) Basic metabolic panel
See Rx Instructions .ROUTE .MEDSUPPLY Qty: 1 0RF
Rx Instructions:
Kidney function (creatinine, BUN). Follow-up on hypocalcemia and hyperphosphatemia.
furosemide 40 mg Tablet
40 mg PO DAILY Qty: 14 0RF
calcium acetate 667 mg tablet
1,334 mg PO TID Qty: 42 0RF
Rx Instructions:
Hypophosphatemia and hypocalcemia
allopurinol 100 mg tablet
50 mg PO .twice weekly Qty: 4 0RF
Rx Instructions:
Take allopurinol after your left foot pain subsides, 50 mg twice weekly (every 3 to 4 days)
Continued
Incruse Ellipta 62.5 mcg/actuation Blister With Device
1 inh INHALATION R DAILY
atorvastatin [Lipitor] 40 mg Tablet
40 mg PO HS
amiodarone 200 mg Tablet
200 mg PO BID
aspirin 81 mg Tablet,Delayed Release (Dr/Ec)
81 mg PO DAILY
calcium carbonate 500 mg calcium (1,250 mg) Tablet
500 mg PO DAILY
metoprolol succinate [Toprol XL] 25 mg Tablet Extended Release 24 Hr
25 mg PO BID
Refresh Optive 0.5-0.9 % Drops
1 drp BOTH EYES Q6HPRN PRN (Reason: dryness)
Xarelto 15 mg Tablet
15 mg PO DAILY
levothyroxine [Synthroid] 150 mcg Tablet
150 mcg PO DAILY
Discontinued
sacubitril-valsartan [Entresto] 24-26 mg Tablet
1 tab PO BID
Discharge Date and Time
Print Language: MACANESE
--- NOTE | 2024-12-10 10:16 | CM ---
Addendum entered by Merlin Alvarenga 12/10/24 15:38:
pick remover time 4:30 p.
Original Note:
CM following rte: discharge planning.
Reviewed pt's chart, met with pt and spoke to pt's daughter Carmen to update on discharge plan progress.
According to MD pt is medically stable to be discharged. Pt is awre, expressed her agreement. IMM reviewed, placed on chart, pt has a copy.
CM spoke to [facility] Telma and [facility] director of recruitment and admissions Tabitha and they confirmed that [facility] has a bed and pt is accepted for admission today
CM spoke to sales representative Mayuri from [facility] and she confirmed that pt is approved for 11 days from today 12/10/24 till 12/21/24, Auth: [id number], reviewer Yazmin Puga, fax: [phone]
Auth information forwarded to [facility] director of recruitment and admissions
to arrange ambulance transport [facility] completed and left with .
[facility] nursing report: [phone]
Discharge instructions fax: [phone].
D/C plan: [facility]
[2024-12-10 10:28] LABS: Albumin 3.9 g/dl (3.5-5.0)
[2024-12-10 11:10] VITALS: BP 107/67
[2024-12-10] MEDS: PHOSLO 1334 MG PO (12:12)
--- NOTE | 2024-12-10 12:51 | W.PN.NEPH.PH ---
Today's Communication / Plan
-
ok for d/c
Assessment/Plan
-
Impression:
OFELIA on CKD III-no baseline cr, last jamal 1.8
Metabolic Acidosis-mixed
Mild Hyperkalemia
Ischemic Cardiomyopathy
Chronic HFrEF = 20-25%.
Paroxysmal Atrial Fibrillation
COPD without Acute Exacerbation
CAD status post CABG
Valvular heart disease status post AVR and MVR
Hypothyroidism status post thyroid resection
Laryngeal cancer status post resection
Hyperphosphatemia
Echo:
Echo 11/27/2024: EF 20 to 25%. Mild LVH with dilated left ventricle and global hypokinesis with septal and dyskinesis, mid and apical inferior and apical akinesis. Severe left atrial dilation. Bioprosthetic mitral valve with mean gradient 2 and no
regurgitation. Moderate to severe TR with PAP 29 mmHg
Plan:
cr fluctuating trend , cr down to 2.8
vol status stable on lasix 40mg po daily
no entresto still
met acidosis stable on po bicarb-can decrease to BID
luis alfredo is still low, could cont both luis alfredo carbonate and phoslo
Pt notes that having SZ from hypocalcemia of 4 several years ago and was seen by Endo
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
has normal vit D level
right foot pain, high U acid level likely from diuresis, can not r/o gout-reportedly refused meds
d/w pt and daughter at bedside that she need to have OP data entry assistant. (she does not have a PCP, only endo for thyroid. She does not really follow with cardiology
previously d/w pt that CKD progression typically has few if any symptoms, and regular labs are required to follow and that even at ESRD she may not have significant symptoms
she could undergo ICD from renal perspective if needed. It would not change her renal prognosis.
currently no emergent dialysis needs
BMP 3-5days
-
-
Date of Service: December 10, 2024
CC / HPI / ROS
-
Chief Complaint:
OFELIA
History of Present Illness:
OFELIA/Cr down to 2.8
BUN down to 89
BP stable
luis alfredo low at 6.9
Review of Systems:
no CP/SOB at rest
Labs
-
Labs:
WBC 6.4 10^3/uL (4.8-10.8) 12/10/24 07:42
RBC 4.06 10^6/uL (4.20-5.40) L 12/10/24 07:42
Hgb 12.2 g/dL (12.0-16.0) 12/10/24 07:42
Hct 37.4 % (37.0-47.0) 12/10/24 07:42
Plt Count 249 10^3/uL (130-400) 12/10/24 07:42
Sodium 140 mmol/L (135-145) 12/10/24 07:42
Potassium 3.6 mmol/L (3.5-5.1) 12/10/24 07:42
Chloride 103 mmol/L (98-107) 12/10/24 07:42
Carbon Dioxide 28 mmol/L (22-30) 12/10/24 07:42
BUN 89 mg/dl (7-17) H 12/10/24 07:42
Creatinine 2.9 mg/dL (0.6-1.0) H 12/10/24 07:42
eGFR 16.07 12/10/24 07:42
Glucose 74 mg/dl (70-99) 12/10/24 07:42
Calcium 6.9 mg/dl (8.4-10.2) L* 12/10/24 07:42
Phosphorus 6.9 mg/dl (2.5-4.5) H 12/08/24 07:12
Jbx-T-Envmkhxcwmd Pept > 84236 pg/ml 12/05/24 21:20
Albumin 3.9 g/dl (3.5-5.0) 12/10/24 07:42
Physical Exam
-
Vital Signs:
Vital Signs
Temp Pulse Resp BP Pulse Ox
98.4 F 89 18 107/67 99
12/10/24 11:10 12/10/24 11:10 12/10/24 11:10 12/10/24 11:10 12/10/24 11:10
Cardiovascular:: Regular rate and rhythm
Respiratory:: Bilateral: Coarse
Lung Excursion:: Normal
Abdomen:: Nontender and Soft
Bowel Sounds:: Normal
Extremity Edema:: +2: Bilateral:
Velasco Catheter: No
[2024-12-10] MEDS: CALCIUM GLUCONATE 100 IV (12:52)
[2024-12-10] MEDS: OSCAL CAL 500 500 MG PO (13:43)
[2024-12-10 15:31] VITALS: BP 108/89
[2024-12-10] MEDS: MONUROL 3 GM PO (15:46)
== END 2024-12-10 15:00 | DRG 683 ==
LOC: 2 NORTH 02:34
PROVIDERS: Emergency Medicine; Student in an Organized Health Care Education/Training Program; ADMITTING PHYSICIAN Hospitalist; ATTENDING PHYSICIAN Hospitalist; CONSULT PHYSICIAN Internal Medicine; CONSULT PHYSICIAN Internal Medicine Cardiovascular Disease; EMERGENCY PHYSICIAN Student in an Organized Health Care Education/Training Program
DX: N17.9 Acute kidney failure, unspecified (principal); E87.20 Acidosis, unspecified; I50.22 Chronic systolic (congestive) heart failure; I48.4 Atypical atrial flutter; I48.0 Paroxysmal atrial fibrillation; I25.10 Atherosclerotic heart disease of native coronary artery without angina pectoris; J44.9 Chronic obstructive pulmonary disease, unspecified; E83.51 Hypocalcemia; E87.5 Hyperkalemia; I44.7 Left bundle-branch block, unspecified; I25.5 Ischemic cardiomyopathy; F17.200 Nicotine dependence, unspecified, uncomplicated; I27.20 Pulmonary hypertension, unspecified; I34.0 Nonrheumatic mitral (valve) insufficiency; I07.1 Rheumatic tricuspid insufficiency; E83.39 Other disorders of phosphorus metabolism; N18.32 Chronic kidney disease, stage 3b; I35.1 Nonrheumatic aortic (valve) insufficiency; E66.9 Obesity, unspecified; E89.0 Postprocedural hypothyroidism; M79.672 Pain in left foot; Z66 Do not resuscitate; Z79.01 Long term (current) use of anticoagulants; Z95.1 Presence of aortocoronary bypass graft; Z86.711 Personal history of pulmonary embolism; Z79.890 Hormone replacement therapy; Z79.82 Long term (current) use of aspirin; Z91.199 Patient's noncompliance with other medical treatment and regimen due to unspecified reason; Z95.3 Presence of xenogenic heart valve; Z85.21 Personal history of malignant neoplasm of larynx; Z68.25 Body mass index [BMI] 25.0-25.9, adult
CPT/HCPCS: 71046; 73630; 76770; 80048; 80053; 81003; 81015; 82040; 82306; 82330; 82570; 83036; 83605; 83735; 83880; 83970; 84100; 84156; 84300; 84439; 84443; 84484; 84550; 85025; 85027; 92610; 93005; 94640; 97162; 97530; 99285